=== PATIENT | male | born 1945 | race Caucasian/White ===

== ENCOUNTER 2016-03-18 13:53 | Emergency (ER) | payer BC, MEDICARE ==
[2016-03-18 15:26] LABS: MEAN CORPUSCULAR HGB CONC 33.7 g/dl (32.0-36.5); RED CELL DISTRIBUTION WIDTH 11.6 % (11.5-14.5); WHITE BLOOD COUNT 8.5 K/mm3 (4.0-10.0)
[2016-03-18 15:48] LABS: ALBUMIN/GLOBULIN RATIO 1.38 (1.00-1.93); ALKALINE PHOSPHATASE 76 U/L (45-117); ALT/SGPT 16 U/L (12-78); ANION GAP 6 MEQ/L (8-16); AST/SGOT 19 U/L (15-37); BILIRUBIN,DIRECT < 0.1 MG/DL (0.0-0.2); BILIRUBIN,TOTAL 0.4 MG/DL (0.2-1.0); BLOOD UREA NITROGEN 19 MG/DL (7-18); CALCIUM LEVEL 8.9 MG/DL (8.8-10.2); CARBON DIOXIDE LEVEL 28 MEQ/L (21-32); CHLORIDE LEVEL 104 MEQ/L (98-107); CREATININE FOR GFR 1.28 MG/DL (0.70-1.30); GLUCOSE, FASTING 93 MG/DL (83-110); POTASSIUM SERUM 4.3 MEQ/L (3.5-5.1); SODIUM LEVEL 138 MEQ/L (136-145); TOTAL PROTEIN 6.9 GM/DL (6.4-8.2)
[2016-03-18 15:53] LABS: AMPHETAMINES LEVEL URINE NEGATIVE (NEGATIVE); BENZODIAZEPINES URINE NEGATIVE (NEGATIVE); COCAINE METABOLITE URINE NEGATIVE (NEGATIVE); CONTROL LINE INT CTR LINE PRESENT; METHADONE URINE NEGATIVE (NEGATIVE); OPIATES URINE NEGATIVE (NEGATIVE); TRICYCLIC ANTIDEPRESS URINE POSITIVE (NEGATIVE)
--- NOTE | 2016-03-18 18:15 | EDDOCDS ---
Physician Documentation [facility] Name: Herman Palomares Age: 70 yrs Sex: Male : 1945 Arrival Date: 03/18/2016 Time: 13:53 Bed [facility] Private MD: Disposition: 03/18 17:39 Critical Care: Critical care not applicable. pc Disposition: 03/18/16 17:42 Discharged to Home/Self Care. Impression: Alcohol use, unspecified with alcohol-induced persisting dementia. - Condition is Stable. - Discharge Instructions: Dementia. - Medication Reconciliation, Local Pharmacy Hours form. - Follow up: [facility] [place], [place]; When: Call to arrange an appointment; Reason: Continuance of care. - Problem is chronic. - Symptoms are unchanged. HPI: 15:03 This 70 yrs old Male presents to ER via Police Car with complaints of Psych Problem. 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 A visiting aid found him in his pc home today, with the gas of his stove turned on and a gun by the door, with the patient stating he was afraid to the people trying to get into his apartment. His [place] Psychiatrist issued a pick pulling machine operator order and police brought him here. He has a long-standing psychiatric history and also has dementia. He has been seen by his Psychiatrist recently and started on Seroquel. Historical: - Allergies: no known allergies; - Home Meds: 1. atorvastatin 20 mg oral tab 1 tab once daily (Last dose: 03/18/2016) 2. folic acid 1 mg Oral tab 1 tab once daily (Last dose: 03/18/2016) 3. hctz/lisinopril 12.5/10 mg 4. memantine 10 mg oral tab 2 times per day 5. multivitamin Oral cap daily 6. quetiapine 100 mg oral tab 1 tab hs 7. vitamin B complex oral cap daily 8. aspirin 81 mg Oral chew 1 tab once daily 9. Fish Oil 1,000 mg oral cap daily 10. garlic oral tab daily 11. naproxen 250 mg Oral tab 1 tab - PMHx: colon cancer; dementia/ memory loss; Hypercholesterolemia; Depression; - PSHx: Colon Resection; - The history from nurses notes was reviewed: and I agree with what is documented. - Social history: Smoking status: Patient uses tobacco products, current some day smoker. No barriers to communication noted, The patient speaks fluent Albanian. - Family history: Not pertinent. - : The pt / caregiver states he / she is not on anticoagulants. Home medication list is obtained from the patient. - Hospitalizations: : No recent hospitalization is reported. - Exposure Risk Screening:: None identified. - Immunization history:: All immunizations up-to-date. - Social history:: the patient is a non-smoker, the patient formerly used alcohol. ROS: 15:12 All systems are negative except as listed. The psychiatric and neurological components pc are also addressed in the HPI. Exam: 15:12 General Appearance: alert, no acute distress. pc 15:12 ENT: ear, nose and throat normal, pharynx normal. 15:12 Eyes: pupils equal, round and reactive to light, extraocular motions intact. 15:12 Neck: The exam reveals no acute abnormalities. ROM is normal and painless. No nuchal rigidity is noted.. 15:12 Respiratory: breathing is even and unlabored, breath sounds are normal. 15:12 Cardiovascular: regular pulse rate, regular heart rhythm, normal heart sounds, equal and full pulses bilaterally. 15:12 Abdomen: soft, non-tender, no organomegaly, normal bowel sounds. 15:12 Skin: skin color is normal, warm, dry. 15:12 Extremities: The extremities have a grossly normal appearance, are non-tender, without acute ROM abnormalities. 15:12 Neuro: alert, cranial nerves normal as tested, no motor deficits, no sensory deficits, disoriented to time. 15:12 Psych: mood is normal. Vital Signs: 14:02 BP 100 / 63; Pulse 93; Resp 16; Temp 97.9; Pulse Ox 100% on R/A; Weight 63.5 kg / jmk 139.99 lbs; Height 5 ft. 11 in. (180.34 cm); 17:54 BP 130 / 69; Pulse 115; Resp 16; Temp 98.7(TE); Pulse Ox 100% on R/A; Pain 0/10; rn1 14:02 Body Mass Index 19.53 (63.50 kg, 180.34 cm) [facility] MDM: 14:38 Consult PFS/PSA/Banquet Lead: Patient's case requires discussion with on-call pc Psychiatrist ordered. 14:38 Confirm accurate psychiatric medication list and times of last dosage ordered. pc 14:38 Detain Pt Until Medically/PFS Cleared ordered. pc 14:39 Acetaminophen Level Ordered. EDMS 14:39 Basic Metabolic Profile Ordered. EDMS 14:39 Complete Blood Count Ordered. EDMS 14:39 Drug Eval Toxicology ED Only Ordered. EDMS 14:39 Ethyl Alcohol (ethanol) Ordered. EDMS 14:39 Liver Profile Ordered. EDMS 14:39 Salicylate Level Ordered. EDMS 14:39 Thyroid Stimulating Hormone Ordered. EDMS 15:12 Differential diagnosis: depression, acute psychosis, dementia. Plan: labs, PFS eval. pc 15:17 Financial registration complete. gjb 15:37 [facility] Payment Agreement was scanned into [employer] and attached to record. gjb 16:16 Acetaminophen Level Reviewed. pc 16:16 Basic Metabolic Profile Reviewed. pc 16:16 Complete Blood Count Reviewed. pc 16:16 Drug Eval Toxicology ED Only Reviewed. pc 16:16 Salicylate Level Reviewed. pc 16:16 Ethyl Alcohol (ethanol) Reviewed. pc 16:16 Liver Profile Reviewed. pc 16:16 Thyroid Stimulating Hormone Reviewed. pc 17:37 [facility] Legal paperwork was scanned into [employer] and attached to record. ml4 17:39 The patient has been medically cleared for psychiatric evaluation, admission and/or pc transfer. [place]: [place] to the [place] was not completed because the patient did not display any suicidal or homicidal ideation and was not considered a risk to self or others. Data reviewed: old medical records, vital signs, nurses notes, lab test results. Test interpretation: LAB - all labs as ordered have been reviewed, interpreted and considered in the overall management of the clinical presentation;. The patient has been re-examined and re-evaluated. The clinical presentation did not require any ED treatment or interventions. Other consultation: The ED latex foam worker was notified and will evaluate the patient. and through conversations with his family and Psychiatrist, he has had dementia for quite some time and only has had any psychiatric issues, that being depression, for a few weeks. His involvement with psychology services was for his alcohol abuse. Dr. Brantley was consulted and agrees with the daughter and has approved discharge home. . 17:39 Disposition: The historical points, examination findings, and any diagnostic results pc supporting the provided diagnosis, were discussed with the patient or legal guardian. The need for outpatient follow up with the provider listed on their discharge instructions was discussed. They were encouraged to return to [facility], or the nearest ED, if symptoms worsen/persist, or for any other questions/concerns. 18:14 Consult PFS/PSA/Banquet Lead: Patient's case requires discussion with on-call [facility] Psychiatrist complete. Signatures: Dispatcher [employer] EDNE Marlon Jewell MD MD pc Knapp, Jean,RN RN Hailee Barboza, PSA PSA [facility] Tessy Uriarte RN RN Renu Wong The chart was reviewed and I authenticate all verbal orders and agree with the evaluation and treatment provided.Corrections: (The following items were deleted from the chart) 18:13 17:41 REGULAR DIET PLASTIC NEW+DIET ordered. [facility] 18:14 14:38 PSA/PFS to call Nursing Syrup Shed Supervisor, to enter patient data on [place] if [facility] patient involuntarily admitted or transferred for SI or HI ordered. Attachments: 15:37 [facility] [place] barry MTDD
--- NOTE | 2016-03-18 18:15 | EDDOCDS ---
Nurse's Notes [facility] Name: Herman Palomares Age: 70 yrs Sex: Male : 1945 Arrival Date: 03/18/2016 Time: 13:[address] MD: Diagnosis: Alcohol use, unspecified with alcohol-induced persisting dementia Presentation: 03/18 13:59 Presenting complaint: Patient states: [facility] state police brought him here. [facility] neighbor has a vivid imagination. denies suicidal or homicidal ideation. [facility] is not aware of any problems. Mental Health Triage Level: Level 2: The patient was brought to the ED for evaluation because of a legal pickup order. Adult Sepsis Screening: The patient does not have new or worsening altered mentation. Patient's respiratory rate is less than 22. Systolic blood pressure is greater than 100. Patient has a qSOFA score of 0- Negative Sepsis Screen. Suicide/Homicide risk assessment- the patient denies having any suicidal and/or homicidal ideations and does not present with any other emotional, behavioral or mental health complaints. Status: retired. Transition of care: patient was not received from another setting of care. 13:59 Acuity: MICHELLE Level 4 [facility] 13:59 Method Of Arrival: Police Car [facility] Triage Assessment: 14:02 General: Appears in no apparent distress, alert and cooperative. responses slightly [facility] vague responses.. Pain: Denies pain. Historical: - Allergies: no known allergies; - Home Meds: 1. atorvastatin 20 mg oral tab 1 tab once daily (Last dose: 03/18/2016) 2. folic acid 1 mg Oral tab 1 tab once daily (Last dose: 03/18/2016) 3. hctz/lisinopril 12.5/10 mg 4. memantine 10 mg oral tab 2 times per day 5. multivitamin Oral cap daily 6. quetiapine 100 mg oral tab 1 tab hs 7. vitamin B complex oral cap daily 8. aspirin 81 mg Oral chew 1 tab once daily 9. Fish Oil 1,000 mg oral cap daily 10. garlic oral tab daily 11. naproxen 250 mg Oral tab 1 tab - PMHx: colon cancer; dementia/ memory loss; Hypercholesterolemia; Depression; - PSHx: Colon Resection; - The history from nurses notes was reviewed: and I agree with what is documented. - Social history: Smoking status: Patient uses tobacco products, current some day smoker. No barriers to communication noted, The patient speaks fluent [place]. - Family history: Not pertinent. - : The pt / caregiver states he / she is not on anticoagulants. Home medication list is obtained from the patient. - Hospitalizations: : No recent hospitalization is reported. - Exposure Risk Screening:: None identified. - Immunization history:: All immunizations up-to-date. - Social history:: the patient is a non-smoker, the patient formerly used alcohol. Screenin:08 Screening information is obtained from the patient. Fall risk: No risks identified. jmk Assistance ADL's: requires no assistance with activities of daily living. Abuse/DV Screen: The patient / caregiver reports he/she is: not in a situation that causes fear, pain or injury. Nutritional screening: No deficits noted. Advance Directives: Currently, there is a health care proxy, harvey davenport, daughter. There is There is no living will. There is no Power of Yarder Engineer. Advance directive information has not previously been placed in an [facility] medical record. home support is adequate. Assessment: 14:08 General: Appears alert and cooperative. appropriate eye contact and content of jmk responses.. 16:26 General: Appears in no apparent distress, comfortable, Behavior is cooperative. Pain: mlb1 Denies pain. Neurological:. Respiratory: Airway is patent Respiratory effort is even, unlabored. 17:30 General: Appears in no apparent distress, comfortable, Behavior is cooperative, quiet. mlb1 Pain: Denies pain. Neurological: Level of Consciousness is awake, alert, Oriented to person, place. Respiratory: No deficits noted. 18:11 General: Appears in no apparent distress, comfortable, Behavior is cooperative. Pain: jc4 Denies pain. Neurological: Level of Consciousness is awake, alert, Oriented to person, place. Respiratory: Airway is patent Respiratory effort is even, unlabored, Respiratory pattern is regular, symmetrical. Derm: Skin is pink, warm & dry. Mental Health Eval: 16:23 Mental health consult is initiated at 16:00. Status: The patient is not a gate services supervisor or dependent. [facility] Behavioral Health: The patient is not an established patient of [facility] Behavioral Health. Referral Information: Evaluation referral is generated by the patient's psychiatrist Dr. Hernandez [facility], came in on a 9:41 group segment consultant order with [facility] Fernleylali Khan #[id number]. The patient was referred for evaluation because Pt had a "Shotgun in his apartment, and left the gas stove on," per [place] care givers who came into evaluate the pt for more home care on Wednesday, per Harvey Palomares [phone], pt's daughter. Pt reports he has had that BB gun rifle for years in the same spot, and the stove is malfunctioning and has informed the landlord. Pt has early onset of dementia and has been seeing Dr. Hernandez for one year getting help to stop drinking alcohol after 40 run with alcohol. Pt reports he has stopped just shy of one year, drinks non alcohol beer at this time. Pt reports he does not wish to , or kill anyone, denies hearing voices, and is not worried about his neighbors, because that is the reason he does not wish to leave [place] and reside with his daughter and Xwife near [place], not familiar with anyone or the place. Harvey reports luciano has no psyche history, no attempts or threats of suicide, no family history, is compliant with his medications, and was just but on [place] by this Dr. Hernandez. Harvey has set up the US care to increase someone coming into his apartment, has [employer] coming in to set up meals so they will be able to shut off the stove, and has no safety concerns about her father at this time. Harvey would love to have him move down with her, no family in the area, but many friends. She was able to CFS for her father as well, stating the Dr. Hernandez would like to see him placed in an assisted living. Luciano still drives and has a Breathalyzer because of a DWI conviction one year ago. Subjective: The patients chief complaint is Pt reports confused at times, likes were he lives, not sure why he was made to come in, remembers he has a broken BB gun rifle in his apartment and the stove was on because it came back on when he turned it off, he denies hearing voices, and is no paranoid about his surroundings has been in [facility] since [facility] [place] [employer] with his . Pt is A&O X4 , denies any HX of inpatient, suicide attempts, or threats, no family history, daughter confirms the same. Pt does state he misses drinking the real stuff, but is doing fine at this time, has a great way to remember how to remember where he alatorre his car, " I stop before I leave the car, turn around and pay attention to what I see, and then walk to where I am going" . Delusions are denied. Patient's mood is appropriate. Hallucinations are denied. Mental Health history: no relevant mental health problems or treatments. alcohol abuse, Mental Health Admissions: None. Current Outpatient Mental Health Services: Psychiatrist / Agency: Dr. Hernandez for his alcohol abuse and "Getting professional help". Current living environment is The patient currently lives Alone, daughter in [facility] calls regularily and has community support in home to set up his medications, and home care. The patient is . Patient presents to Emergency Department with the following symptoms within the past 2 weeks: sleep disturbance - insomnia. Substance abuse: Pt denies. Mental status exam: Patients appearance is appropriate, Patient's behavior is cooperative, Speech is normal. Affect is appropriate. Mood is appropriate. Hallucinations are denied. Appetite is characterized by binges. Memory is fair. Energy level is tires easily. Content of thought is normal. Thought process is intact. Cognitive level is oriented to person, place, time and situation Patient's insight is good. Judgement is fair. Rapport with interviewer is good. Suicidal Ideation is not present. Homicidal ideation is not present. Disposition: Medically cleared for disposition by Marlon Jewell MD Psychiatric Consult is performed by phone with Dr Flavia Oconnor. 17:26 [facility] Admission Criteria: Not Applicable. Narrative: Cab pass for DC home to [place], informed his daughter, no safety concerns at this time, follow up referral to continue to see his for etoh abuse. Vital Signs: 14:02 BP 100 / 63; Pulse 93; Resp 16; Temp 97.9; Pulse Ox 100% on R/A; Weight 63.5 kg; Height jmk 5 ft. 11 in. (180.34 cm); 17:54 BP 130 / 69; Pulse 115; Resp 16; Temp 98.7(TE); Pulse Ox 100% on R/A; Pain 0/10; rn1 14:02 Body Mass Index 19.53 (63.50 kg, 180.34 cm) [facility] Vitals: 18:14 Log In time N/A- police car arrival. jc4 ED Course: 13:56 Patient visited by Will Bernstein. mm15 13:56 Patient moved to Waiting mm15 14:01 Triage Initiated jmk 14:01 Patient moved to I1 / M1 mcp 14:03 Marlon Jewell MD is Attending Physician. pc 14:08 The patient / caregiver is instructed regarding the plan of care and ED course. jmk 14:10 Patient visited by Sarai Sky. nb2 14:10 Psych Safety Check: Location: Medical Room. Visual Assessment: Cooperative. nb2 14:24 Patient visited by Sarai Sky. nb2 14:24 Psych Safety Check: Location: Medical Room. Visual Assessment: Cooperative. nb2 14:39 Patient visited by Marlon Jewell MD. pc 14:40 Psych Safety Check: Location: Medical Room. Visual Assessment:. nb2 14:41 Patient visited by Sarai Sky. nb2 14:55 Patient visited by Sarai Sky. nb2 14:55 Psych Safety Check: Location: Medical Room. Visual Assessment: Cooperative. nb2 15:05 Patient visited by Sarai Sky. nb2 15:05 Acetaminophen Level Sent. nb2 15:05 Basic Metabolic Profile Sent. nb2 15:05 Complete Blood Count Sent. nb2 15:05 Ethyl Alcohol (ethanol) Sent. nb2 15:05 Liver Profile Sent. nb2 15:05 Salicylate Level Sent. nb2 15:05 Thyroid Stimulating Hormone Sent. nb2 15:14 Patient moved to [facility] rn1 15:32 Patient visited by Channing Baxter. rn1 15:34 Drug Eval Toxicology ED Only Sent. mlb1 15:35 Patient name changed from Herman\\S\\\\S\\Lavetsky\\S\\ to Herman\\S\\D\\S\\Lavetsky. EDMS 15:37 [facility] Payment Agreement was scanned into [employer] and attached to record. gjb 15:51 Patient visited by Channing Baxter. rn1 16:02 Patient visited by Channing Baxter. rn1 16:10 Patient visited by Channing Baxter. rn1 16:27 Patient visited by Vinicius Gonzales RN. mlb1 16:36 Patient visited by Channing Baxter. rn1 16:59 Patient visited by Channing Baxter. rn1 17:14 Patient visited by Channing Baxter. rn1 17:37 E Legal paperwork was scanned into [employer] and attached to record. ml4 17:38 Patient visited by Channing Baxter. rn1 17:41 Patient visited by Vinicius Gonzales RN. mlb1 17:42 [facility] is Referral Physician. pc 18:12 No IV's were initiated during this patient's visit. No procedures done that require 4 assistance. Attachments: 17:37 E Legal paperwork ml4 Order Results: Lab Order: Acetaminophen Level; SPEC'M 03/18/16 15:03 Test: ACETAMINOPHEN LEVEL; Value: < 2.0; Range: 10.0-30.0; Abnormal: Below low normal; Units: UG/ML; Status: F Lab Order: Basic Metabolic Profile; SPEC'M 03/18/16 15:03 Test: GLUCOSE, FASTING; Value: 93; Range: 83-110; Units: MG/DL; Status: F Test: BLOOD UREA NITROGEN; Value: 19; Range: 7-18; Abnormal: Above high normal; Units: MG/DL; Status: F Test: CREATININE FOR GFR; Value: 1.28; Range: 0.70-1.30; Units: MG/DL; Status: F Test: GLOMERULAR FILTRATION RATE; Value: 59.0; Range: >42; Status: F Test: SODIUM LEVEL; Value: 138; Range: 136-145; Units: MEQ/L; Status: F Test: POTASSIUM SERUM; Value: 4.3; Range: 3.5-5.1; Units: MEQ/L; Status: F Test: CHLORIDE LEVEL; Value: 104; Range: 98-107; Units: MEQ/L; Status: F Test: CARBON DIOXIDE LEVEL; Value: 28; Range: 21-32; Units: MEQ/L; Status: F Test: ANION GAP; Value: 6; Range: 8-16; Abnormal: Below low normal; Units: MEQ/L; Status: F Test: CALCIUM LEVEL; Value: 8.9; Range: 8.8-10.2; Units: MG/DL; Status: F Test Note: ; Units are mL/min/1.73 m2 Chronic Kidney Disease Staging per NKF: Stage I & II GFR >=60 Normal to Mildly Decreased Stage III GFR 30-59 Moderately Decreased Stage IV GFR 15-29 Severely Decreased Stage V GFR <15 Very Little GFR Left ESRD GFR <15 on SOLAR ENERGY SYSTEM INSTALLER HELPER Lab Order: Complete Blood Count; SPEC'M 03/18/16 15:03 Test: WHITE BLOOD COUNT; Value: 8.5; Range: 4.0-10.0; Units: K/mm3; Status: F Test: RED BLOOD COUNT; Value: 4.09; Range: 4.30-6.10; Abnormal: Below low normal; Units: M/mm3; Status: F Test: HEMOGLOBIN; Value: 12.7; Range: 14.0-18.0; Abnormal: Below low normal; Units: g/dl; Status: F Test: HEMATOCRIT; Value: 37.6; Range: 42.0-52.0; Abnormal: Below low normal; Units: %; Status: F Test: MEAN CORPUSCULAR VOLUME; Value: 92.0; Range: 80.0-96.0; Units: fl; Status: F Test: MEAN CORPUSCULAR HEMOGLOBIN; Value: 31.0; Range: 27.0-33.0; Units: pg; Status: F Test: MEAN CORPUSCULAR HGB CONC; Value: 33.7; Range: 32.0-36.5; Units: g/dl; Status: F Test: RED CELL DISTRIBUTION WIDTH; Value: 11.6; Range: 11.5-14.5; Units: %; Status: F Test: PLATELET COUNT, AUTOMATED; Value: 359; Range: 150-450; Units: k/mm3; Status: F Lab Order: Drug Eval Toxicology ED Only; SPEC'M 03/18/16 15:28 Test: AMPHETAMINES LEVEL URINE; Value: NEGATIVE; Range: NEGATIVE; Status: F Test: BARBITURATES URINE; Value: NEGATIVE; Range: NEGATIVE; Status: F Test: BENZODIAZEPINES URINE; Value: NEGATIVE; Range: NEGATIVE; Status: F Test: CANNABINOIDS URINE; Value: NEGATIVE; Range: NEGATIVE; Status: F Test: COCAINE METABOLITE URINE; Value: NEGATIVE; Range: NEGATIVE; Status: F Test: METHADONE URINE; Value: NEGATIVE; Range: NEGATIVE; Status: F Test: OPIATES URINE; Value: NEGATIVE; Range: NEGATIVE; Status: F Test: TRICYCLIC ANTIDEPRESS URINE; Value: POSITIVE; Range: NEGATIVE; Abnormal: Above high normal; Status: F Test Note: ; ALL PRESUMPTIVE POSITIVE FINDINGS ARE UNCONFIRMED NORMAL VALUES THRESHOLD IN NG/ML AMPHETAMINES 1000 METHAMPHETAMINES 1000 BARBITURATES 300 BENZODIAZEPINES 300 CANNABINOIDS (THC) 50 COCAINE METABOLITE 300 METHADONE 300 OPIATES 300 PHENCYCLIDINE 25 TRICYCLIC ANTIDEPRESSANTS 1000 RESULTS ARE FOR MEDICAL PURPOSES ONLY. ALL URINE SPECIMENS WILL BE SAVED FOR 3 DAYS. IF CONFIRMATION OF A PRESUMPTIVE POSTIVE SCREEN RESULT IS DESIRED, CALL CHEMISTRY ([phone]) AND REQUEST URINE TO BE SENT TO REFERENCE LAB. FOR A LIST OF CLOSELY RELATED COMPOUNDS PLEASE CALL THE LAB. Lab Order: Ethyl Alcohol (ethanol); SPEC 03/18/16 15:03 Test: ETHYL ALCOHOL (ETHANOL); Value: < 0.003; Range: 0.000-0.010; Units: %; Status: F Lab Order: Liver Profile; [facility] 03/18/16 15:03 Test: AST/SGOT; Value: 19; Range: 15-37; Units: U/L; Status: F Test: ALT/SGPT; Value: 16; Range: 12-78; Units: U/L; Status: F Test: ALKALINE PHOSPHATASE; Value: 76; Range: 45-117; Units: U/L; Status: F Test: BILIRUBIN,TOTAL; Value: 0.4; Range: 0.2-1.0; Units: MG/DL; Status: F Test: BILIRUBIN,DIRECT; Value: < 0.1; Range: 0.0-0.2; Units: MG/DL; Status: F Test: TOTAL PROTEIN; Value: 6.9; Range: 6.4-8.2; Units: GM/DL; Status: F Test: ALBUMIN; Value: 4.0; Range: 3.2-5.2; Units: GM/DL; Status: F Test: ALBUMIN/GLOBULIN RATIO; Value: 1.38; Range: 1.00-1.93; Status: F Lab Order: Salicylate Level; [facility] 03/18/16 15:03 Test: SALICYLATE LEVEL; Value: 3.9; Range: 5.0-30.0; Abnormal: Below low normal; Units: MG/DL; Status: F Lab Order: Thyroid Stimulating Hormone; [facility] 03/18/16 15:03 Test: THYROID STIMULATING HORMONE; Value: 0.564; Range: 0.358-3.740; Units: uIU/ML; Status: F Outcome: 17:42 Discharge ordered by Provider. 18:12 Discharge Assessment: Patient awake, alert, patient administered narcotics - no. The jc4 following High Risk Discharge criteria are identified: Yes, patient is a high risk discharge due to reason for visit, patient has been evaluated by PSA during this ED visit. Discharged to home ambulatory, via [place]. Condition: stable. Discharge instructions given to patient, Instructed on discharge instructions, follow up and referral plans. No special radiology studies were completed. Property :Personal belongings accompany Pt. 18:14 Patient left the ED. 4 Signatures: Dispatcher [employer] EDMS Marlon Jewell MD MD pc Knapp, Jean,RN RN Shelly Mohr, RN RN Claire Pompa, PSA PSA ca Sandip Marquez, PSA PSA Vinicius Brown RN RN mlb1 Hailee Sánchez, PSA PSA ml4 Tessy Uriarte RN RN jc4 Will Bernstein mm15 Channing Baxter rn1 Renu Quintana Nicole nb2 DINA
--- NOTE | 2016-03-20 19:15 | EDDOCDS ---
Physician Documentation [facility] Name: Herman Palomares Age: 70 yrs Sex: Male : 1945 Arrival Date: 03/18/2016 Time: 13:53 Bed [facility] Private MD: Disposition: 03/18 17:39 Critical Care: Critical care not applicable. pc Disposition: 03/18/16 17:42 Discharged to Home/Self Care. Impression: Alcohol use, unspecified with alcohol-induced persisting dementia. - Condition is Stable. - Discharge Instructions: Dementia. - Medication Reconciliation, Local Pharmacy Hours form. - Follow up: [facility], [place]; When: Call to arrange an appointment; Reason: Continuance of care. - Problem is chronic. - Symptoms are unchanged. HPI: 15:03 This 70 yrs old Male presents to ER via Police Car with complaints of Psych Problem. pc 15:03 The history is obtained from the patient, case management assistant. A visiting aid found him in his pc home today, with the gas of his stove turned on and a gun by the door, with the patient stating he was afraid to the people trying to get into his apartment. His [place] Psychiatrist issued a bulk picker order and police brought him here. He has a long-standing psychiatric history and also has dementia. He has been seen by his Psychiatrist recently and started on Seroquel. Historical: - Allergies: no known allergies; - Home Meds: 1. atorvastatin 20 mg oral tab 1 tab once daily (Last dose: 03/18/2016) 2. folic acid 1 mg Oral tab 1 tab once daily (Last dose: 03/18/2016) 3. hctz/lisinopril 12.5/10 mg 4. memantine 10 mg oral tab 2 times per day 5. multivitamin Oral cap daily 6. quetiapine 100 mg oral tab 1 tab hs 7. vitamin B complex oral cap daily 8. aspirin 81 mg Oral chew 1 tab once daily 9. Fish Oil 1,000 mg oral cap daily 10. garlic oral tab daily 11. naproxen 250 mg Oral tab 1 tab - PMHx: colon cancer; dementia/ memory loss; Hypercholesterolemia; Depression; - PSHx: Colon Resection; - The history from nurses notes was reviewed: and I agree with what is documented. - Social history: Smoking status: Patient uses tobacco products, current some day smoker. No barriers to communication noted, The patient speaks fluent Romanian. - Family history: Not pertinent. - : The pt / caregiver states he / she is not on anticoagulants. Home medication list is obtained from the patient. - Hospitalizations: : No recent hospitalization is reported. - Exposure Risk Screening:: None identified. - Immunization history:: All immunizations up-to-date. - Social history:: the patient is a non-smoker, the patient formerly used alcohol. ROS: 15:12 All systems are negative except as listed. The psychiatric and neurological components pc are also addressed in the HPI. Exam: 15:12 General Appearance: alert, no acute distress. pc 15:12 ENT: ear, nose and throat normal, pharynx normal. 15:12 Eyes: pupils equal, round and reactive to light, extraocular motions intact. 15:12 Neck: The exam reveals no acute abnormalities. ROM is normal and painless. No nuchal rigidity is noted.. 15:12 Respiratory: breathing is even and unlabored, breath sounds are normal. 15:12 Cardiovascular: regular pulse rate, regular heart rhythm, normal heart sounds, equal and full pulses bilaterally. 15:12 Abdomen: soft, non-tender, no organomegaly, normal bowel sounds. 15:12 Skin: skin color is normal, warm, dry. 15:12 Extremities: The extremities have a grossly normal appearance, are non-tender, without acute ROM abnormalities. 15:12 Neuro: alert, cranial nerves normal as tested, no motor deficits, no sensory deficits, disoriented to time. 15:12 Psych: mood is normal. Vital Signs: 14:02 BP 100 / 63; Pulse 93; Resp 16; Temp 97.9; Pulse Ox 100% on R/A; Weight 63.5 kg / jmk 139.99 lbs; Height 5 ft. 11 in. (180.34 cm); 17:54 BP 130 / 69; Pulse 115; Resp 16; Temp 98.7(TE); Pulse Ox 100% on R/A; Pain 0/10; rn1 14:02 Body Mass Index 19.53 (63.50 kg, 180.34 cm) [facility] MDM: 14:38 Consult PFS/PSA/Real Estate Instructor: Patient's case requires discussion with on-call pc Psychiatrist ordered. 14:38 Confirm accurate psychiatric medication list and times of last dosage ordered. pc 14:38 Detain Pt Until Medically/PFS Cleared ordered. pc 14:39 Acetaminophen Level Ordered. EDMS 14:39 Basic Metabolic Profile Ordered. EDMS 14:39 Complete Blood Count Ordered. EDMS 14:39 Drug Eval Toxicology ED Only Ordered. EDMS 14:39 Ethyl Alcohol (ethanol) Ordered. EDMS 14:39 Liver Profile Ordered. EDMS 14:39 Salicylate Level Ordered. EDMS 14:39 Thyroid Stimulating Hormone Ordered. EDMS 15:12 Differential diagnosis: depression, acute psychosis, dementia. Plan: labs, PFS eval. pc 15:17 Financial registration complete. gjb 15:37 [facility] Payment Agreement was scanned into [email or web address] and attached to record. gjb 16:16 Acetaminophen Level Reviewed. pc 16:16 Basic Metabolic Profile Reviewed. pc 16:16 Complete Blood Count Reviewed. pc 16:16 Drug Eval Toxicology ED Only Reviewed. pc 16:16 Salicylate Level Reviewed. pc 16:16 Ethyl Alcohol (ethanol) Reviewed. pc 16:16 Liver Profile Reviewed. pc 16:16 Thyroid Stimulating Hormone Reviewed. pc 17:37 [facility] Legal paperwork was scanned into [email or web address] and attached to record. ml4 17:39 The patient has been medically cleared for psychiatric evaluation, admission and/or pc transfer. [place]: [place] to [place] was not completed because the patient did not display any suicidal or homicidal ideation and was not considered a risk to self or others. Data reviewed: old medical records, vital signs, nurses notes, lab test results. Test interpretation: LAB - all labs as ordered have been reviewed, interpreted and considered in the overall management of the clinical presentation;. The patient has been re-examined and re-evaluated. The clinical presentation did not require any ED treatment or interventions. Other consultation: The ED workers' compensation mediator was notified and will evaluate the patient. and through conversations with his family and Psychiatrist, he has had dementia for quite some time and only has had any psychiatric issues, that being depression, for a few weeks. His involvement with psychology services was for his alcohol abuse. Dr. Brantley was consulted and agrees with the daughter and has approved discharge home. . 17:39 Disposition: The historical points, examination findings, and any diagnostic results pc supporting the provided diagnosis, were discussed with the patient or legal guardian. The need for outpatient follow up with the provider listed on their discharge instructions was discussed. They were encouraged to return to [facility], or the nearest ED, if symptoms worsen/persist, or for any other questions/concerns. 18:14 Consult PFS/PSA/Real Estate Instructor: Patient's case requires discussion with on-call [facility] Psychiatrist complete. Signatures: Dispatcher [employer] EDPR Marlon Jewell MD MD pc Knapp, Jean,RN RN Hailee Barboza, PSA PSA [facility] Tessy Uriarte RN RN Renu Wong The chart was reviewed and I authenticate all verbal orders and agree with the evaluation and treatment provided.Corrections: (The following items were deleted from the chart) 18:13 17:41 REGULAR DIET PLASTIC NEW+DIET ordered. [facility] 18:14 14:38 PSA/PFS to call Nursing Compressor Operator, to enter patient data on [place] if [facility] patient involuntarily admitted or transferred for SI or HI ordered. Attachments: 15:37 [facility] [place] Agreement barry Chart Complete DINA
--- NOTE | 2016-03-20 19:15 | EDDOCDS ---
Nurse's Notes [facility] Name: Herman Palomares Age: 70 yrs Sex: Male : 1945 Arrival Date: 03/18/2016 Time: 13:[address] MD: Diagnosis: Alcohol use, unspecified with alcohol-induced persisting dementia Presentation: 03/18 13:59 Presenting complaint: Patient states: [facility] state police brought him here. [facility] neighbor has a vivid imagination. denies suicidal or homicidal ideation. [facility] is not aware of any problems. Mental Health Triage Level: Level 2: The patient was brought to the ED for evaluation because of a legal pickup order. Adult Sepsis Screening: The patient does not have new or worsening altered mentation. Patient's respiratory rate is less than 22. Systolic blood pressure is greater than 100. Patient has a qSOFA score of 0- Negative Sepsis Screen. Suicide/Homicide risk assessment- the patient denies having any suicidal and/or homicidal ideations and does not present with any other emotional, behavioral or mental health complaints. Status: retired. Transition of care: patient was not received from another setting of care. 13:59 Acuity: MICHELLE Level 4 [facility] 13:59 Method Of Arrival: Police Car [facility] Triage Assessment: 14:02 General: Appears in no apparent distress, alert and cooperative. responses slightly [facility] vague responses.. Pain: Denies pain. Historical: - Allergies: no known allergies; - Home Meds: 1. atorvastatin 20 mg oral tab 1 tab once daily (Last dose: 03/18/2016) 2. folic acid 1 mg Oral tab 1 tab once daily (Last dose: 03/18/2016) 3. hctz/lisinopril 12.5/10 mg 4. memantine 10 mg oral tab 2 times per day 5. multivitamin Oral cap daily 6. quetiapine 100 mg oral tab 1 tab hs 7. vitamin B complex oral cap daily 8. aspirin 81 mg Oral chew 1 tab once daily 9. Fish Oil 1,000 mg oral cap daily 10. garlic oral tab daily 11. naproxen 250 mg Oral tab 1 tab - PMHx: colon cancer; dementia/ memory loss; Hypercholesterolemia; Depression; - PSHx: Colon Resection; - The history from nurses notes was reviewed: and I agree with what is documented. - Social history: Smoking status: Patient uses tobacco products, current some day smoker. No barriers to communication noted, The patient speaks fluent Tanzanian. - Family history: Not pertinent. - : The pt / caregiver states he / she is not on anticoagulants. Home medication list is obtained from the patient. - Hospitalizations: : No recent hospitalization is reported. - Exposure Risk Screening:: None identified. - Immunization history:: All immunizations up-to-date. - Social history:: the patient is a non-smoker, the patient formerly used alcohol. Screenin:08 Screening information is obtained from the patient. Fall risk: No risks identified. jmk Assistance ADL's: requires no assistance with activities of daily living. Abuse/DV Screen: The patient / caregiver reports he/she is: not in a situation that causes fear, pain or injury. Nutritional screening: No deficits noted. Advance Directives: Currently, there is a health care proxy, harvey davenport, daughter. There is There is no living will. There is no Power of Training Designer. Advance directive information has not previously been placed in an [facility] medical record. home support is adequate. Assessment: 14:08 General: Appears alert and cooperative. appropriate eye contact and content of jmk responses.. 16:26 General: Appears in no apparent distress, comfortable, Behavior is cooperative. Pain: mlb1 Denies pain. Neurological:. Respiratory: Airway is patent Respiratory effort is even, unlabored. 17:30 General: Appears in no apparent distress, comfortable, Behavior is cooperative, quiet. mlb1 Pain: Denies pain. Neurological: Level of Consciousness is awake, alert, Oriented to person, place. Respiratory: No deficits noted. 18:11 General: Appears in no apparent distress, comfortable, Behavior is cooperative. Pain: jc4 Denies pain. Neurological: Level of Consciousness is awake, alert, Oriented to person, place. Respiratory: Airway is patent Respiratory effort is even, unlabored, Respiratory pattern is regular, symmetrical. Derm: Skin is pink, warm & dry. Mental Health Eval: 16:23 Mental health consult is initiated at 16:00. Status: The patient is not a loan service officer or dependent. [facility] Behavioral Health: The patient is not an established patient of [facility] Behavioral Health. Referral Information: Evaluation referral is generated by the patient's psychiatrist Dr. Hernandez [facility], came in on a 9:41 supervisor industrial arts education order with [facility] Milllali Khan #[phone]. The patient was referred for evaluation because Pt had a "Shotgun in his apartment, and left the gas stove on," per [place] care givers who came into evaluate the pt for more home care on Wednesday, per Harvey Palomares [phone], pt's daughter. Pt reports he has had that BB gun rifle for years in the same spot, and the stove is malfunctioning and has informed the landlord. Pt has early onset of dementia and has been seeing Dr. Hernandez for one year getting help to stop drinking alcohol after 40 run with alcohol. Pt reports he has stopped just shy of one year, drinks non alcohol beer at this time. Pt reports he does not wish to , or kill anyone, denies hearing voices, and is not worried about his neighbors, because that is the reason he does not wish to leave [place] and reside with his daughter and Xwife near [place], not familiar with anyone or the place. Harvey reports luciano has no psyche history, no attempts or threats of suicide, no family history, is compliant with his medications, and was just but on [place] by this Dr. Hernandez. Harvey has set up the [place] care to increase someone coming into his apartment, has [employer] coming in to set up meals so they will be able to shut off the stove, and has no safety concerns about her father at this time. Harvey would love to have him move down with her, no family in the area, but many friends. She was able to CFS for her father as well, stating the Dr. Hernandez would like to see him placed in an assisted living. Luciano still drives and has a Breathalyzer because of a DWI conviction one year ago. Subjective: The patients chief complaint is Pt reports confused at times, likes were he lives, not sure why he was made to come in, remembers he has a broken BB gun rifle in his apartment and the stove was on because it came back on when he turned it off, he denies hearing voices, and is no paranoid about his surroundings has been in [facility] since 1977 [place] [employer] with his . Pt is A&O X4 , denies any HX of inpatient, suicide attempts, or threats, no family history, daughter confirms the same. Pt does state he misses drinking the real stuff, but is doing fine at this time, has a great way to remember how to remember where he alatorre his car, " I stop before I leave the car, turn around and pay attention to what I see, and then walk to where I am going" . Delusions are denied. Patient's mood is appropriate. Hallucinations are denied. Mental Health history: no relevant mental health problems or treatments. alcohol abuse, Mental Health Admissions: None. Current Outpatient Mental Health Services: Psychiatrist / Agency: Dr. Hernandez for his alcohol abuse and "Getting professional help". Current living environment is The patient currently lives Alone, daughter in [facility] calls regularily and has community support in home to set up his medications, and home care. The patient is . Patient presents to Emergency Department with the following symptoms within the past 2 weeks: sleep disturbance - insomnia. Substance abuse: Pt denies. Mental status exam: Patients appearance is appropriate, Patient's behavior is cooperative, Speech is normal. Affect is appropriate. Mood is appropriate. Hallucinations are denied. Appetite is characterized by binges. Memory is fair. Energy level is tires easily. Content of thought is normal. Thought process is intact. Cognitive level is oriented to person, place, time and situation Patient's insight is good. Judgement is fair. Rapport with interviewer is good. Suicidal Ideation is not present. Homicidal ideation is not present. Disposition: Medically cleared for disposition by Marlon Jewell MD Psychiatric Consult is performed by phone with Dr Flavia Oconnor. 17:26 [facility] Admission Criteria: Not Applicable. Narrative: Cab pass for DC home to [place], informed his daughter, no safety concerns at this time, follow up referral to continue to see his for etoh abuse. Vital Signs: 14:02 BP 100 / 63; Pulse 93; Resp 16; Temp 97.9; Pulse Ox 100% on R/A; Weight 63.5 kg; Height jmk 5 ft. 11 in. (180.34 cm); 17:54 BP 130 / 69; Pulse 115; Resp 16; Temp 98.7(TE); Pulse Ox 100% on R/A; Pain 0/10; rn1 14:02 Body Mass Index 19.53 (63.50 kg, 180.34 cm) [facility] Vitals: 18:14 Log In time N/A- police car arrival. jc4 ED Course: 13:56 Patient visited by Will Bernstein. mm15 13:56 Patient moved to Waiting mm15 14:01 Triage Initiated jmk 14:01 Patient moved to I1 / M1 mcp 14:03 Marlon Jewell MD is Attending Physician. pc 14:08 The patient / caregiver is instructed regarding the plan of care and ED course. jmk 14:10 Patient visited by Sarai Sky. nb2 14:10 Psych Safety Check: Location: Medical Room. Visual Assessment: Cooperative. nb2 14:24 Patient visited by Sarai Sky. nb2 14:24 Psych Safety Check: Location: Medical Room. Visual Assessment: Cooperative. nb2 14:39 Patient visited by Marlon Jewell MD. pc 14:40 Psych Safety Check: Location: Medical Room. Visual Assessment:. nb2 14:41 Patient visited by Sarai Sky. nb2 14:55 Patient visited by Sarai Sky. nb2 14:55 Psych Safety Check: Location: Medical Room. Visual Assessment: Cooperative. nb2 15:05 Patient visited by Sarai Sky. nb2 15:05 Acetaminophen Level Sent. nb2 15:05 Basic Metabolic Profile Sent. nb2 15:05 Complete Blood Count Sent. nb2 15:05 Ethyl Alcohol (ethanol) Sent. nb2 15:05 Liver Profile Sent. nb2 15:05 Salicylate Level Sent. nb2 15:05 Thyroid Stimulating Hormone Sent. nb2 15:14 Patient moved to [facility] rn1 15:32 Patient visited by Channing Baxter. rn1 15:34 Drug Eval Toxicology ED Only Sent. mlb1 15:35 Patient name changed from Herman\\S\\\\S\\Lavetsky\\S\\ to Herman\\S\\D\\S\\Lavetsky. EDMS 15:37 [facility] [place] Agreement was scanned into [employer] and attached to record. gjb 15:51 Patient visited by Channing Baxter. rn1 16:02 Patient visited by Channing Baxter. rn1 16:10 Patient visited by Channing Baxter. rn1 16:27 Patient visited by Vinicius Gonzales RN. mlb1 16:36 Patient visited by Channing Baxter. rn1 16:59 Patient visited by Channing Baxter. rn1 17:14 Patient visited by Channing Baxter. rn1 17:37 E Legal paperwork was scanned into [employer] and attached to record. ml4 17:38 Patient visited by Channing Baxter. rn1 17:41 Patient visited by Vinicius Gonzales RN. mlb1 17:42 [facility] is Referral Physician. pc 18:12 No IV's were initiated during this patient's visit. No procedures done that require 4 assistance. Attachments: 17:37 E Legal paperwork ml4 Order Results: Lab Order: Acetaminophen Level; SPEC'M 03/18/16 15:03 Test: ACETAMINOPHEN LEVEL; Value: < 2.0; Range: 10.0-30.0; Abnormal: Below low normal; Units: UG/ML; Status: F Lab Order: Basic Metabolic Profile; SPEC'M 03/18/16 15:03 Test: GLUCOSE, FASTING; Value: 93; Range: 83-110; Units: MG/DL; Status: F Test: BLOOD UREA NITROGEN; Value: 19; Range: 7-18; Abnormal: Above high normal; Units: MG/DL; Status: F Test: CREATININE FOR GFR; Value: 1.28; Range: 0.70-1.30; Units: MG/DL; Status: F Test: GLOMERULAR FILTRATION RATE; Value: 59.0; Range: >42; Status: F Test: SODIUM LEVEL; Value: 138; Range: 136-145; Units: MEQ/L; Status: F Test: POTASSIUM SERUM; Value: 4.3; Range: 3.5-5.1; Units: MEQ/L; Status: F Test: CHLORIDE LEVEL; Value: 104; Range: 98-107; Units: MEQ/L; Status: F Test: CARBON DIOXIDE LEVEL; Value: 28; Range: 21-32; Units: MEQ/L; Status: F Test: ANION GAP; Value: 6; Range: 8-16; Abnormal: Below low normal; Units: MEQ/L; Status: F Test: CALCIUM LEVEL; Value: 8.9; Range: 8.8-10.2; Units: MG/DL; Status: F Test Note: ; Units are mL/min/1.73 m2 Chronic Kidney Disease Staging per NKF: Stage I & II GFR >=60 Normal to Mildly Decreased Stage III GFR 30-59 Moderately Decreased Stage IV GFR 15-29 Severely Decreased Stage V GFR <15 Very Little GFR Left ESRD GFR <15 on DESIGN DRAFTER CHIEF Lab Order: Complete Blood Count; SPEC'M 03/18/16 15:03 Test: WHITE BLOOD COUNT; Value: 8.5; Range: 4.0-10.0; Units: K/mm3; Status: F Test: RED BLOOD COUNT; Value: 4.09; Range: 4.30-6.10; Abnormal: Below low normal; Units: M/mm3; Status: F Test: HEMOGLOBIN; Value: 12.7; Range: 14.0-18.0; Abnormal: Below low normal; Units: g/dl; Status: F Test: HEMATOCRIT; Value: 37.6; Range: 42.0-52.0; Abnormal: Below low normal; Units: %; Status: F Test: MEAN CORPUSCULAR VOLUME; Value: 92.0; Range: 80.0-96.0; Units: fl; Status: F Test: MEAN CORPUSCULAR HEMOGLOBIN; Value: 31.0; Range: 27.0-33.0; Units: pg; Status: F Test: MEAN CORPUSCULAR HGB CONC; Value: 33.7; Range: 32.0-36.5; Units: g/dl; Status: F Test: RED CELL DISTRIBUTION WIDTH; Value: 11.6; Range: 11.5-14.5; Units: %; Status: F Test: PLATELET COUNT, AUTOMATED; Value: 359; Range: 150-450; Units: k/mm3; Status: F Lab Order: Drug Eval Toxicology ED Only; SPEC'M 03/18/16 15:28 Test: AMPHETAMINES LEVEL URINE; Value: NEGATIVE; Range: NEGATIVE; Status: F Test: BARBITURATES URINE; Value: NEGATIVE; Range: NEGATIVE; Status: F Test: BENZODIAZEPINES URINE; Value: NEGATIVE; Range: NEGATIVE; Status: F Test: CANNABINOIDS URINE; Value: NEGATIVE; Range: NEGATIVE; Status: F Test: COCAINE METABOLITE URINE; Value: NEGATIVE; Range: NEGATIVE; Status: F Test: METHADONE URINE; Value: NEGATIVE; Range: NEGATIVE; Status: F Test: OPIATES URINE; Value: NEGATIVE; Range: NEGATIVE; Status: F Test: TRICYCLIC ANTIDEPRESS URINE; Value: POSITIVE; Range: NEGATIVE; Abnormal: Above high normal; Status: F Test Note: ; ALL PRESUMPTIVE POSITIVE FINDINGS ARE UNCONFIRMED NORMAL VALUES THRESHOLD IN NG/ML AMPHETAMINES 1000 METHAMPHETAMINES 1000 BARBITURATES 300 BENZODIAZEPINES 300 CANNABINOIDS (THC) 50 COCAINE METABOLITE 300 METHADONE 300 OPIATES 300 PHENCYCLIDINE 25 TRICYCLIC ANTIDEPRESSANTS 1000 RESULTS ARE FOR MEDICAL PURPOSES ONLY. ALL URINE SPECIMENS WILL BE SAVED FOR 3 DAYS. IF CONFIRMATION OF A PRESUMPTIVE POSTIVE SCREEN RESULT IS DESIRED, CALL CHEMISTRY ([phone]) AND REQUEST URINE TO BE SENT TO REFERENCE LAB. FOR A LIST OF CLOSELY RELATED COMPOUNDS PLEASE CALL THE LAB. Lab Order: Ethyl Alcohol (ethanol); SPEC 03/18/16 15:03 Test: ETHYL ALCOHOL (ETHANOL); Value: < 0.003; Range: 0.000-0.010; Units: %; Status: F Lab Order: Liver Profile; [facility] 03/18/16 15:03 Test: AST/SGOT; Value: 19; Range: 15-37; Units: U/L; Status: F Test: ALT/SGPT; Value: 16; Range: 12-78; Units: U/L; Status: F Test: ALKALINE PHOSPHATASE; Value: 76; Range: 45-117; Units: U/L; Status: F Test: BILIRUBIN,TOTAL; Value: 0.4; Range: 0.2-1.0; Units: MG/DL; Status: F Test: BILIRUBIN,DIRECT; Value: < 0.1; Range: 0.0-0.2; Units: MG/DL; Status: F Test: TOTAL PROTEIN; Value: 6.9; Range: 6.4-8.2; Units: GM/DL; Status: F Test: ALBUMIN; Value: 4.0; Range: 3.2-5.2; Units: GM/DL; Status: F Test: ALBUMIN/GLOBULIN RATIO; Value: 1.38; Range: 1.00-1.93; Status: F Lab Order: Salicylate Level; [facility] 03/18/16 15:03 Test: SALICYLATE LEVEL; Value: 3.9; Range: 5.0-30.0; Abnormal: Below low normal; Units: MG/DL; Status: F Lab Order: Thyroid Stimulating Hormone; [facility] 03/18/16 15:03 Test: THYROID STIMULATING HORMONE; Value: 0.564; Range: 0.358-3.740; Units: uIU/ML; Status: F Outcome: 17:42 Discharge ordered by Provider. 18:12 Discharge Assessment: Patient awake, alert, patient administered narcotics - no. The jc4 following High Risk Discharge criteria are identified: Yes, patient is a high risk discharge due to reason for visit, patient has been evaluated by PSA during this ED visit. Discharged to home ambulatory, via [place]. Condition: stable. Discharge instructions given to patient, Instructed on discharge instructions, follow up and referral plans. No special radiology studies were completed. Property :Personal belongings accompany Pt. 18:14 Patient left the ED. 4 Signatures: Dispatcher [employer] EDMS Marlon Jewell MD MD pc Knapp, Jean,RN RN Shelly Mohr, RN RN Claire Pompa, PSA PSA ca Sandip Marquez, PSA PSA Vinicius Brown RN RN mlb1 Hailee Sánchez, PSA PSA ml4 Tessy Uriarte RN RN jc4 Will Bernstein mm15 Channing Baxter rn1 Renu Quintana Nicole nb2 Chart Complete MTDDanae
--- NOTE | 2016-03-20 19:15 | EDDOCDS ---
Physician Documentation [facility] Name: Herman Palomares Age: 70 yrs Sex: Male : 1945 Arrival Date: 03/18/2016 Time: 13:53 Bed [facility] Private MD: Disposition: 03/18 17:39 Critical Care: Critical care not applicable. pc Disposition: 03/18/16 17:42 Discharged to Home/Self Care. Impression: Alcohol use, unspecified with alcohol-induced persisting dementia. - Condition is Stable. - Discharge Instructions: Dementia. - Medication Reconciliation, Local Pharmacy Hours form. - Follow up: [facility] [place]; When: Call to arrange an appointment; Reason: Continuance of care. - Problem is chronic. - Symptoms are unchanged. HPI: 15:03 This 70 yrs old Male presents to ER via Police Car with complaints of Psych Problem. pc 15:03 The history is obtained from the patient, nurse case management. A visiting aid found him in his pc home today, with the gas of his stove turned on and a gun by the door, with the patient stating he was afraid to the people trying to get into his apartment. His [place] Psychiatrist issued a pick up operator order and police brought him here. He has a long-standing psychiatric history and also has dementia. He has been seen by his Psychiatrist recently and started on Seroquel. Historical: - Allergies: no known allergies; - Home Meds: 1. atorvastatin 20 mg oral tab 1 tab once daily (Last dose: 03/18/2016) 2. folic acid 1 mg Oral tab 1 tab once daily (Last dose: 03/18/2016) 3. hctz/lisinopril 12.5/10 mg 4. memantine 10 mg oral tab 2 times per day 5. multivitamin Oral cap daily 6. quetiapine 100 mg oral tab 1 tab hs 7. vitamin B complex oral cap daily 8. aspirin 81 mg Oral chew 1 tab once daily 9. Fish Oil 1,000 mg oral cap daily 10. garlic oral tab daily 11. naproxen 250 mg Oral tab 1 tab - PMHx: colon cancer; dementia/ memory loss; Hypercholesterolemia; Depression; - PSHx: Colon Resection; - The history from nurses notes was reviewed: and I agree with what is documented. - Social history: Smoking status: Patient uses tobacco products, current some day smoker. No barriers to communication noted, The patient speaks fluent Albanian. - Family history: Not pertinent. - : The pt / caregiver states he / she is not on anticoagulants. Home medication list is obtained from the patient. - Hospitalizations: : No recent hospitalization is reported. - Exposure Risk Screening:: None identified. - Immunization history:: All immunizations up-to-date. - Social history:: the patient is a non-smoker, the patient formerly used alcohol. ROS: 15:12 All systems are negative except as listed. The psychiatric and neurological components pc are also addressed in the HPI. Exam: 15:12 General Appearance: alert, no acute distress. pc 15:12 ENT: ear, nose and throat normal, pharynx normal. 15:12 Eyes: pupils equal, round and reactive to light, extraocular motions intact. 15:12 Neck: The exam reveals no acute abnormalities. ROM is normal and painless. No nuchal rigidity is noted.. 15:12 Respiratory: breathing is even and unlabored, breath sounds are normal. 15:12 Cardiovascular: regular pulse rate, regular heart rhythm, normal heart sounds, equal and full pulses bilaterally. 15:12 Abdomen: soft, non-tender, no organomegaly, normal bowel sounds. 15:12 Skin: skin color is normal, warm, dry. 15:12 Extremities: The extremities have a grossly normal appearance, are non-tender, without acute ROM abnormalities. 15:12 Neuro: alert, cranial nerves normal as tested, no motor deficits, no sensory deficits, disoriented to time. 15:12 Psych: mood is normal. Vital Signs: 14:02 BP 100 / 63; Pulse 93; Resp 16; Temp 97.9; Pulse Ox 100% on R/A; Weight 63.5 kg / jmk 139.99 lbs; Height 5 ft. 11 in. (180.34 cm); 17:54 BP 130 / 69; Pulse 115; Resp 16; Temp 98.7(TE); Pulse Ox 100% on R/A; Pain 0/10; rn1 14:02 Body Mass Index 19.53 (63.50 kg, 180.34 cm) [facility] MDM: 14:38 Consult PFS/PSA/Stockroom Helper: Patient's case requires discussion with on-call pc Psychiatrist ordered. 14:38 Confirm accurate psychiatric medication list and times of last dosage ordered. pc 14:38 Detain Pt Until Medically/PFS Cleared ordered. pc 14:39 Acetaminophen Level Ordered. EDMS 14:39 Basic Metabolic Profile Ordered. EDMS 14:39 Complete Blood Count Ordered. EDMS 14:39 Drug Eval Toxicology ED Only Ordered. EDMS 14:39 Ethyl Alcohol (ethanol) Ordered. EDMS 14:39 Liver Profile Ordered. EDMS 14:39 Salicylate Level Ordered. EDMS 14:39 Thyroid Stimulating Hormone Ordered. EDMS 15:12 Differential diagnosis: depression, acute psychosis, dementia. Plan: labs, PFS eval. pc 15:17 Financial registration complete. gjb 15:37 [facility] Payment Agreement was scanned into Its Time Compliance and attached to record. gjb 16:16 Acetaminophen Level Reviewed. pc 16:16 Basic Metabolic Profile Reviewed. pc 16:16 Complete Blood Count Reviewed. pc 16:16 Drug Eval Toxicology ED Only Reviewed. pc 16:16 Salicylate Level Reviewed. pc 16:16 Ethyl Alcohol (ethanol) Reviewed. pc 16:16 Liver Profile Reviewed. pc 16:16 Thyroid Stimulating Hormone Reviewed. pc 17:37 [facility] Legal paperwork was scanned into Its Time Compliance and attached to record. ml4 17:39 The patient has been medically cleared for psychiatric evaluation, admission and/or pc transfer. [place]: [place] was not completed because the patient did not display any suicidal or homicidal ideation and was not considered a risk to self or others. Data reviewed: old medical records, vital signs, nurses notes, lab test results. Test interpretation: LAB - all labs as ordered have been reviewed, interpreted and considered in the overall management of the clinical presentation;. The patient has been re-examined and re-evaluated. The clinical presentation did not require any ED treatment or interventions. Other consultation: The ED needleworker was notified and will evaluate the patient. and through conversations with his family and Psychiatrist, he has had dementia for quite some time and only has had any psychiatric issues, that being depression, for a few weeks. His involvement with psychology services was for his alcohol abuse. Dr. Brantley was consulted and agrees with the daughter and has approved discharge home. . 17:39 Disposition: The historical points, examination findings, and any diagnostic results pc supporting the provided diagnosis, were discussed with the patient or legal guardian. The need for outpatient follow up with the provider listed on their discharge instructions was discussed. They were encouraged to return to [facility], or the nearest ED, if symptoms worsen/persist, or for any other questions/concerns. 18:14 Consult PFS/PSA/Stockroom Helper: Patient's case requires discussion with on-call [facility] Psychiatrist complete. Signatures: Dispatcher [employer] EDIA Marlon Jewell MD MD pc Knapp, Jean,RN RN Hailee Barboza, PSA PSA [facility] Tessy Uriarte RN RN Renu Wong The chart was reviewed and I authenticate all verbal orders and agree with the evaluation and treatment provided.Corrections: (The following items were deleted from the chart) 18:13 17:41 REGULAR DIET PLASTIC NEW+DIET ordered. [facility] 18:14 14:38 PSA/PFS to call Nursing Bean Sprout Laborer, to enter patient data on [place] if [facility] patient involuntarily admitted or transferred for SI or HI ordered. Attachments: 15:37 [facility] Payment Agreement barry Chart Complete DINA
== END 2016-03-18 18:14 | disposition home or self-care (01) ==
LOC: M ED 13:53
DX: F10.97 Alcohol use, unspecified with alcohol-induced persisting dementia (principal); F03.90 Unspecified dementia, unspecified severity, without behavioral disturbance, psychotic disturbance, mood disturbance, and anxiety; E78.00 Pure hypercholesterolemia, unspecified; F32.9 Major depressive disorder, single episode, unspecified; Z85.038 Personal history of other malignant neoplasm of large intestine; F17.210 Nicotine dependence, cigarettes, uncomplicated; Z79.82 Long term (current) use of aspirin; Z79.899 Other long term (current) drug therapy
CPT/HCPCS: 36415; 80048; 80076; 80306; 84443; 85027; 99283; G0480

== ENCOUNTER 2016-08-25 18:02 | Inpatient (IN) | payer MEDICARE ==
[~2016-08-25] VITALS: Ht 172.7 cm; Wt 54.8 kg
[2016-08-25] MEDS ORDERED: VITATAB11 PO (18:17)
[2016-08-25] MEDS ORDERED: ATOR1TAB21 PO (18:17)
[2016-08-25] MEDS ORDERED: GARL10004 PO (18:17)
[2016-08-25] MEDS ORDERED: QUET1TAB8 PO (18:17)
[2016-08-25] MEDS ORDERED: NAME5TAB13 PO (18:17)
[2016-08-25] MEDS ORDERED: FOLI5INJ2 SC (18:17)
[2016-08-25] MEDS ORDERED: ASPI81TA85 PO (18:17)
[2016-08-25] MEDS ORDERED: LISI10TA2 PO (18:17)
[2016-08-25] MEDS ORDERED: FISH100049 PO (18:17)
[2016-08-25 18:42] LABS: BASO % 0.6 % (0.0-1.0); EOS # 0.2 K/mm3 (0.0-0.50); EOS % 2.8 % (0.0-3.0); LARGE UNSTAINED CELL # 0.2 K/mm3 (0.0-0.4); LARGE UNSTAINED CELL % 2.9 % (0.0-4.0); LYMPH # 1.4 K/mm3 (1.5-4.5); LYMPH % 22.9 % (24.0-44.0); MEAN CORPUSCULAR HEMOGLOBIN 31.8 pg (27.0-33.0); MEAN CORPUSCULAR VOLUME 96.3 fl (80.0-96.0); MONO # 0.4 K/mm3 (0.0-0.8); MONO % 6.8 % (0.0-5.0); NEUTROPHILS # 3.4 K/mm3 (1.8-7.7); NEUTROPHILS % 64.1 % (36.0-66.0); PLATELET COUNT, AUTOMATED 319 k/mm3 (150-450); RED CELL DISTRIBUTION WIDTH 12.6 % (11.5-14.5); WHITE BLOOD COUNT 5.3 K/mm3 (4.0-10.0)
[2016-08-25] MEDS ORDERED: NS 500 ML IV ONE (18:45)
--- NOTE | 2016-08-25 19:00 | REPUSA ---
CT of the head Clinical history: altered mental status. Protocol: Multiple axial CT images obtained with 5 mm slice thickness were obtained through the head without administration of contrast. Findings: The ventricles and sulci are symmetric but prominent in size bilaterally. There are periven tricular areas of low attenuation throughout the deep white matter. There is no evidence of acute hem orrhage or infarct. There is no midline shift, mass effect, or extra-axial fluid collection. The osse ous structures are unremarkable. The visualized paranasal sinuses and mastoid air cells are clear. Impression: No acute hemorrhage or infarct. Findings are consistent with age-related atrophy and employment supervisor jessica small vessel ischemic disease.
--- NOTE | 2016-08-25 19:10 | REP ---
REASON: Altered mental status and chest pain. COMPARISON: 11/28/2009. FINDINGS: The technique utilized in obtaining the radiograph has magnified the cardiac silhouette and accentuated the interstitial markings. The superior mediastinal structures are midline. The cardiac silhouette is unremarkable in size, shape, and position. The diaphragmatic surfaces of the lungs are regular, and the costophrenic angles are clear. The pulmonary chamorro are clear. The imaged osseous structures are intact. Healed/healing fractures are seen involving the right 9th rib. IMPRESSION: There is no acute cardiopulmonary disease. Signed by Landon Goss DO 08/25/2016 07:52 P
[2016-08-25 19:47] LABS: OSMOLALITY SERUM 292 MOSM/KG (280-301)
[2016-08-25 20:09] LABS: ALBUMIN/GLOBULIN RATIO 1.48 (1.00-1.93); ALKALINE PHOSPHATASE 74 U/L (45-117); ALT/SGPT 16 U/L (12-78); ANION GAP 7 MEQ/L (8-16); AST/SGOT 14 U/L (15-37); BILIRUBIN,DIRECT 0.1 MG/DL (0.0-0.2); BILIRUBIN,TOTAL 0.6 MG/DL (0.2-1.0); BLOOD UREA NITROGEN 15 MG/DL (7-18); CARBON DIOXIDE LEVEL 28 MEQ/L (21-32); CHLORIDE LEVEL 106 MEQ/L (98-107); CREATININE FOR GFR 1.02 MG/DL (0.70-1.30); GLOMERULAR FILTRATION RATE > 60.0 (>42); GLUCOSE, FASTING 96 MG/DL (83-110); POTASSIUM SERUM 3.9 MEQ/L (3.5-5.1); SODIUM LEVEL 141 MEQ/L (136-145); TOTAL PROTEIN 6.7 GM/DL (6.4-8.2)
[2016-08-25] MEDS ORDERED: ASPI81TAEC PO (21:07)
[2016-08-25] MEDS ORDERED: FOLI1TAB4 PO (21:07)
[2016-08-25] MEDS ORDERED: ATOR40TA75 PO (21:07)
[2016-08-25] MEDS ORDERED: MEMA1TAB2 PO (21:07)
[2016-08-25] MEDS ORDERED: PATIENT COMMENT (21:07)
[2016-08-25] MEDS ORDERED: OXAZEPAM 10 MG CAP PO PRN (21:30)
[2016-08-25] MEDS ORDERED: ONDANSETRON 4MG/2ML VIAL (J2405) IV PRN (21:30)
[2016-08-25] MEDS ORDERED: OXAZEPAM 10 MG CAP PO SCH (22:00)
[2016-08-25] MEDS ORDERED: MULTIVITAMIN -ADULT INJECTION 10 ML, THIAMINE INJection 100 MG, FOLIC ACID 1 MG in NS 1... IV ONE (22:00)
--- NOTE | 2016-08-25 22:10 | HPE ---
DATE OF ADMISSION: 08/25/2016 CHIEF COMPLAINT: Altered mental status. PRIMARY CARE PROVIDER: Unknown. HISTORY OF PRESENT ILLNESS: Limited by patient's mental status. This is a 70-year-old male patient. Based on medication review, patient likely has underlying dementia with hypertension with dyslipidemia. As per emergency department (ED) physician, patient was found on neighbor's porch confused. Subsequently, emergency medical services (EMS) was called. Patient was brought here. In the emergency room patient was confused, alert, oriented to person. Thinks that this is 1917. Does not know where he is and does not know why he is at the hospital. Patient could not give a full past medical history or past surgical history. Does not know if he has any family. Speaks in gibberish. Is eating in the emergency room. Has pulled out his intravenous (IV). Able to move all four extremities. Denies any chest pain, pressure, or discomfort. Denies any abdominal pain. Denies any vision change. Further history is limited. ALLERGIES: Unobtainable. PAST MEDICAL HISTORY: Unobtainable. Likely patient has hypertension, dementia, and has previous emergency department (ED) visits for alcohol intoxication. PAST SURGICAL HISTORY: Unable to obtain. SOCIAL HISTORY: Unable to obtain, but does have history of alcohol intoxication. REVIEW OF SYSTEMS: Unable to obtain. The patient denies any chest pain, abdominal pain, shortness of breath, or cough. HOME MEDICATIONS: - aspirin 81 mg by mouth daily - Lipitor 20 mg by mouth daily - vitamin D complex by mouth daily - fish oil one capsule by mouth daily - folic acid 1 mg by mouth daily - garlic 1000 mg by mouth daily - lisinopril/hydrochlorothiazide 10/12.5 combination by mouth daily - memantine 10 mg by mouth twice a day - Seroquel 100 mg by mouth at bedtime VITAL SIGNS: Temperature 98.1, pulse 74, respirations 18, blood pressure 159/75, pulse oximetry 90% on room air. GENERAL: Patient alert, awake, follows simple commands. Oriented to self only. HEENT: Normocephalic, atraumatic. PULMONARY: Bilaterally clear to auscultation. CARDIAC: Regular rate and rhythm. Normal S1, S2. ABDOMEN: Soft, nontender, positive bowel sounds. EXTREMITIES: No edema, bilateral lower extremities. NEUROLOGIC: Cranial nerves II-XII grossly intact. Able to move all four extremities. No focal deficits. LABORATORY DATA: WBC 5.3, hemoglobin and hematocrit 12.8/38.7, platelets 319. Chemistry: Sodium 141, potassium 3.9, chloride 106, bicarbonate 28, BUN 15, creatinine 1.02, lactic acid 1.1. AST 14, ALT 16, alkaline phosphatase 74. TSH 1.13. Urine toxicology still pending. CT scan: No acute hemorrhage or infarct. ASSESSMENT AND PLAN: This is a 70-year-old male patient with underlying medical history of likely hypertension, dyslipidemia, and dementia, admitted for altered mental status. 1. Altered mental status. Differential diagnosis includes alcohol, worsening dementia, drug. Based on patient's labs, it does not appear to e infectious and patient has no lateralizing signs suggestive of a stroke. CT scan has been appreciated. Neurologic checks. One-to-one observation. Urine toxicology. Ammonia level. Banana bag, thiamine, folate, multivitamin, Serax standing and as needed. Monitor for withdrawal. Social work has been consulted. Consider further neurological evaluation. Close monitoring. 2. Hypertension. Continue blood pressure medication, holding hydrochlorothiazide. Continue lisinopril, aspirin, statin. 3. Dementia. Supportive care. Patient and family services (PFS) consulted. 4. Deep vein thrombosis (DVT) prophylaxis. Lovenox subcu. DISPOSITION PLANNING: Pending social work, further history, urine toxicology, ammonia level. Will get erythrocyte sedimentation rate (ESR), C-reactive protein (CRP), rapid plasma reagin (RPR), and MRI to complete a workup.
[2016-08-25 22:11] LABS: METHADONE URINE NEGATIVE (NEGATIVE)
--- NOTE | 2016-08-25 23:37 | IPN ---
DATE: 08/25/2016 Spoken to patient's daughterPreeti, phone number is [phone]. As per patient's daughter, the patient sees primary care provider at the [facility] and sees psychiatrist for dementia. Only medical history that the patient's daughter is aware is dementia. As per patient's daughter, the patient has been diagnosed with dementia about 2 years ago when the patient's girlfriend was taken away from him, placed in a facility. Subsequently, the patient was taken by the daughter to [place], but en route, the patient became delirious with worsening dementia, had a full workup by the physicians in [place], was diagnosed with early onset dementia. Subsequently, was advised to place the patient back to his regular environment, which has been done. The patient was brought back to his old home and subsequently set up followup with [facility] with visiting nurse service and with followup about 2 weeks ago. The daughter last saw the patient in February of 2016 but has been in telephone contact with the patient on a daily to every other day basis. The patient used to be a heavy drinker for the past 40 years but stopped drinking about a year ago, as recommended by the patient's psychiatrist. As per daughter, the patient lives in a closed community and daughter has spoken to the patient's neighbor. The patient has not really been drinking for the past 1 year. Furthermore, about 2 weeks ago, the patient's daughter was informed by visiting nurse that the patient has not been taking his medication and has left the stove on with house filled with propane and the visiting nurse is no longer feeling safe visiting his house. And the patient's daughter was in the process of setting the patient up to a facility, possible assisted living versus a senior care facility. About 2 weeks ago, the patient's daughter was not able to reach the patient, and the patient's daughter has been trying to contact the patient's neighbors and relatives to find out and make sure the patient is okay and subsequently the patient was brought to the hospital earlier today by the patient's neighbor because he was found on the porch confused. The patient's daughter reported that when she saw him in February 2016, the patient was alert and able to have a conversation, oriented times three but currently the patient is only alert to person and is talking gibberish. Goals of care have also been discussed with the patient's daughter. Will complete a workup, which includes MRIs. Urine toxicology has been negative. Will get RPR, ESR, CRP and when the workup is complete, will consider for possible placement given home is no longer a safe environment for the patient, and he no longer can take care of himself. Patient and family services (PFS) has been consulted.
[2016-08-25 23:59] VITALS: BP 179/89
[2016-08-26] MEDS: LISINOPRIL 5 MG TAB PO SCH ×3 (02:01→21:46)
[2016-08-26] MEDS: QUEtiapine FUMARATE 100 MG TAB PO SCH ×2 (02:01→21:46)
[2016-08-26 03:59] VITALS: BP 124/60
[2016-08-26 05:56] LABS: MEAN CORPUSCULAR HEMOGLOBIN 32.1 pg (27.0-33.0); MEAN CORPUSCULAR HGB CONC 33.5 g/dl (32.0-36.5); MEAN CORPUSCULAR VOLUME 95.7 fl (80.0-96.0); RED CELL DISTRIBUTION WIDTH 12.5 % (11.5-14.5); WHITE BLOOD COUNT 3.6 K/mm3 (4.0-10.0)
[2016-08-26 06:08] LABS: ANION GAP 5 MEQ/L (8-16); BLOOD UREA NITROGEN 13 MG/DL (7-18); CALCIUM LEVEL 8.7 MG/DL (8.8-10.2); CARBON DIOXIDE LEVEL 27 MEQ/L (21-32); CHLORIDE LEVEL 109 MEQ/L (98-107); CREATININE FOR GFR 0.73 MG/DL (0.70-1.30); GLOMERULAR FILTRATION RATE > 60.0 (>42); GLUCOSE, FASTING 82 MG/DL (83-110); MAGNESIUM LEVEL 2.2 MG/DL (1.8-2.4); POTASSIUM SERUM 3.3 MEQ/L (3.5-5.1); SODIUM LEVEL 141 MEQ/L (136-145)
[2016-08-26 08:00] VITALS: BP 114/59
[2016-08-26] MEDS ORDERED: POTASSIUM CHLORIDE 10 MEQ SR TABLET PO ONE (08:00)
[2016-08-26] MEDS ORDERED: hydroCHLOROthiazide 25 MG TAB PO SCH (09:00)
[2016-08-26] MEDS: THIAMINE 100 MG TAB PO SCH (10:17)
[2016-08-26] MEDS: OMEGA-3 1050MG CAPSULE PO SCH (10:17)
[2016-08-26] MEDS: ASPIRIN 81 MG ENTERIC TAB PO SCH (10:17)
[2016-08-26] MEDS: MULTIVITAMINS/MINERALS THERAP 1 TAB PO SCH (10:17)
[2016-08-26] MEDS: FOLIC ACID 1 MG TAB PO SCH (10:17)
[2016-08-26] MEDS: SENOKOT S TAB PO SCH ×2 (10:18→21:45)
[2016-08-26] MEDS: VITAMIN B COMPLEX/VIT C CAP PO SCH (10:18)
[2016-08-26] MEDS: ATORVASTATIN 20 MG TAB PO SCH (10:18)
[2016-08-26] MEDS: ENOXAPARIN 40 MG/0.4 ML SYRINGE (J1650) SC SCH (10:19)
--- NOTE | 2016-08-26 10:32 | REP ---
MRI BRAIN WITHOUT CONTRAST: HISTORY: Altered mental status. COMPARISON: CT 08/25/2016. Areas of increased signal intensity on T2-weighted images are present in the periventricular and subcortical white matter. This represents small vessel ischemic disease. There is no intraparenchymal hemorrhage, infarct, mass or midline shift. The ventricular system and cortical sulci are dilated consistent with mild volume loss. There is no extracerebral collection. The sinuses are clear. IMPRESSION: 1. Small vessel ischemic disease. 2. Mild volume loss. Signed by Glenn Calvo MD 08/26/2016 10:50 A
[2016-08-26 12:00] VITALS: BP 110/55
--- NOTE | 2016-08-26 12:18 | IPNPDOC ---
Subjective Date Seen The patient was seen on 08/26/16. Subjective Chief Complaint/HPI Patient seen and examined at the bedside. He remains confused at this time, but denies any acute complaints. Objective Physical Examination General Exam: Positive: No Acute Distress ENT Exam: Positive: Atraumatic, Mucous membr. moist/pink Neck Exam: Negative: JVD Chest Exam: Positive: Clear to auscultation, Normal air movement, Negative: Rales, Rhonchi, Wheezing Heart Exam: Positive: Rate Normal, Regular Rhythm, Normal S1, Normal S2 Abdomen Exam: Positive: Soft, Negative: Tenderness Extremity Exam: Negative: Tenderness, Swelling Assessment /Plan Plan/VTE VTE Prophylaxis Ordered?: Yes Plan Alteration in mental status 2/2 Metabolic Encephalopathy vs Progression of Underlying Dementia CT Head, MRI Brain with no acute findings Lab work, vitals not suggestive of any underlying infectious or reversible etiology ESR, CRP, syphilis work up negative TSH, Ammonia levels within normal limits Toxicology screening negative We will cont to monitor the patient at this time PFS on board for the likely need for placement Hx of Dementia Cont Seroquel Hypertension, stable Cont lisinopril Dyslipidemia Continue statin Anxiety Ativan when necessary DVT Prophylaxis Lovenox SC Dispo--PFS on board as the patient will likely need placement for advancement of dementia VS, I&O, 24H, Fishbone Vital Signs/I&O Vital Signs Date Time Temp Pulse Resp B/P (MAP) Pulse Ox O2 Delivery O2 Flow Rate FiO2 08/26/16 10:18 114/59 08/26/16 08:00 97.2 58 20 98 Room Air I&O- Last 24 Hours up to 6 AM 08/26/16 05:59 Output Total 150 ml Balance -150 ml Laboratory Data 24H LABS Laboratory Tests 2 08/25/16 18:22: White Blood Count 5.3, Red Blood Count 4.02L, Hemoglobin 12.8L, Hematocrit 38.7L , Mean Corpuscular Volume 96.3H, Mean Corpuscular Hemoglobin 31.8, Mean Corpuscular Hemoglobin Concent 33.0, Red Cell Distribution Width 12.6, Platelet Count 319, Neutrophils (%) (Auto) 64.1, Lymphocytes (%) (Auto) 22.9L, Monocytes (%) (Auto) 6.8H, Eosinophils (%) (Auto) 2.8, Basophils (%) (Auto) 0.6, Neutrophils # (Auto) 3.4, Lymphocytes # (Auto) 1.4L, Monocytes # (Auto) 0.4, Eosinophils # (Auto) 0.2, Basophils # (Auto) 0.0, Large Unclassified Cells % 2.9 , Large Unclassified Cells # 0.2 08/25/16 18:49: Bedside Glucose (Misc Panel) 108 08/25/16 18:54: Anion Gap 7L, Glomerular Filtration Rate > 60.0, Osmolality 292, Lactic Acid Level 1.1, Calcium Level 9.0, Aspartate Amino Transf (AST/SGOT) 14L, Alanine Aminotransferase (ALT/SGPT) 16, Alkaline Phosphatase 74, Total Bilirubin 0.6, Direct Bilirubin 0.1, Ammonia 26, Total Protein 6.7, Albumin 4.0, Albumin/ Globulin Ratio 1.48, Thyroid Stimulating Hormone (TSH) 1.130, Salicylates Level < 1.7L, Acetaminophen Level < 2.0L, Ethyl Alcohol Level < 0.003 08/25/16 21:37: Urine Appearance HAZY, Urine Color YELLOW, Urine pH 6.0, Urine Specific [place] 1.026, Urine Protein 1+H, Urine Glucose (UA) NEGATIVE, Urine Ketones TRACEH, Urine Urobilinogen 4.0H, Urine Bilirubin NEGATIVE, Urine Leukocyte Esterase NEGATIVE, Urine Blood NEGATIVE, Urine Nitrite NEGATIVE, Urine WBC (Auto) 2, Urine RBC (Auto) 4H, Urine Hyaline Casts (Auto) 0, Urine Bacteria (Auto) NEGATIVE, Urine Squamous Epithelial Cells 0, Urine Mucus (Auto) SMALL, Urine Sperm (Auto) , Urine Amphetamines Screen NEGATIVE, Urine Benzodiazepines Screen NEGATIVE, Urine Opiates Screen NEGATIVE, Urine Methadone Screen NEGATIVE, Urine Barbiturates Screen NEGATIVE, Urine Phencyclidine Screen NEGATIVE, Urine Cocaine Metabolite Screen NEGATIVE, Urine Cannabinoids Screen NEGATIVE 08/26/16 05:19: Erythrocyte Sedimentation Rate 10, Anion Gap 5L, Glomerular Filtration Rate > 60.0, Blood Urea Nitrogen 13, Creatinine 0.73, Sodium Level 141, Potassium Level 3.3L, Chloride Level 109H, Carbon Dioxide Level 27, Calcium Level 8.7L, Magnesium Level 2.2, C-Reactive Protein, Quantitative < 0.30, Syphilis Serology NONREACTIVE CBC/BMP Laboratory Tests 08/25/16 18:22 Red Blood Count 4.02 L, Mean Corpuscular Volume 96.3 H, Mean Corpuscular Hemoglobin 31.8, Mean Corpuscular Hemoglobin Concent 33.0, Red Cell Distribution Width 12.6, Neutrophils (%) (Auto) 64.1, Lymphocytes (%) (Auto) 22.9 L, Monocytes (%) (Auto) 6.8 H, Eosinophils (%) (Auto) 2.8, Basophils (%) ( Auto) 0.6, Neutrophils # (Auto) 3.4, Lymphocytes # (Auto) 1.4 L, Monocytes # ( Auto) 0.4, Eosinophils # (Auto) 0.2, Basophils # (Auto) 0.0 08/25/16 18:54 08/26/16 05:19 Red Blood Count 3.36 L, Mean Corpuscular Volume 95.7, Mean Corpuscular Hemoglobin 32.1, Mean Corpuscular Hemoglobin Concent 33.5, Red Cell Distribution Width 12.5, Calcium Level 8.7 L Microbiology Microbiology 08/25/16 Urine Culture, Received Pending CAROLYN FLOWER MD Aug 26, 2016 12:18
[2016-08-26 16:00] VITALS: BP 135/68
[2016-08-26 20:00] VITALS: BP 134/80
--- NOTE | 2016-08-26 21:40 | ECGEPIP ---
Stationary ECG Study [facility] - ED Test Date: 2016-08-25 Pat Name: ANDREZ ORLANDO Department: Room: [place] [address] Gender: M Front End Web Designer: rudy : 1945 Requested By: CARLOTA Minor Order Number: [id number] Reading MD: Emmie Olson Measurements Intervals [place] Rate: 66 P: 73 NC: 158 QRS: 85 QRSD: 92 T: 72 QT: 379 QTc: 399 Interpretive Statements SINUS RHYTHM NSTTW ABNORMALITY NO PRIOR FOR COMPARISON Electronically Signed On 08-26-2016 21:40:03 EDT by Emmie Olson
[2016-08-27] VITALS (7 sets, daily range): BP systolic 116–151; BP diastolic 55–72
[2016-08-27] MEDS: LORazepam 2 MG/ML VIAL (J2060) IV PRN (01:46)
[2016-08-27 06:56] LABS: MEAN CORPUSCULAR HEMOGLOBIN 31.9 pg (27.0-33.0); MEAN CORPUSCULAR HGB CONC 33.3 g/dl (32.0-36.5); MEAN CORPUSCULAR VOLUME 95.7 fl (80.0-96.0); RED CELL DISTRIBUTION WIDTH 12.4 % (11.5-14.5); WHITE BLOOD COUNT 5.6 K/mm3 (4.0-10.0)
[2016-08-27 07:18] LABS: ANION GAP 5 MEQ/L (8-16); BLOOD UREA NITROGEN 12 MG/DL (7-18); CALCIUM LEVEL 8.6 MG/DL (8.8-10.2); CARBON DIOXIDE LEVEL 25 MEQ/L (21-32); CHLORIDE LEVEL 111 MEQ/L (98-107); CREATININE FOR GFR 0.88 MG/DL (0.70-1.30); GLOMERULAR FILTRATION RATE > 60.0 (>42); GLUCOSE, FASTING 89 MG/DL (83-110); MAGNESIUM LEVEL 2.4 MG/DL (1.8-2.4); POTASSIUM SERUM 4.2 MEQ/L (3.5-5.1); SODIUM LEVEL 141 MEQ/L (136-145)
[2016-08-27] MEDS: ENOXAPARIN 40 MG/0.4 ML SYRINGE (J1650) SC SCH (09:33)
[2016-08-27] MEDS: VITAMIN B COMPLEX/VIT C CAP PO SCH (09:34)
[2016-08-27] MEDS: MULTIVITAMINS/MINERALS THERAP 1 TAB PO SCH (09:34)
[2016-08-27] MEDS: FOLIC ACID 1 MG TAB PO SCH (09:34)
[2016-08-27] MEDS: ATORVASTATIN 20 MG TAB PO SCH (09:34)
[2016-08-27] MEDS: LISINOPRIL 5 MG TAB PO SCH ×2 (09:34→21:24)
[2016-08-27] MEDS: OMEGA-3 1050MG CAPSULE PO SCH (09:34)
[2016-08-27] MEDS: ASPIRIN 81 MG ENTERIC TAB PO SCH (09:35)
[2016-08-27] MEDS: THIAMINE 100 MG TAB PO SCH (09:35)
[2016-08-27] MEDS: SENOKOT S TAB PO SCH ×2 (09:35→21:23)
[2016-08-27] MEDS ORDERED: SLF 3 ML SYR IV PRN ×2 (11:15→19:00)
--- NOTE | 2016-08-27 11:19 | IPNPDOC ---
Subjective Date Seen The patient was seen on 08/27/16. Subjective Chief Complaint/HPI Patient seen and examined at the bedside. Denies any acute complaints at this time. Objective Physical Examination General Exam: Positive: No Acute Distress, Other (oriented only to person, but not place, time, or situation) ENT Exam: Positive: Atraumatic, Mucous membr. moist/pink Neck Exam: Negative: JVD Chest Exam: Positive: Clear to auscultation, Normal air movement, Negative: Rales, Rhonchi, Wheezing Heart Exam: Positive: Rate Normal, Regular Rhythm, Normal S1, Normal S2 Abdomen Exam: Positive: Soft, Negative: Tenderness Extremity Exam: Negative: Tenderness, Swelling Assessment /Plan Plan/VTE VTE Prophylaxis Ordered?: Yes Plan Alteration in mental status 2/2 Metabolic Encephalopathy vs Progression of Underlying Dementia CT Head, MRI Brain with no acute findings Lab work, vitals not suggestive of any underlying infectious or reversible etiology ESR, CRP, syphilis work up negative TSH, Ammonia levels within normal limits Toxicology screening negative We will cont to monitor the patient at this time PFS on board for the likely need for placement Hx of Dementia Cont Seroquel Hypertension, stable Cont lisinopril Dyslipidemia Continue statin Anxiety Ativan when necessary DVT Prophylaxis Lovenox SC Dispo--PFS on board as the patient will likely need placement for advancement of dementia VS, I&O, 24H, Fishbone Vital Signs/I&O Vital Signs Date Time Temp Pulse Resp B/P (MAP) Pulse Ox O2 Delivery O2 Flow Rate FiO2 08/27/16 09:34 151/67 08/27/16 08:27 Room Air 08/27/16 08:27 97.9 61 14 98 I&O- Last 24 Hours up to 6 AM 08/27/16 06:00 Intake Total 1320 ml Output Total 375 ml Balance 945 ml Laboratory Data 24H LABS Laboratory Tests 2 08/27/16 06:43: Anion Gap 5L, Glomerular Filtration Rate > 60.0, Blood Urea Nitrogen 12, Creatinine 0.88, Sodium Level 141, Potassium Level 4.2#, Chloride Level 111H, Carbon Dioxide Level 25, Calcium Level 8.6L, Magnesium Level 2.4 CBC/BMP Laboratory Tests 08/27/16 06:43 Red Blood Count 3.81 L, Mean Corpuscular Volume 95.7, Mean Corpuscular Hemoglobin 31.9, Mean Corpuscular Hemoglobin Concent 33.3, Red Cell Distribution Width 12.4, Calcium Level 8.6 L Microbiology Microbiology 08/25/16 Urine Culture - Final, Complete CAROLYN FLOWER MD Aug 27, 2016 11:19
[2016-08-27] MEDS ORDERED: SLF 3 ML SYR IV SCH (14:00)
[2016-08-27] MEDS: QUEtiapine FUMARATE 100 MG TAB PO SCH (21:23)
[2016-08-27] MEDS: SLF 3 ML SYR IV SCH (22:00)
[2016-08-28 00:06] VITALS: BP 114/65
[2016-08-28 04:14] VITALS: BP 150/71
[2016-08-28] MEDS: SLF 3 ML SYR IV SCH ×3 (04:41→21:47)
[2016-08-28 06:49] LABS: MEAN CORPUSCULAR HEMOGLOBIN 32.6 pg (27.0-33.0); MEAN CORPUSCULAR HGB CONC 34.1 g/dl (32.0-36.5); MEAN CORPUSCULAR VOLUME 95.4 fl (80.0-96.0); RED CELL DISTRIBUTION WIDTH 12.4 % (11.5-14.5); WHITE BLOOD COUNT 4.5 K/mm3 (4.0-10.0)
[2016-08-28 07:16] LABS: ANION GAP 6 MEQ/L (8-16); BLOOD UREA NITROGEN 19 MG/DL (7-18); CALCIUM LEVEL 8.9 MG/DL (8.8-10.2); CARBON DIOXIDE LEVEL 28 MEQ/L (21-32); CHLORIDE LEVEL 105 MEQ/L (98-107); GLOMERULAR FILTRATION RATE > 60.0 (>42); GLUCOSE, FASTING 93 MG/DL (83-110); MAGNESIUM LEVEL 2.2 MG/DL (1.8-2.4); POTASSIUM SERUM 4.2 MEQ/L (3.5-5.1); SODIUM LEVEL 139 MEQ/L (136-145)
[2016-08-28 08:00] VITALS: BP 142/74
[2016-08-28] MEDS: OMEGA-3 1050MG CAPSULE PO SCH (09:46)
[2016-08-28] MEDS: SENOKOT S TAB PO SCH ×2 (09:46→21:46)
[2016-08-28] MEDS: VITAMIN B COMPLEX/VIT C CAP PO SCH (09:46)
[2016-08-28] MEDS: FOLIC ACID 1 MG TAB PO SCH (09:46)
[2016-08-28] MEDS: THIAMINE 100 MG TAB PO SCH (09:47)
[2016-08-28] MEDS: MULTIVITAMINS/MINERALS THERAP 1 TAB PO SCH (09:47)
[2016-08-28] MEDS: ASPIRIN 81 MG ENTERIC TAB PO SCH (09:47)
[2016-08-28] MEDS: ATORVASTATIN 20 MG TAB PO SCH (09:47)
[2016-08-28] MEDS: ENOXAPARIN 40 MG/0.4 ML SYRINGE (J1650) SC SCH (09:47)
[2016-08-28] MEDS: LISINOPRIL 5 MG TAB PO SCH ×2 (09:50→21:47)
--- NOTE | 2016-08-28 11:16 | IPNPDOC ---
Subjective Date Seen The patient was seen on 08/28/16. Subjective Chief Complaint/HPI Patient seen and examined at the bedside. Remains confused but pleasant. Denies any acute overnight complaints. Objective Physical Examination General Exam: Positive: No Acute Distress, Other (oriented only to person, but not place, time, or situation) ENT Exam: Positive: Atraumatic, Mucous membr. moist/pink Neck Exam: Negative: JVD Chest Exam: Positive: Clear to auscultation, Normal air movement, Negative: Rales, Rhonchi, Wheezing Heart Exam: Positive: Rate Normal, Regular Rhythm, Normal S1, Normal S2 Abdomen Exam: Positive: Soft, Negative: Tenderness Extremity Exam: Negative: Tenderness, Swelling Assessment /Plan Plan/VTE VTE Prophylaxis Ordered?: Yes Plan Alteration in mental status 2/2 Metabolic Encephalopathy vs Progression of Underlying Dementia CT Head, MRI Brain with no acute findings Lab work, vitals not suggestive of any underlying infectious or reversible etiology ESR, CRP, syphilis work up negative TSH, Ammonia levels within normal limits Toxicology screening negative We will cont to monitor the patient at this time I discussed the above findings with the patient's daughter at the bedside on PFS on board for the likely need for placement Hx of Dementia Cont Seroquel Hypertension, stable Cont lisinopril Dyslipidemia Continue statin Anxiety Ativan when necessary DVT Prophylaxis Lovenox SC Dispo--PFS on board as the patient will likely need placement for advancement of dementia VS, I&O, 24H, Fishbone Vital Signs/I&O Vital Signs Date Time Temp Pulse Resp B/P (MAP) Pulse Ox O2 Delivery O2 Flow Rate FiO2 08/28/16 09:50 112/58 08/28/16 08:00 98.1 68 18 95 Room Air I&O- Last 24 Hours up to 6 AM 08/28/16 06:00 Intake Total 660 ml Output Total 200 ml Balance 460 ml Laboratory Data 24H LABS Laboratory Tests 2 08/28/16 05:40: Anion Gap 6L, Glomerular Filtration Rate > 60.0, Blood Urea Nitrogen 19#H, Creatinine 0.90, Sodium Level 139, Potassium Level 4.2, Chloride Level 105, Carbon Dioxide Level 28, Calcium Level 8.9, Magnesium Level 2.2 CBC/BMP Laboratory Tests 08/28/16 05:40 Red Blood Count 3.62 L, Mean Corpuscular Volume 95.4, Mean Corpuscular Hemoglobin 32.6, Mean Corpuscular Hemoglobin Concent 34.1, Red Cell Distribution Width 12.4, Calcium Level 8.9 Microbiology Microbiology 08/25/16 Urine Culture - Final, Complete CAROLYN FLOWER MD Aug 28, 2016 11:16
[2016-08-28 12:00] VITALS: BP 135/62
[2016-08-28 15:45] VITALS: BP 142/62
[2016-08-28] MEDS: QUEtiapine FUMARATE 100 MG TAB PO SCH (21:46)
[2016-08-28 22:00] VITALS: BP 109/60
[2016-08-29 05:24] LABS: MEAN CORPUSCULAR HEMOGLOBIN 32.7 pg (27.0-33.0); MEAN CORPUSCULAR HGB CONC 34.3 g/dl (32.0-36.5); MEAN CORPUSCULAR VOLUME 95.3 fl (80.0-96.0); RED CELL DISTRIBUTION WIDTH 12.5 % (11.5-14.5); WHITE BLOOD COUNT 4.7 K/mm3 (4.0-10.0)
[2016-08-29 05:35] LABS: ANION GAP 7 MEQ/L (8-16); BLOOD UREA NITROGEN 22 MG/DL (7-18); CALCIUM LEVEL 8.7 MG/DL (8.8-10.2); CARBON DIOXIDE LEVEL 28 MEQ/L (21-32); CHLORIDE LEVEL 106 MEQ/L (98-107); CREATININE FOR GFR 0.76 MG/DL (0.70-1.30); GLOMERULAR FILTRATION RATE > 60.0 (>42); GLUCOSE, FASTING 85 MG/DL (83-110); MAGNESIUM LEVEL 2.3 MG/DL (1.8-2.4); POTASSIUM SERUM 4.2 MEQ/L (3.5-5.1); SODIUM LEVEL 141 MEQ/L (136-145)
[2016-08-29] MEDS: SLF 3 ML SYR IV SCH ×3 (06:00→21:43)
--- NOTE | 2016-08-29 10:19 | IPNPDOC ---
Subjective Date Seen The patient was seen on 08/29/16. Subjective Chief Complaint/HPI Patient seen and examined at the bedside. Denies any acute overnight complaints. Objective Physical Examination General Exam: Positive: No Acute Distress, Other (oriented only to person, but not place, time, or situation) ENT Exam: Positive: Atraumatic, Mucous membr. moist/pink Neck Exam: Negative: JVD Chest Exam: Positive: Clear to auscultation, Normal air movement, Negative: Rales, Rhonchi, Wheezing Heart Exam: Positive: Rate Normal, Regular Rhythm, Normal S1, Normal S2 Abdomen Exam: Positive: Soft, Negative: Tenderness Extremity Exam: Negative: Tenderness, Swelling Assessment /Plan Plan/VTE VTE Prophylaxis Ordered?: Yes Plan Alteration in mental status 2/2 Metabolic Encephalopathy vs Progression of Underlying Dementia CT Head, MRI Brain with no acute findings Lab work, vitals not suggestive of any underlying infectious or reversible etiology ESR, CRP, syphilis work up negative TSH, Ammonia levels within normal limits Toxicology screening negative We will cont to monitor the patient at this time I discussed the above findings with the patient's daughter at the bedside on PFS on board for the likely need for placement Hx of Dementia Cont Seroquel Hypertension, stable Cont lisinopril Dyslipidemia Continue statin Anxiety Ativan when necessary DVT Prophylaxis Lovenox SC Dispo--PFS on board as the patient will likely need placement for advancement of dementia VS, I&O, 24H, Fishbone Vital Signs/I&O Vital Signs Date Time Temp Pulse Resp B/P (MAP) Pulse Ox O2 Delivery O2 Flow Rate FiO2 08/28/16 22:00 98.1 72 18 109/60 (76) 99 Room Air I&O- Last 24 Hours up to 6 AM 08/29/16 06:00 Intake Total 1080 ml Balance 1080 ml Laboratory Data 24H LABS Laboratory Tests 2 08/29/16 05:10: Anion Gap 7L, Glomerular Filtration Rate > 60.0, Blood Urea Nitrogen 22H, Creatinine 0.76, Sodium Level 141, Potassium Level 4.2, Chloride Level 106, Carbon Dioxide Level 28, Calcium Level 8.7L, Magnesium Level 2.3 CBC/BMP Laboratory Tests 08/29/16 05:10 Red Blood Count 3.76 L, Mean Corpuscular Volume 95.3, Mean Corpuscular Hemoglobin 32.7, Mean Corpuscular Hemoglobin Concent 34.3, Red Cell Distribution Width 12.5, Calcium Level 8.7 L Microbiology Microbiology 08/25/16 Urine Culture - Final, Complete CAROLYN FLOWER MD Aug 29, 2016 10:19
[2016-08-29] MEDS: THIAMINE 100 MG TAB PO SCH (10:40)
[2016-08-29] MEDS: ATORVASTATIN 20 MG TAB PO SCH (10:40)
[2016-08-29] MEDS: SENOKOT S TAB PO SCH ×2 (10:40→21:40)
[2016-08-29] MEDS: FOLIC ACID 1 MG TAB PO SCH (10:41)
[2016-08-29] MEDS: MULTIVITAMINS/MINERALS THERAP 1 TAB PO SCH (10:41)
[2016-08-29] MEDS: VITAMIN B COMPLEX/VIT C CAP PO SCH (10:41)
[2016-08-29] MEDS: ASPIRIN 81 MG ENTERIC TAB PO SCH (10:41)
[2016-08-29] MEDS: OMEGA-3 1050MG CAPSULE PO SCH (10:42)
[2016-08-29] MEDS: ENOXAPARIN 40 MG/0.4 ML SYRINGE (J1650) SC SCH (10:42)
[2016-08-29] MEDS: LISINOPRIL 5 MG TAB PO SCH (11:49)
[2016-08-29 14:00] VITALS: BP 92/40
[2016-08-29 14:15] VITALS: BP 92/40
[2016-08-29 14:46] VITALS: BP 114/63
[2016-08-29] MEDS ORDERED: NS 500 ML IV ONE (15:00)
[2016-08-29 16:10] VITALS: BP 118/78
[2016-08-29] MEDS: QUEtiapine FUMARATE 100 MG TAB PO SCH (21:40)
[2016-08-29 22:00] VITALS: BP 124/65
[2016-08-30] MEDS: ACETAMINOPHEN TAB 650MG DOSE (2X325MG) PO PRN ×2 (00:26→21:19)
[2016-08-30 06:00] VITALS: BP 104/55
[2016-08-30 06:01] LABS: MEAN CORPUSCULAR HEMOGLOBIN 32.6 pg (27.0-33.0); MEAN CORPUSCULAR HGB CONC 33.9 g/dl (32.0-36.5); RED CELL DISTRIBUTION WIDTH 12.7 % (11.5-14.5); WHITE BLOOD COUNT 9.2 K/mm3 (4.0-10.0)
[2016-08-30] MEDS: SLF 3 ML SYR IV SCH ×3 (06:05→21:20)
[2016-08-30 06:18] LABS: ANION GAP 7 MEQ/L (8-16); BLOOD UREA NITROGEN 31 MG/DL (7-18); CALCIUM LEVEL 9.2 MG/DL (8.8-10.2); CARBON DIOXIDE LEVEL 27 MEQ/L (21-32); CHLORIDE LEVEL 107 MEQ/L (98-107); CREATININE FOR GFR 1.21 MG/DL (0.70-1.30); GLUCOSE, FASTING 108 MG/DL (83-110); MAGNESIUM LEVEL 2.3 MG/DL (1.8-2.4); POTASSIUM SERUM 4.3 MEQ/L (3.5-5.1); SODIUM LEVEL 141 MEQ/L (136-145)
[2016-08-30 06:21] LABS: GLOMERULAR FILTRATION RATE > 60.0 (>42)
[2016-08-30] MEDS ORDERED: NS 750 ML IV SCH (07:30)
[2016-08-30] MEDS: ENOXAPARIN 40 MG/0.4 ML SYRINGE (J1650) SC SCH (09:38)
[2016-08-30] MEDS: ATORVASTATIN 20 MG TAB PO SCH (09:38)
[2016-08-30] MEDS: MULTIVITAMINS/MINERALS THERAP 1 TAB PO SCH (09:38)
[2016-08-30] MEDS: SENOKOT S TAB PO SCH ×2 (09:38→21:19)
[2016-08-30] MEDS: ASPIRIN 81 MG ENTERIC TAB PO SCH (09:38)
[2016-08-30] MEDS: FOLIC ACID 1 MG TAB PO SCH (09:38)
[2016-08-30] MEDS: OMEGA-3 1050MG CAPSULE PO SCH (09:39)
[2016-08-30] MEDS: THIAMINE 100 MG TAB PO SCH (09:39)
[2016-08-30] MEDS: VITAMIN B COMPLEX/VIT C CAP PO SCH (10:23)
--- NOTE | 2016-08-30 11:00 | IPNPDOC ---
Subjective Date Seen The patient was seen on 08/30/16. Subjective Chief Complaint/HPI Patient seen and examined at the bedside this morning. There was a rapid assessment team called on the patient yesterday afternoon/evening as the nursing staff was unable to arouse the patient. However, upon my arrival the patient states that he was "just sleeping." He denies any acute complaints at this time and states that he is feeling well overall. Objective Physical Examination General Exam: Positive: No Acute Distress, Other (oriented only to person, but not place, time, or situation) ENT Exam: Positive: Atraumatic, Mucous membr. moist/pink Neck Exam: Negative: JVD Chest Exam: Positive: Clear to auscultation, Normal air movement, Negative: Rales, Rhonchi, Wheezing Heart Exam: Positive: Rate Normal, Regular Rhythm, Normal S1, Normal S2 Abdomen Exam: Positive: Soft, Negative: Tenderness Extremity Exam: Negative: Tenderness, Swelling Assessment /Plan Plan/VTE VTE Prophylaxis Ordered?: Yes Plan Alteration in mental status 2/2 Metabolic Encephalopathy vs Progression of Underlying Dementia CT Head, MRI Brain with no acute findings Lab work, vitals not suggestive of any underlying infectious or reversible etiology ESR, CRP, syphilis work up negative TSH, Ammonia levels within normal limits Toxicology screening negative We will cont to monitor the patient at this time I discussed the above findings with the patient's daughter at the bedside on PFS on board for the likely need for placement Hx of Dementia Cont Seroquel Hypertension, stable Dyslipidemia Continue statin Anxiety Ativan when necessary DVT Prophylaxis Lovenox SC Dispo--PFS on board as the patient will likely need placement for advancement of dementia VS, I&O, 24H, [place] Vital Signs/I&O Vital Signs Date Time Temp Pulse Resp B/P (MAP) Pulse Ox O2 Delivery O2 Flow Rate FiO2 08/30/16 06:00 98.8 87 20 104/55 (71) 92 Room Air I&O- Last 24 Hours up to 6 AM 08/30/16 05:59 Intake Total 740 ml Output Total 0 ml Balance 740 ml Laboratory Data 24H LABS Laboratory Tests 2 08/29/16 14:47: Bedside Glucose (Misc Panel) 139H 08/30/16 05:46: Anion Gap 7L, Glomerular Filtration Rate > 60.0, Blood Urea Nitrogen 31H, Creatinine 1.21#, Sodium Level 141, Potassium Level 4.3, Chloride Level 107, Carbon Dioxide Level 27, Calcium Level 9.2, Magnesium Level 2.3 CBC/BMP Laboratory Tests 08/30/16 05:46 Red Blood Count 3.59 L, Mean Corpuscular Volume 96.0, Mean Corpuscular Hemoglobin 32.6, Mean Corpuscular Hemoglobin Concent 33.9, Red Cell Distribution Width 12.7, Calcium Level 9.2 Microbiology Microbiology 08/25/16 Urine Culture - Final, Complete CAROLYN FLOWER MD Aug 30, 2016 11:00
[2016-08-30 14:00] VITALS: BP 144/64
[2016-08-30] MEDS: LORazepam 2 MG/ML VIAL (J2060) IV PRN (18:49)
[2016-08-30] MEDS: QUEtiapine FUMARATE 100 MG TAB PO SCH (21:19)
[2016-08-30 22:00] VITALS: BP 149/77
[2016-08-31 06:00] VITALS: BP 167/74
[2016-08-31 06:21] LABS: MEAN CORPUSCULAR HEMOGLOBIN 31.7 pg (27.0-33.0); MEAN CORPUSCULAR HGB CONC 32.7 g/dl (32.0-36.5); RED CELL DISTRIBUTION WIDTH 12.3 % (11.5-14.5); WHITE BLOOD COUNT 10.8 K/mm3 (4.0-10.0)
[2016-08-31 06:32] LABS: ANION GAP 7 MEQ/L (8-16); BLOOD UREA NITROGEN 15 MG/DL (7-18); CALCIUM LEVEL 8.9 MG/DL (8.8-10.2); CARBON DIOXIDE LEVEL 25 MEQ/L (21-32); CHLORIDE LEVEL 106 MEQ/L (98-107); CREATININE FOR GFR 0.67 MG/DL (0.70-1.30); GLOMERULAR FILTRATION RATE > 60.0 (>42); GLUCOSE, FASTING 119 MG/DL (83-110); MAGNESIUM LEVEL 2.2 MG/DL (1.8-2.4); POTASSIUM SERUM 4.2 MEQ/L (3.5-5.1); SODIUM LEVEL 138 MEQ/L (136-145)
[2016-08-31] MEDS: SLF 3 ML SYR IV SCH ×3 (06:42→21:06)
[2016-08-31] MEDS: VITAMIN B COMPLEX/VIT C CAP PO SCH (09:00)
[2016-08-31] MEDS: FOLIC ACID 1 MG TAB PO SCH (09:00)
[2016-08-31] MEDS: SENOKOT S TAB PO SCH ×2 (09:00→21:05)
[2016-08-31] MEDS: ATORVASTATIN 20 MG TAB PO SCH (09:42)
[2016-08-31] MEDS: ASPIRIN 81 MG ENTERIC TAB PO SCH (09:42)
[2016-08-31] MEDS: OMEGA-3 1050MG CAPSULE PO SCH (09:50)
[2016-08-31] MEDS: MULTIVITAMINS/MINERALS THERAP 1 TAB PO SCH (09:50)
[2016-08-31] MEDS: ENOXAPARIN 40 MG/0.4 ML SYRINGE (J1650) SC SCH (09:51)
[2016-08-31] MEDS: THIAMINE 100 MG TAB PO SCH (09:51)
--- NOTE | 2016-08-31 13:43 | IPNPDOC ---
Subjective Date Seen The patient was seen on 08/31/16. Subjective Chief Complaint/HPI Patient seen and examined at the bedside. Denies any acute complaints at this time. No overnight events noted as per nursing staff. Objective Physical Examination General Exam: Positive: No Acute Distress, Other (oriented only to person, but not place, time, or situation) ENT Exam: Positive: Atraumatic, Mucous membr. moist/pink Neck Exam: Negative: JVD Chest Exam: Positive: Clear to auscultation, Normal air movement, Negative: Rales, Rhonchi, Wheezing Heart Exam: Positive: Rate Normal, Regular Rhythm, Normal S1, Normal S2 Abdomen Exam: Positive: Soft, Negative: Tenderness Extremity Exam: Negative: Tenderness, Swelling Assessment /Plan Plan/VTE VTE Prophylaxis Ordered?: Yes Plan Alteration in mental status 2/2 Metabolic Encephalopathy vs Progression of Underlying Dementia CT Head, MRI Brain with no acute findings Lab work, vitals not suggestive of any underlying infectious or reversible etiology ESR, CRP, syphilis work up negative TSH, Ammonia levels within normal limits Toxicology screening negative We will cont to monitor the patient at this time I discussed the above findings with the patient's daughter at the bedside on PFS on board for the likely need for placement Hx of Dementia Cont Seroquel Hypertension, stable Dyslipidemia Continue statin Anxiety Ativan when necessary DVT Prophylaxis Lovenox SC Dispo--PFS on board as the patient will likely need placement for advancement of dementia. Will transfer the patient to [facility] status. VS, I&O, 24H, [facility] Vital Signs/I&O Vital Signs Date Time Temp Pulse Resp B/P (MAP) Pulse Ox O2 Delivery O2 Flow Rate FiO2 08/31/16 06:00 97.0 85 19 167/74 (105) 97 Room Air I&O- Last 24 Hours up to 6 AM 08/31/16 06:00 Intake Total 741 ml Output Total 0 ml Balance 741 ml Laboratory Data 24H LABS Laboratory Tests 2 08/31/16 05:54: Anion Gap 7L, Glomerular Filtration Rate > 60.0, Blood Urea Nitrogen 15#, Creatinine 0.67L, Sodium Level 138, Potassium Level 4.2, Chloride Level 106, Carbon Dioxide Level 25, Calcium Level 8.9, Magnesium Level 2.2 CBC/BMP Laboratory Tests 08/31/16 05:54 Red Blood Count 3.78 L, Mean Corpuscular Volume 97.0 H, Mean Corpuscular Hemoglobin 31.7, Mean Corpuscular Hemoglobin Concent 32.7, Red Cell Distribution Width 12.3, Calcium Level 8.9 Microbiology Microbiology 08/25/16 Urine Culture - Final, Complete CAROLYN FLOWER MD Aug 31, 2016 13:43
[2016-08-31 14:00] VITALS: BP 121/67
[2016-08-31] MEDS: QUEtiapine FUMARATE 100 MG TAB PO SCH (21:05)
[2016-08-31] MEDS: ACETAMINOPHEN TAB 650MG DOSE (2X325MG) PO PRN (21:05)
[2016-09-01] MEDS ORDERED: ONDANSETRON 4 MG TAB (S0181) PO PRN (01:45)
[2016-09-01 06:00] VITALS: BP 154/71
[2016-09-01 06:05] LABS: MEAN CORPUSCULAR HEMOGLOBIN 32.9 pg (27.0-33.0); MEAN CORPUSCULAR HGB CONC 34.9 g/dl (32.0-36.5); MEAN CORPUSCULAR VOLUME 94.1 fl (80.0-96.0); RED CELL DISTRIBUTION WIDTH 12.5 % (11.5-14.5); WHITE BLOOD COUNT 7.1 K/mm3 (4.0-10.0)
[2016-09-01 06:18] LABS: ANION GAP 4 MEQ/L (8-16); BLOOD UREA NITROGEN 19 MG/DL (7-18); CALCIUM LEVEL 8.8 MG/DL (8.8-10.2); CARBON DIOXIDE LEVEL 30 MEQ/L (21-32); CHLORIDE LEVEL 107 MEQ/L (98-107); CREATININE FOR GFR 0.62 MG/DL (0.70-1.30); GLOMERULAR FILTRATION RATE > 60.0 (>42); GLUCOSE, FASTING 93 MG/DL (83-110); MAGNESIUM LEVEL 2.3 MG/DL (1.8-2.4); POTASSIUM SERUM 3.9 MEQ/L (3.5-5.1); SODIUM LEVEL 141 MEQ/L (136-145)
[2016-09-01] MEDS: ATORVASTATIN 20 MG TAB PO SCH (11:00)
[2016-09-01] MEDS: MULTIVITAMINS/MINERALS THERAP 1 TAB PO SCH (11:00)
[2016-09-01] MEDS: ASPIRIN 81 MG ENTERIC TAB PO SCH (11:00)
[2016-09-01] MEDS: FOLIC ACID 1 MG TAB PO SCH (11:01)
[2016-09-01] MEDS: SENOKOT S TAB PO SCH ×2 (11:01→20:50)
[2016-09-01] MEDS: THIAMINE 100 MG TAB PO SCH (11:01)
[2016-09-01] MEDS: VITAMIN B COMPLEX/VIT C CAP PO SCH (11:01)
[2016-09-01] MEDS: ENOXAPARIN 40 MG/0.4 ML SYRINGE (J1650) SC SCH (11:02)
[2016-09-01] MEDS: OMEGA-3 1050MG CAPSULE PO SCH (11:02)
[2016-09-01] MEDS: QUEtiapine FUMARATE 100 MG TAB PO SCH (20:50)
[2016-09-02 06:00] VITALS: BP 113/59
[2016-09-02] MEDS: FOLIC ACID 1 MG TAB PO SCH (09:52)
[2016-09-02] MEDS: SENOKOT S TAB PO SCH ×2 (09:52→20:14)
[2016-09-02] MEDS: MULTIVITAMINS/MINERALS THERAP 1 TAB PO SCH (09:52)
[2016-09-02] MEDS: ATORVASTATIN 20 MG TAB PO SCH (09:52)
[2016-09-02] MEDS: VITAMIN B COMPLEX/VIT C CAP PO SCH (09:52)
[2016-09-02] MEDS: ASPIRIN 81 MG ENTERIC TAB PO SCH (09:52)
[2016-09-02] MEDS: OMEGA-3 1050MG CAPSULE PO SCH (09:52)
[2016-09-02] MEDS: ENOXAPARIN 40 MG/0.4 ML SYRINGE (J1650) SC SCH (09:53)
[2016-09-02] MEDS: THIAMINE 100 MG TAB PO SCH (09:56)
[2016-09-02] MEDS: QUEtiapine FUMARATE 100 MG TAB PO SCH (20:15)
[2016-09-03 06:00] VITALS: BP 156/6
[2016-09-03] MEDS: MULTIVITAMINS/MINERALS THERAP 1 TAB PO SCH (08:20)
[2016-09-03] MEDS: VITAMIN B COMPLEX/VIT C CAP PO SCH (08:20)
[2016-09-03] MEDS: ENOXAPARIN 40 MG/0.4 ML SYRINGE (J1650) SC SCH (08:20)
[2016-09-03] MEDS: ASPIRIN 81 MG ENTERIC TAB PO SCH (08:20)
[2016-09-03] MEDS: ATORVASTATIN 20 MG TAB PO SCH (08:20)
[2016-09-03] MEDS: SENOKOT S TAB PO SCH ×2 (08:20→21:00)
[2016-09-03] MEDS: FOLIC ACID 1 MG TAB PO SCH (08:21)
[2016-09-03] MEDS: OMEGA-3 1050MG CAPSULE PO SCH (08:21)
[2016-09-03] MEDS: THIAMINE 100 MG TAB PO SCH (08:21)
[2016-09-03] MEDS: LORazepam 1 MG TAB PO PRN (16:00)
[2016-09-03] MEDS ORDERED: risperiDONE 1 MG TAB PO SCH ×2 (17:45→21:00)
[2016-09-03] MEDS ORDERED: risperiDONE 0.5 MG TAB PO SCH (17:46)
[2016-09-03] MEDS: risperiDONE 0.5 MG TAB PO SCH (17:52)
[2016-09-03] MEDS: QUEtiapine FUMARATE 100 MG TAB PO SCH (21:00)
[2016-09-04] MEDS: LORazepam 1 MG TAB PO PRN (00:36)
[2016-09-04 06:00] VITALS: BP 150/67
[2016-09-04] MEDS: ASPIRIN 81 MG ENTERIC TAB PO SCH (13:15)
[2016-09-04] MEDS: ATORVASTATIN 20 MG TAB PO SCH (13:15)
[2016-09-04] MEDS: OMEGA-3 1050MG CAPSULE PO SCH (13:15)
[2016-09-04] MEDS: FOLIC ACID 1 MG TAB PO SCH (13:15)
[2016-09-04] MEDS: ENOXAPARIN 40 MG/0.4 ML SYRINGE (J1650) SC SCH (13:15)
[2016-09-04] MEDS: SENOKOT S TAB PO SCH ×2 (13:15→20:18)
[2016-09-04] MEDS: VITAMIN B COMPLEX/VIT C CAP PO SCH (13:15)
[2016-09-04] MEDS: THIAMINE 100 MG TAB PO SCH (13:15)
[2016-09-04] MEDS: MULTIVITAMINS/MINERALS THERAP 1 TAB PO SCH (13:15)
[2016-09-04] MEDS: QUEtiapine FUMARATE 100 MG TAB PO SCH (20:18)
[2016-09-04] MEDS: risperiDONE 0.5 MG TAB PO SCH (20:18)
[2016-09-05 05:32] VITALS: BP 161/77
[2016-09-05] MEDS: SENOKOT S TAB PO SCH ×2 (10:21→21:00)
[2016-09-05] MEDS: ASPIRIN 81 MG ENTERIC TAB PO SCH (10:21)
[2016-09-05] MEDS: ATORVASTATIN 20 MG TAB PO SCH (10:21)
[2016-09-05] MEDS: MULTIVITAMINS/MINERALS THERAP 1 TAB PO SCH (10:21)
[2016-09-05] MEDS: THIAMINE 100 MG TAB PO SCH (10:21)
[2016-09-05] MEDS: OMEGA-3 1050MG CAPSULE PO SCH (10:21)
[2016-09-05] MEDS: VITAMIN B COMPLEX/VIT C CAP PO SCH (10:21)
[2016-09-05] MEDS: FOLIC ACID 1 MG TAB PO SCH (10:21)
[2016-09-05] MEDS: ENOXAPARIN 40 MG/0.4 ML SYRINGE (J1650) SC SCH (10:22)
--- NOTE | 2016-09-05 15:11 | IPNPDOC ---
Text Note Date of Service The patient was seen on 09/05/16. NOTE Subjective: Patient is a 70 year old male with a PMHx of HTN, DLP and Anxiety who presented to the ER with confusion. He had a workup for reversible causes of encephalopathy that has come back negative. He is in the process of having placement established. Patient was seen and examined at the bedside. Objective: Vitals (See below) General: Lying in bed, no acute distress, comfortable, AAOx1 (person only) HEENT: NC, AT CVS: RRR, +S1S2 Lungs: Fair air entry b/l, -w/r/r Abdomen: Soft, ND, NT, +BSx4 Extremities: - Edema, - Calf tenderness Assessment and plan: 1. Confusion - likely 2/2 progression of underlying dementia, less likely 2/ acute metabolic encephalopathy - Pleasant upon conversation; is only oriented to person - Imaging negative - TSH / Ammonia / Toxicology / Syphilis / ESR / CRP negative - No evidence of infection - PFS on board for placement; family aware 2. Dementia - c/w Seroquel 3. HTN - BP well controlled 4. DLP 5. Anxiety 6. DVT prophylaxis - c/w Lovenox Disposition: - PFS to establish placement VS,Fishbone, I+O VS, Fishbone, I+O Vital Signs Date Time Temp Pulse Resp B/P (MAP) Pulse Ox O2 Delivery O2 Flow Rate FiO2 09/05/16 05:32 97.2 83 18 161/77 (105) 100 Room Air I&O- Last 24 Hours up to 6 AM 09/05/16 06:00 Intake Total 720 ml Output Total 0 ml Balance 720 ml MAXIMILIAN PIERRE MD Sep 05, 2016 15:11
[2016-09-05] MEDS: QUEtiapine FUMARATE 100 MG TAB PO SCH (21:00)
[2016-09-05] MEDS: risperiDONE 0.5 MG TAB PO SCH (21:00)
[2016-09-06] MEDS: LORazepam 1 MG TAB PO PRN (00:23)
[2016-09-06 06:00] VITALS: BP 150/74
[2016-09-06] MEDS: THIAMINE 100 MG TAB PO SCH (09:00)
[2016-09-06] MEDS: SENOKOT S TAB PO SCH ×2 (09:27→20:16)
[2016-09-06] MEDS: FOLIC ACID 1 MG TAB PO SCH (09:27)
[2016-09-06] MEDS: ATORVASTATIN 20 MG TAB PO SCH (09:27)
[2016-09-06] MEDS: ENOXAPARIN 40 MG/0.4 ML SYRINGE (J1650) SC SCH (09:27)
[2016-09-06] MEDS: ASPIRIN 81 MG ENTERIC TAB PO SCH (09:27)
[2016-09-06] MEDS: MULTIVITAMINS/MINERALS THERAP 1 TAB PO SCH (09:27)
[2016-09-06] MEDS: OMEGA-3 1050MG CAPSULE PO SCH (09:27)
[2016-09-06] MEDS: VITAMIN B COMPLEX/VIT C CAP PO SCH (09:27)
[2016-09-06] MEDS: risperiDONE 0.5 MG TAB PO SCH (20:16)
[2016-09-06] MEDS: QUEtiapine FUMARATE 100 MG TAB PO SCH (20:16)
[2016-09-07] MEDS: LORazepam 1 MG TAB PO PRN ×2 (01:07→21:51)
[2016-09-07 06:00] VITALS: BP 147/81
[2016-09-07] MEDS: FOLIC ACID 1 MG TAB PO SCH (09:18)
[2016-09-07] MEDS: SENOKOT S TAB PO SCH ×2 (09:18→21:51)
[2016-09-07] MEDS: ENOXAPARIN 40 MG/0.4 ML SYRINGE (J1650) SC SCH (09:18)
[2016-09-07] MEDS: OMEGA-3 1050MG CAPSULE PO SCH (09:18)
[2016-09-07] MEDS: MULTIVITAMINS/MINERALS THERAP 1 TAB PO SCH (09:18)
[2016-09-07] MEDS: ATORVASTATIN 20 MG TAB PO SCH (09:18)
[2016-09-07] MEDS: ASPIRIN 81 MG ENTERIC TAB PO SCH (09:18)
[2016-09-07] MEDS: THIAMINE 100 MG TAB PO SCH (09:19)
[2016-09-07] MEDS: VITAMIN B COMPLEX/VIT C CAP PO SCH (09:19)
[2016-09-07] MEDS: QUEtiapine FUMARATE 100 MG TAB PO SCH (21:51)
[2016-09-07] MEDS: risperiDONE 0.5 MG TAB PO SCH (21:51)
[2016-09-08 06:00] VITALS: BP 149/67
[2016-09-08] MEDS: SENOKOT S TAB PO SCH ×2 (09:13→19:49)
[2016-09-08] MEDS: OMEGA-3 1050MG CAPSULE PO SCH (09:13)
[2016-09-08] MEDS: FOLIC ACID 1 MG TAB PO SCH (09:13)
[2016-09-08] MEDS: ATORVASTATIN 20 MG TAB PO SCH (09:13)
[2016-09-08] MEDS: ASPIRIN 81 MG ENTERIC TAB PO SCH (09:13)
[2016-09-08] MEDS: THIAMINE 100 MG TAB PO SCH (09:13)
[2016-09-08] MEDS: VITAMIN B COMPLEX/VIT C CAP PO SCH (09:13)
[2016-09-08] MEDS: MULTIVITAMINS/MINERALS THERAP 1 TAB PO SCH (09:13)
[2016-09-08] MEDS: ENOXAPARIN 40 MG/0.4 ML SYRINGE (J1650) SC SCH (11:08)
[2016-09-08] MEDS: QUEtiapine FUMARATE 100 MG TAB PO SCH (19:48)
[2016-09-08] MEDS: risperiDONE 0.5 MG TAB PO SCH (19:48)
[2016-09-08] MEDS: LORazepam 1 MG TAB PO PRN (19:49)
[2016-09-08] MEDS: ACETAMINOPHEN TAB 650MG DOSE (2X325MG) PO PRN (19:50)
[2016-09-09 06:00] VITALS: BP 148/73
[2016-09-09] MEDS: THIAMINE 100 MG TAB PO SCH (09:02)
[2016-09-09] MEDS: OMEGA-3 1050MG CAPSULE PO SCH (09:02)
[2016-09-09] MEDS: ATORVASTATIN 20 MG TAB PO SCH (09:02)
[2016-09-09] MEDS: ASPIRIN 81 MG ENTERIC TAB PO SCH (09:02)
[2016-09-09] MEDS: MULTIVITAMINS/MINERALS THERAP 1 TAB PO SCH (09:02)
[2016-09-09] MEDS: SENOKOT S TAB PO SCH ×2 (09:02→20:20)
[2016-09-09] MEDS: FOLIC ACID 1 MG TAB PO SCH (09:02)
[2016-09-09] MEDS: ENOXAPARIN 40 MG/0.4 ML SYRINGE (J1650) SC SCH (09:03)
[2016-09-09] MEDS: VITAMIN B COMPLEX/VIT C CAP PO SCH (09:12)
[2016-09-09 17:17] VITALS: BP 152/74
[2016-09-09] MEDS: ACETAMINOPHEN TAB 650MG DOSE (2X325MG) PO PRN (20:20)
[2016-09-09] MEDS: LORazepam 1 MG TAB PO PRN (20:20)
[2016-09-09] MEDS: QUEtiapine FUMARATE 100 MG TAB PO SCH (20:20)
[2016-09-09] MEDS: risperiDONE 0.5 MG TAB PO SCH (20:20)
[2016-09-10] MEDS: LORazepam 1 MG TAB PO PRN (03:28)
[2016-09-10] MEDS: ACETAMINOPHEN TAB 650MG DOSE (2X325MG) PO PRN ×2 (03:29→21:15)
[2016-09-10 06:00] VITALS: BP 130/68
[2016-09-10] MEDS: MULTIVITAMINS/MINERALS THERAP 1 TAB PO SCH (08:33)
[2016-09-10] MEDS: FOLIC ACID 1 MG TAB PO SCH (08:33)
[2016-09-10] MEDS: OMEGA-3 1050MG CAPSULE PO SCH (08:33)
[2016-09-10] MEDS: ASPIRIN 81 MG ENTERIC TAB PO SCH (08:33)
[2016-09-10] MEDS: THIAMINE 100 MG TAB PO SCH (08:33)
[2016-09-10] MEDS: ATORVASTATIN 20 MG TAB PO SCH (08:33)
[2016-09-10] MEDS: SENOKOT S TAB PO SCH ×2 (08:33→21:15)
[2016-09-10] MEDS: VITAMIN B COMPLEX/VIT C CAP PO SCH (08:34)
[2016-09-10] MEDS: ENOXAPARIN 40 MG/0.4 ML SYRINGE (J1650) SC SCH (08:34)
[2016-09-10] MEDS: risperiDONE 0.5 MG TAB PO SCH (21:15)
[2016-09-10] MEDS: QUEtiapine FUMARATE 100 MG TAB PO SCH (21:15)
[2016-09-11 06:00] VITALS: BP 155/75
[2016-09-11] MEDS: VITAMIN B COMPLEX/VIT C CAP PO SCH (10:12)
[2016-09-11] MEDS: OMEGA-3 1050MG CAPSULE PO SCH (10:12)
[2016-09-11] MEDS: ASPIRIN 81 MG ENTERIC TAB PO SCH (10:13)
[2016-09-11] MEDS: THIAMINE 100 MG TAB PO SCH (10:13)
[2016-09-11] MEDS: MULTIVITAMINS/MINERALS THERAP 1 TAB PO SCH (10:13)
[2016-09-11] MEDS: SENOKOT S TAB PO SCH ×2 (10:13→21:06)
[2016-09-11] MEDS: ENOXAPARIN 40 MG/0.4 ML SYRINGE (J1650) SC SCH (10:13)
[2016-09-11] MEDS: FOLIC ACID 1 MG TAB PO SCH (10:13)
[2016-09-11] MEDS: ATORVASTATIN 20 MG TAB PO SCH (10:13)
[2016-09-11] MEDS: QUEtiapine FUMARATE 100 MG TAB PO SCH (21:06)
[2016-09-11] MEDS: risperiDONE 0.5 MG TAB PO SCH (21:06)
[2016-09-11 22:00] VITALS: BP 154/80
[2016-09-12 06:00] VITALS: BP 171/92
[2016-09-12] MEDS: OMEGA-3 1050MG CAPSULE PO SCH (10:02)
[2016-09-12] MEDS: ATORVASTATIN 20 MG TAB PO SCH (10:02)
[2016-09-12] MEDS: ASPIRIN 81 MG ENTERIC TAB PO SCH (10:02)
[2016-09-12] MEDS: SENOKOT S TAB PO SCH ×2 (10:03→20:52)
[2016-09-12] MEDS: MULTIVITAMINS/MINERALS THERAP 1 TAB PO SCH (10:03)
[2016-09-12] MEDS: FOLIC ACID 1 MG TAB PO SCH (10:03)
[2016-09-12] MEDS: THIAMINE 100 MG TAB PO SCH (10:03)
[2016-09-12] MEDS: VITAMIN B COMPLEX/VIT C CAP PO SCH (10:03)
[2016-09-12] MEDS: ENOXAPARIN 40 MG/0.4 ML SYRINGE (J1650) SC SCH (10:04)
[2016-09-12 17:15] VITALS: BP 146/76
[2016-09-12] MEDS: QUEtiapine FUMARATE 100 MG TAB PO SCH (20:52)
[2016-09-12] MEDS: risperiDONE 0.5 MG TAB PO SCH (20:52)
[2016-09-13 06:00] VITALS: BP 142/66
[2016-09-13] MEDS: OMEGA-3 1050MG CAPSULE PO SCH (09:30)
[2016-09-13] MEDS: THIAMINE 100 MG TAB PO SCH (09:30)
[2016-09-13] MEDS: ATORVASTATIN 20 MG TAB PO SCH (09:30)
[2016-09-13] MEDS: VITAMIN B COMPLEX/VIT C CAP PO SCH (09:30)
[2016-09-13] MEDS: MULTIVITAMINS/MINERALS THERAP 1 TAB PO SCH (09:30)
[2016-09-13] MEDS: FOLIC ACID 1 MG TAB PO SCH (09:30)
[2016-09-13] MEDS: ASPIRIN 81 MG ENTERIC TAB PO SCH (09:30)
[2016-09-13] MEDS: SENOKOT S TAB PO SCH ×2 (09:30→20:01)
[2016-09-13] MEDS: ENOXAPARIN 40 MG/0.4 ML SYRINGE (J1650) SC SCH (09:31)
[2016-09-13] MEDS: QUEtiapine FUMARATE 100 MG TAB PO SCH (20:01)
[2016-09-13] MEDS: risperiDONE 0.5 MG TAB PO SCH (20:01)
[2016-09-14 06:00] VITALS: BP 124/65
--- NOTE | 2016-09-14 08:53 | IPNPDOC ---
Date Seen The patient was seen on 09/14/16. Progress Note Patient is a 70 year old male with a PMHx of HTN, DLP and Anxiety who presented to the ER with confusion. He had a workup for reversible causes of encephalopathy that has come back negative. He is in the process of having placement established. Patient was seen and examined at the bedside. Objective: Vitals (See below) General: Lying in bed, no acute distress, comfortable, AAOx1 (person only) HEENT: NC, AT CVS: RRR, +S1S2 Lungs: Fair air entry b/l, -w/r/r Abdomen: Soft, ND, NT, +BSx4 Extremities: - Edema, - Calf tenderness Assessment and plan: 1. Confusion - 2/2 progression of underlying dementia - Pleasant upon conversation; is only oriented to person - Imaging negative - TSH / Ammonia / Toxicology / Syphilis / ESR / CRP negative - No evidence of infection - PFS on board for placement; family aware 2. Dementia - c/w Seroquel, respiridone and ativan prn 3. HTN - BP well controlled 4. Dyslipidemia : continue on statin 5. Anxiety : continue on ativan prn 6. DVT prophylaxis - c/w Lovenox Disposition: - PFS to establish placement VS, I&O, 24H, Fishbone Vital Signs/I&O Vital Signs Date Time Temp Pulse Resp B/P (MAP) Pulse Ox O2 Delivery O2 Flow Rate FiO2 09/14/16 06:00 98.4 100 20 124/65 (84) 98 09/13/16 21:04 Room Air I&O- Last 24 Hours up to 6 AM 09/14/16 05:59 Intake Total 540 ml Output Total 0 ml Balance 540 ml VEENA MATTHEWS MD Sep 14, 2016 08:53
[2016-09-14 09:27] LABS: MEAN CORPUSCULAR HEMOGLOBIN 32.1 pg (27.0-33.0); MEAN CORPUSCULAR HGB CONC 33.5 g/dl (32.0-36.5); MEAN CORPUSCULAR VOLUME 95.9 fl (80.0-96.0); RED CELL DISTRIBUTION WIDTH 12.2 % (11.5-14.5); WHITE BLOOD COUNT 6.6 K/mm3 (4.0-10.0)
[2016-09-14] MEDS: FOLIC ACID 1 MG TAB PO SCH (09:58)
[2016-09-14] MEDS: ATORVASTATIN 20 MG TAB PO SCH (09:58)
[2016-09-14] MEDS: THIAMINE 100 MG TAB PO SCH (09:58)
[2016-09-14] MEDS: VITAMIN B COMPLEX/VIT C CAP PO SCH (09:58)
[2016-09-14] MEDS: ASPIRIN 81 MG ENTERIC TAB PO SCH (09:58)
[2016-09-14] MEDS: MULTIVITAMINS/MINERALS THERAP 1 TAB PO SCH (09:58)
[2016-09-14] MEDS: SENOKOT S TAB PO SCH ×2 (09:58→20:28)
[2016-09-14] MEDS: OMEGA-3 1050MG CAPSULE PO SCH (09:58)
[2016-09-14] MEDS: ENOXAPARIN 40 MG/0.4 ML SYRINGE (J1650) SC SCH (09:58)
[2016-09-14 10:09] LABS: ANION GAP 10 MEQ/L (8-16); BLOOD UREA NITROGEN 20 MG/DL (7-18); CALCIUM LEVEL 9.3 MG/DL (8.8-10.2); CARBON DIOXIDE LEVEL 29 MEQ/L (21-32); CHLORIDE LEVEL 103 MEQ/L (98-107); CREATININE FOR GFR 0.93 MG/DL (0.70-1.30); GLOMERULAR FILTRATION RATE > 60.0 (>42); GLUCOSE, FASTING 101 MG/DL (83-110); POTASSIUM SERUM 3.8 MEQ/L (3.5-5.1); SODIUM LEVEL 142 MEQ/L (136-145)
[2016-09-14] MEDS: risperiDONE 0.5 MG TAB PO SCH (20:28)
[2016-09-14] MEDS: ACETAMINOPHEN TAB 650MG DOSE (2X325MG) PO PRN (20:28)
[2016-09-14] MEDS: QUEtiapine FUMARATE 100 MG TAB PO SCH (20:28)
[2016-09-14] MEDS: LORazepam 1 MG TAB PO PRN (22:17)
[2016-09-15 06:00] VITALS: BP 160/80
[2016-09-15] MEDS: VITAMIN B COMPLEX/VIT C CAP PO SCH (09:49)
[2016-09-15] MEDS: ASPIRIN 81 MG ENTERIC TAB PO SCH (09:49)
[2016-09-15] MEDS: ATORVASTATIN 20 MG TAB PO SCH (09:49)
[2016-09-15] MEDS: SENOKOT S TAB PO SCH ×2 (09:49→20:53)
[2016-09-15] MEDS: ENOXAPARIN 40 MG/0.4 ML SYRINGE (J1650) SC SCH (09:49)
[2016-09-15] MEDS: FOLIC ACID 1 MG TAB PO SCH (09:49)
[2016-09-15] MEDS: THIAMINE 100 MG TAB PO SCH (09:49)
[2016-09-15] MEDS: OMEGA-3 1050MG CAPSULE PO SCH (09:49)
[2016-09-15] MEDS: MULTIVITAMINS/MINERALS THERAP 1 TAB PO SCH (09:49)
[2016-09-15] MEDS: risperiDONE 0.5 MG TAB PO SCH (20:53)
[2016-09-15] MEDS: QUEtiapine FUMARATE 100 MG TAB PO SCH (20:53)
[2016-09-16 06:00] VITALS: BP 137/66
[2016-09-16] MEDS: ATORVASTATIN 20 MG TAB PO SCH (10:26)
[2016-09-16] MEDS: MULTIVITAMINS/MINERALS THERAP 1 TAB PO SCH (10:26)
[2016-09-16] MEDS: THIAMINE 100 MG TAB PO SCH (10:26)
[2016-09-16] MEDS: VITAMIN B COMPLEX/VIT C CAP PO SCH (10:26)
[2016-09-16] MEDS: FOLIC ACID 1 MG TAB PO SCH (10:27)
[2016-09-16] MEDS: ASPIRIN 81 MG ENTERIC TAB PO SCH (10:27)
[2016-09-16] MEDS: SENOKOT S TAB PO SCH ×2 (10:27→21:59)
[2016-09-16] MEDS: ENOXAPARIN 40 MG/0.4 ML SYRINGE (J1650) SC SCH (10:27)
[2016-09-16] MEDS: OMEGA-3 1050MG CAPSULE PO SCH (10:27)
[2016-09-16] MEDS: QUEtiapine FUMARATE 100 MG TAB PO SCH (21:59)
[2016-09-16] MEDS: risperiDONE 0.5 MG TAB PO SCH (21:59)
[2016-09-17 06:00] VITALS: BP 133/64
[2016-09-17] MEDS: ENOXAPARIN 40 MG/0.4 ML SYRINGE (J1650) SC SCH (10:11)
[2016-09-17] MEDS: OMEGA-3 1050MG CAPSULE PO SCH (10:11)
[2016-09-17] MEDS: MULTIVITAMINS/MINERALS THERAP 1 TAB PO SCH (10:12)
[2016-09-17] MEDS: ATORVASTATIN 20 MG TAB PO SCH (10:12)
[2016-09-17] MEDS: THIAMINE 100 MG TAB PO SCH (10:12)
[2016-09-17] MEDS: FOLIC ACID 1 MG TAB PO SCH (10:12)
[2016-09-17] MEDS: VITAMIN B COMPLEX/VIT C CAP PO SCH (10:12)
[2016-09-17] MEDS: ASPIRIN 81 MG ENTERIC TAB PO SCH (10:12)
[2016-09-17] MEDS: SENOKOT S TAB PO SCH ×2 (10:13→20:02)
[2016-09-17] MEDS: risperiDONE 0.5 MG TAB PO SCH (20:02)
[2016-09-17] MEDS: QUEtiapine FUMARATE 100 MG TAB PO SCH (20:02)
[2016-09-18 06:00] VITALS: BP 148/73
[2016-09-18] MEDS: VITAMIN B COMPLEX/VIT C CAP PO SCH (10:18)
[2016-09-18] MEDS: ASPIRIN 81 MG ENTERIC TAB PO SCH (10:19)
[2016-09-18] MEDS: OMEGA-3 1050MG CAPSULE PO SCH (10:19)
[2016-09-18] MEDS: FOLIC ACID 1 MG TAB PO SCH (10:20)
[2016-09-18] MEDS: MULTIVITAMINS/MINERALS THERAP 1 TAB PO SCH (10:20)
[2016-09-18] MEDS: THIAMINE 100 MG TAB PO SCH (10:20)
[2016-09-18] MEDS: ATORVASTATIN 20 MG TAB PO SCH (10:20)
[2016-09-18] MEDS: ENOXAPARIN 40 MG/0.4 ML SYRINGE (J1650) SC SCH (10:21)
[2016-09-18] MEDS: SENOKOT S TAB PO SCH ×2 (10:21→22:29)
[2016-09-18] MEDS: QUEtiapine FUMARATE 100 MG TAB PO SCH (22:29)
[2016-09-18] MEDS: LORazepam 1 MG TAB PO PRN (22:29)
[2016-09-18] MEDS: risperiDONE 0.5 MG TAB PO SCH (22:30)
[2016-09-19 06:00] VITALS: BP 116/69
[2016-09-19] MEDS: ATORVASTATIN 20 MG TAB PO SCH (09:12)
[2016-09-19] MEDS: SENOKOT S TAB PO SCH ×2 (09:12→21:02)
[2016-09-19] MEDS: MULTIVITAMINS/MINERALS THERAP 1 TAB PO SCH (09:12)
[2016-09-19] MEDS: OMEGA-3 1050MG CAPSULE PO SCH (09:12)
[2016-09-19] MEDS: VITAMIN B COMPLEX/VIT C CAP PO SCH (09:12)
[2016-09-19] MEDS: ENOXAPARIN 40 MG/0.4 ML SYRINGE (J1650) SC SCH (09:12)
[2016-09-19] MEDS: ASPIRIN 81 MG ENTERIC TAB PO SCH (09:13)
[2016-09-19] MEDS: FOLIC ACID 1 MG TAB PO SCH (09:13)
[2016-09-19] MEDS: THIAMINE 100 MG TAB PO SCH (09:13)
--- NOTE | 2016-09-19 10:48 | IPNPDOC ---
Date Seen The patient was seen on 09/19/16. Progress Note Hospitalist Progress Note Subjective: When I asked the patient if anything was bothering him, he tells me that yes, the fact that there are kids yelling in the street making a lot of noise bothers him. When I ask him how his body is doing, he tells me that his body is feeling well. Objective: Physical Exam: Vitals: Reviewed in the computer for the last several days; please see below for last 24 hours General: Awake, alert, no acute distress HEENT: Normocephalic, atraumatic, moist mucous membranes CV: Regular rate and rhythm Lungs: Clear to auscultation bilaterally Abd: Soft, nontender, nondistended Extremities: No edema Neuro: Alert and oriented to person only, moving all extremities, normal speech Psych: cooperative Labs and Imaging: Reviewed in the EMR Assessment and Plan: 70-year-old male with dementia, hypertension, hyperlipidemia who was brought to the emergency department after being found confused on a neighbor's porch. He has had a thorough workup for any reversible causes of his encephalopathy, and this workup has been unrevealing. He is currently awaiting long-term placement. 1. Encephalopathy: Likely secondary to underlying dementia. CT of the head, MRI of the brain were negative for acute findings. There is no evidence of infection or reversible metabolic alteration on his lab work. ESR, CRP, syphilis , TSH, ammonia levels, toxicology screens were all within normal limits. 2. Dementia: Continue Seroquel and Risperdal 3. Hypertension: Control is currently adequate but could be improved. He has not been receiving his home TIFFANIE inhibitor/HCTZ while here. We will restart it at this time. 4. Hyperlipidemia: Continue statin DVT prophylaxis: Lovenox Dispo: PFS is currently working on placement can very to his underlying dementia VS, I&O, 24H, Fishbone Vital Signs/I&O Vital Signs Date Time Temp Pulse Resp B/P (MAP) Pulse Ox O2 Delivery O2 Flow Rate FiO2 09/19/16 06:00 97.1 112 18 116/69 (85) 100 Room Air I&O- Last 24 Hours up to 6 AM 09/19/16 06:00 Intake Total 600 ml Balance 600 ml MARYLU PATTERSON Sep 19, 2016 10:48
[2016-09-19] MEDS: hydroCHLOROthiazide 12.5 MG CAPSULE PO SCH (12:10)
[2016-09-19] MEDS: LISINOPRIL 10 MG TAB PO SCH (12:11)
[2016-09-19] MEDS: QUEtiapine FUMARATE 100 MG TAB PO SCH (21:02)
[2016-09-19] MEDS: risperiDONE 0.5 MG TAB PO SCH (21:02)
[2016-09-20 06:25] VITALS: BP 119/70
[2016-09-20] MEDS: MULTIVITAMINS/MINERALS THERAP 1 TAB PO SCH (09:00)
[2016-09-20] MEDS: THIAMINE 100 MG TAB PO SCH (10:46)
[2016-09-20] MEDS: ASPIRIN 81 MG ENTERIC TAB PO SCH (10:46)
[2016-09-20] MEDS: hydroCHLOROthiazide 12.5 MG CAPSULE PO SCH (10:46)
[2016-09-20] MEDS: SENOKOT S TAB PO SCH ×2 (10:46→20:01)
[2016-09-20] MEDS: ATORVASTATIN 20 MG TAB PO SCH (10:47)
[2016-09-20] MEDS: VITAMIN B COMPLEX/VIT C CAP PO SCH (10:47)
[2016-09-20] MEDS: FOLIC ACID 1 MG TAB PO SCH (10:47)
[2016-09-20] MEDS: OMEGA-3 1050MG CAPSULE PO SCH (10:48)
[2016-09-20] MEDS: LISINOPRIL 10 MG TAB PO SCH (10:48)
[2016-09-20] MEDS: ENOXAPARIN 40 MG/0.4 ML SYRINGE (J1650) SC SCH (10:49)
[2016-09-20] MEDS: risperiDONE 0.5 MG TAB PO SCH (20:01)
[2016-09-20] MEDS: QUEtiapine FUMARATE 100 MG TAB PO SCH (20:01)
[2016-09-20] MEDS: LORazepam 1 MG TAB PO PRN (20:01)
[2016-09-20] MEDS: ACETAMINOPHEN TAB 650MG DOSE (2X325MG) PO PRN (20:05)
[2016-09-21 06:10] VITALS: BP 121/59
[2016-09-21] MEDS: SENOKOT S TAB PO SCH ×2 (08:10→22:40)
[2016-09-21] MEDS: hydroCHLOROthiazide 12.5 MG CAPSULE PO SCH (08:10)
[2016-09-21] MEDS: ATORVASTATIN 20 MG TAB PO SCH (08:10)
[2016-09-21] MEDS: FOLIC ACID 1 MG TAB PO SCH (08:10)
[2016-09-21] MEDS: MULTIVITAMINS/MINERALS THERAP 1 TAB PO SCH (08:10)
[2016-09-21] MEDS: OMEGA-3 1050MG CAPSULE PO SCH (08:11)
[2016-09-21] MEDS: THIAMINE 100 MG TAB PO SCH (08:11)
[2016-09-21] MEDS: LISINOPRIL 10 MG TAB PO SCH (08:11)
[2016-09-21] MEDS: ASPIRIN 81 MG ENTERIC TAB PO SCH (08:11)
[2016-09-21] MEDS: VITAMIN B COMPLEX/VIT C CAP PO SCH (08:11)
[2016-09-21] MEDS: ENOXAPARIN 40 MG/0.4 ML SYRINGE (J1650) SC SCH (08:11)
[2016-09-21 09:09] LABS: MEAN CORPUSCULAR HEMOGLOBIN 31.8 pg (27.0-33.0); MEAN CORPUSCULAR HGB CONC 34.3 g/dl (32.0-36.5); MEAN CORPUSCULAR VOLUME 92.7 fl (80.0-96.0); RED CELL DISTRIBUTION WIDTH 12.3 % (11.5-14.5); WHITE BLOOD COUNT 4.9 K/mm3 (4.0-10.0)
[2016-09-21 09:29] LABS: ANION GAP 9 MEQ/L (8-16); BLOOD UREA NITROGEN 17 MG/DL (7-18); CALCIUM LEVEL 9.3 MG/DL (8.8-10.2); CARBON DIOXIDE LEVEL 27 MEQ/L (21-32); CHLORIDE LEVEL 103 MEQ/L (98-107); CREATININE FOR GFR 0.85 MG/DL (0.70-1.30); GLOMERULAR FILTRATION RATE > 60.0 (>42); GLUCOSE, FASTING 95 MG/DL (83-110); POTASSIUM SERUM 3.8 MEQ/L (3.5-5.1); SODIUM LEVEL 139 MEQ/L (136-145)
[2016-09-21] MEDS: QUEtiapine FUMARATE 100 MG TAB PO SCH (22:41)
[2016-09-21] MEDS: risperiDONE 0.5 MG TAB PO SCH (22:42)
[2016-09-22] MEDS: ASPIRIN 81 MG ENTERIC TAB PO SCH (09:44)
[2016-09-22] MEDS: MULTIVITAMINS/MINERALS THERAP 1 TAB PO SCH (09:44)
[2016-09-22] MEDS: LISINOPRIL 10 MG TAB PO SCH (09:45)
[2016-09-22] MEDS: VITAMIN B COMPLEX/VIT C CAP PO SCH (09:45)
[2016-09-22] MEDS: SENOKOT S TAB PO SCH ×2 (09:45→20:45)
[2016-09-22] MEDS: THIAMINE 100 MG TAB PO SCH (09:46)
[2016-09-22] MEDS: ATORVASTATIN 20 MG TAB PO SCH (09:46)
[2016-09-22] MEDS: FOLIC ACID 1 MG TAB PO SCH (09:46)
[2016-09-22] MEDS: OMEGA-3 1050MG CAPSULE PO SCH (09:46)
[2016-09-22] MEDS: hydroCHLOROthiazide 12.5 MG CAPSULE PO SCH (09:50)
[2016-09-22] MEDS: ENOXAPARIN 40 MG/0.4 ML SYRINGE (J1650) SC SCH (09:54)
[2016-09-22] MEDS: QUEtiapine FUMARATE 100 MG TAB PO SCH (20:45)
[2016-09-22] MEDS: risperiDONE 0.5 MG TAB PO SCH (20:45)
[2016-09-23 06:00] VITALS: BP 131/63
[2016-09-23] MEDS: hydroCHLOROthiazide 12.5 MG CAPSULE PO SCH (09:22)
[2016-09-23] MEDS: OMEGA-3 1050MG CAPSULE PO SCH (09:22)
[2016-09-23] MEDS: VITAMIN B COMPLEX/VIT C CAP PO SCH (09:22)
[2016-09-23] MEDS: SENOKOT S TAB PO SCH ×2 (09:22→20:54)
[2016-09-23] MEDS: ASPIRIN 81 MG ENTERIC TAB PO SCH (09:22)
[2016-09-23] MEDS: LISINOPRIL 10 MG TAB PO SCH (09:22)
[2016-09-23] MEDS: MULTIVITAMINS/MINERALS THERAP 1 TAB PO SCH (09:22)
[2016-09-23] MEDS: ATORVASTATIN 20 MG TAB PO SCH (09:23)
[2016-09-23] MEDS: FOLIC ACID 1 MG TAB PO SCH (09:23)
[2016-09-23] MEDS: ENOXAPARIN 40 MG/0.4 ML SYRINGE (J1650) SC SCH (09:23)
[2016-09-23] MEDS: THIAMINE 100 MG TAB PO SCH (09:23)
[2016-09-23] MEDS: QUEtiapine FUMARATE 100 MG TAB PO SCH (20:54)
[2016-09-23] MEDS: risperiDONE 0.5 MG TAB PO SCH (20:55)
[2016-09-24 06:00] VITALS: BP 127/59
[2016-09-24] MEDS: ENOXAPARIN 40 MG/0.4 ML SYRINGE (J1650) SC SCH (09:53)
[2016-09-24] MEDS: OMEGA-3 1050MG CAPSULE PO SCH (09:53)
[2016-09-24] MEDS: ASPIRIN 81 MG ENTERIC TAB PO SCH (09:53)
[2016-09-24] MEDS: ATORVASTATIN 20 MG TAB PO SCH (09:54)
[2016-09-24] MEDS: hydroCHLOROthiazide 12.5 MG CAPSULE PO SCH (09:54)
[2016-09-24] MEDS: THIAMINE 100 MG TAB PO SCH (09:54)
[2016-09-24] MEDS: FOLIC ACID 1 MG TAB PO SCH (09:54)
[2016-09-24] MEDS: SENOKOT S TAB PO SCH ×2 (09:54→21:55)
[2016-09-24] MEDS: VITAMIN B COMPLEX/VIT C CAP PO SCH (09:54)
[2016-09-24] MEDS: MULTIVITAMINS/MINERALS THERAP 1 TAB PO SCH (09:54)
[2016-09-24] MEDS: LISINOPRIL 10 MG TAB PO SCH (09:55)
[2016-09-24] MEDS: QUEtiapine FUMARATE 100 MG TAB PO SCH (21:55)
[2016-09-24] MEDS: risperiDONE 0.5 MG TAB PO SCH (21:55)
[2016-09-25 06:00] VITALS: BP 126/60
[2016-09-25] MEDS: LISINOPRIL 10 MG TAB PO SCH (09:00)
[2016-09-25] MEDS: FOLIC ACID 1 MG TAB PO SCH (09:43)
[2016-09-25] MEDS: hydroCHLOROthiazide 12.5 MG CAPSULE PO SCH (09:43)
[2016-09-25] MEDS: ASPIRIN 81 MG ENTERIC TAB PO SCH (09:43)
[2016-09-25] MEDS: MULTIVITAMINS/MINERALS THERAP 1 TAB PO SCH (09:43)
[2016-09-25] MEDS: ATORVASTATIN 20 MG TAB PO SCH (09:43)
[2016-09-25] MEDS: THIAMINE 100 MG TAB PO SCH (09:43)
[2016-09-25] MEDS: OMEGA-3 1050MG CAPSULE PO SCH (09:43)
[2016-09-25] MEDS: SENOKOT S TAB PO SCH ×2 (09:43→21:48)
[2016-09-25] MEDS: ENOXAPARIN 40 MG/0.4 ML SYRINGE (J1650) SC SCH (09:44)
[2016-09-25] MEDS: VITAMIN B COMPLEX/VIT C CAP PO SCH (09:44)
[2016-09-25] MEDS: risperiDONE 0.5 MG TAB PO SCH (21:48)
[2016-09-25] MEDS: QUEtiapine FUMARATE 100 MG TAB PO SCH (21:48)
[2016-09-26 06:00] VITALS: BP 134/63
[2016-09-26 08:36] LABS: MEAN CORPUSCULAR HEMOGLOBIN 31.5 pg (27.0-33.0); MEAN CORPUSCULAR VOLUME 95.3 fl (80.0-96.0); RED CELL DISTRIBUTION WIDTH 12.5 % (11.5-14.5); WHITE BLOOD COUNT 4.9 K/mm3 (4.0-10.0)
[2016-09-26 09:11] LABS: ANION GAP 7 MEQ/L (8-16); BLOOD UREA NITROGEN 28 MG/DL (7-18); CARBON DIOXIDE LEVEL 29 MEQ/L (21-32); CHLORIDE LEVEL 102 MEQ/L (98-107); CREATININE FOR GFR 0.78 MG/DL (0.70-1.30); GLOMERULAR FILTRATION RATE > 60.0 (>42); GLUCOSE, FASTING 118 MG/DL (83-110); SODIUM LEVEL 138 MEQ/L (136-145)
[2016-09-26] MEDS: MULTIVITAMINS/MINERALS THERAP 1 TAB PO SCH (09:35)
[2016-09-26] MEDS: ASPIRIN 81 MG ENTERIC TAB PO SCH (09:35)
[2016-09-26] MEDS: FOLIC ACID 1 MG TAB PO SCH (09:36)
[2016-09-26] MEDS: SENOKOT S TAB PO SCH ×2 (09:36→20:02)
[2016-09-26] MEDS: VITAMIN B COMPLEX/VIT C CAP PO SCH (09:36)
[2016-09-26] MEDS: ATORVASTATIN 20 MG TAB PO SCH (09:37)
[2016-09-26] MEDS: THIAMINE 100 MG TAB PO SCH (09:37)
[2016-09-26] MEDS: OMEGA-3 1050MG CAPSULE PO SCH (09:40)
[2016-09-26] MEDS: ENOXAPARIN 40 MG/0.4 ML SYRINGE (J1650) SC SCH (09:40)
[2016-09-26] MEDS: LISINOPRIL 10 MG TAB PO SCH (09:40)
[2016-09-26] MEDS: hydroCHLOROthiazide 12.5 MG CAPSULE PO SCH (09:41)
--- NOTE | 2016-09-26 12:00 | IPNPDOC ---
Text Note Date of Service The patient was seen on 09/26/16. NOTE Subjective: No acute changes. Denies any complaints. Objective: Vitals: (see below) General: No acute distress, laying comfortably in bed. HEENT: Moist mucous membranes. Neck: No JVD or lymphadenopathy Cardiac: RRR, No murmurs Pulm: Clear to auscultation b/l. No wheezing, rhonchi Abd: NT/ND + BS Ext: No edema or cyanosis Labs (see below) Images: Assessment/Plan 1. Encephalopathy, likely progression of dementia. Extensive workup completed. 2. Dementia - on seroquel 3. HTN stable 4. HLD on statin 5. Anxiety on ativan as needed DVT prophy: Lovenox SC Dispo: pending placement. VS,Fishbone, I+O VS, Fishbone, I+O Laboratory Tests 09/26/16 08:28 Red Blood Count 3.58 L, Mean Corpuscular Volume 95.3, Mean Corpuscular Hemoglobin 31.5, Mean Corpuscular Hemoglobin Concent 33.0, Red Cell Distribution Width 12.5, Calcium Level 8.0 L Vital Signs Date Time Temp Pulse Resp B/P (MAP) Pulse Ox O2 Delivery O2 Flow Rate FiO2 09/26/16 09:40 108/60 09/26/16 06:00 97.1 85 18 98 Room Air I&O- Last 24 Hours up to 6 AM 09/26/16 06:00 Intake Total 1560 ml Balance 1560 ml FANY CARLOS MD Sep 26, 2016 12:00
[2016-09-26] MEDS: LORazepam 1 MG TAB PO PRN (16:26)
[2016-09-26] MEDS ORDERED: HALOPERIDOL 5 MG/ML VIAL (J1630) IM ONE (19:00)
[2016-09-26] MEDS: QUEtiapine FUMARATE 100 MG TAB PO SCH (20:02)
[2016-09-26] MEDS: risperiDONE 0.5 MG TAB PO SCH (20:02)
[2016-09-27 06:00] VITALS: BP 116/62
[2016-09-27] MEDS: SENOKOT S TAB PO SCH ×2 (09:45→20:21)
[2016-09-27] MEDS: FOLIC ACID 1 MG TAB PO SCH (09:45)
[2016-09-27] MEDS: hydroCHLOROthiazide 12.5 MG CAPSULE PO SCH (09:45)
[2016-09-27] MEDS: THIAMINE 100 MG TAB PO SCH (09:45)
[2016-09-27] MEDS: ATORVASTATIN 20 MG TAB PO SCH (09:45)
[2016-09-27] MEDS: MULTIVITAMINS/MINERALS THERAP 1 TAB PO SCH (09:45)
[2016-09-27] MEDS: VITAMIN B COMPLEX/VIT C CAP PO SCH (09:45)
[2016-09-27] MEDS: ENOXAPARIN 40 MG/0.4 ML SYRINGE (J1650) SC SCH (09:46)
[2016-09-27] MEDS: ASPIRIN 81 MG ENTERIC TAB PO SCH (09:46)
[2016-09-27] MEDS: OMEGA-3 1050MG CAPSULE PO SCH (09:46)
[2016-09-27] MEDS: LISINOPRIL 10 MG TAB PO SCH (09:46)
[2016-09-27] MEDS: QUEtiapine FUMARATE 100 MG TAB PO SCH (20:21)
[2016-09-27] MEDS: risperiDONE 0.5 MG TAB PO SCH (20:21)
[2016-09-28 06:00] VITALS: BP 123/57
[2016-09-28] MEDS: ATORVASTATIN 20 MG TAB PO SCH (11:06)
[2016-09-28] MEDS: FOLIC ACID 1 MG TAB PO SCH (11:06)
[2016-09-28] MEDS: VITAMIN B COMPLEX/VIT C CAP PO SCH (11:06)
[2016-09-28] MEDS: MULTIVITAMINS/MINERALS THERAP 1 TAB PO SCH (11:06)
[2016-09-28] MEDS: THIAMINE 100 MG TAB PO SCH (11:06)
[2016-09-28] MEDS: ASPIRIN 81 MG ENTERIC TAB PO SCH (11:06)
[2016-09-28] MEDS: ENOXAPARIN 40 MG/0.4 ML SYRINGE (J1650) SC SCH (11:06)
[2016-09-28] MEDS: hydroCHLOROthiazide 12.5 MG CAPSULE PO SCH (11:07)
[2016-09-28] MEDS: SENOKOT S TAB PO SCH ×2 (11:07→21:18)
[2016-09-28] MEDS: LISINOPRIL 10 MG TAB PO SCH (11:07)
[2016-09-28] MEDS: OMEGA-3 1050MG CAPSULE PO SCH (11:07)
[2016-09-28 11:50] LABS: MEAN CORPUSCULAR HEMOGLOBIN 31.8 pg (27.0-33.0); MEAN CORPUSCULAR HGB CONC 33.1 g/dl (32.0-36.5); RED CELL DISTRIBUTION WIDTH 12.3 % (11.5-14.5); WHITE BLOOD COUNT 7.1 K/mm3 (4.0-10.0)
[2016-09-28 12:25] LABS: ANION GAP 7 MEQ/L (8-16); BLOOD UREA NITROGEN 35 MG/DL (7-18); CALCIUM LEVEL 9.2 MG/DL (8.8-10.2); CARBON DIOXIDE LEVEL 31 MEQ/L (21-32); CHLORIDE LEVEL 98 MEQ/L (98-107); CREATININE FOR GFR 0.91 MG/DL (0.70-1.30); GLOMERULAR FILTRATION RATE > 60.0 (>42); GLUCOSE, FASTING 90 MG/DL (83-110); POTASSIUM SERUM 4.3 MEQ/L (3.5-5.1); SODIUM LEVEL 136 MEQ/L (136-145)
[2016-09-28] MEDS: risperiDONE 0.5 MG TAB PO SCH (21:17)
[2016-09-28] MEDS: QUEtiapine FUMARATE 100 MG TAB PO SCH (21:17)
[2016-09-29 06:00] VITALS: BP 127/61
[2016-09-29] MEDS: VITAMIN B COMPLEX/VIT C CAP PO SCH (10:11)
[2016-09-29] MEDS: ENOXAPARIN 40 MG/0.4 ML SYRINGE (J1650) SC SCH (10:11)
[2016-09-29] MEDS: ASPIRIN 81 MG ENTERIC TAB PO SCH (10:11)
[2016-09-29] MEDS: SENOKOT S TAB PO SCH ×2 (10:11→20:57)
[2016-09-29] MEDS: ATORVASTATIN 20 MG TAB PO SCH (10:11)
[2016-09-29] MEDS: OMEGA-3 1050MG CAPSULE PO SCH (10:11)
[2016-09-29] MEDS: FOLIC ACID 1 MG TAB PO SCH (10:11)
[2016-09-29] MEDS: THIAMINE 100 MG TAB PO SCH (10:12)
[2016-09-29] MEDS: hydroCHLOROthiazide 12.5 MG CAPSULE PO SCH (10:12)
[2016-09-29] MEDS: MULTIVITAMINS/MINERALS THERAP 1 TAB PO SCH (10:12)
[2016-09-29] MEDS: LISINOPRIL 10 MG TAB PO SCH (10:12)
[2016-09-29] MEDS: QUEtiapine FUMARATE 100 MG TAB PO SCH (20:57)
[2016-09-29] MEDS: risperiDONE 0.5 MG TAB PO SCH (20:57)
[2016-09-30 06:00] VITALS: BP 134/65
[2016-09-30] MEDS: FOLIC ACID 1 MG TAB PO SCH (09:32)
[2016-09-30] MEDS: MULTIVITAMINS/MINERALS THERAP 1 TAB PO SCH (09:32)
[2016-09-30] MEDS: SENOKOT S TAB PO SCH ×2 (09:33→21:53)
[2016-09-30] MEDS: ASPIRIN 81 MG ENTERIC TAB PO SCH (09:33)
[2016-09-30] MEDS: VITAMIN B COMPLEX/VIT C CAP PO SCH (09:33)
[2016-09-30] MEDS: THIAMINE 100 MG TAB PO SCH (09:33)
[2016-09-30] MEDS: OMEGA-3 1050MG CAPSULE PO SCH (09:34)
[2016-09-30] MEDS: LISINOPRIL 10 MG TAB PO SCH (09:34)
[2016-09-30] MEDS: hydroCHLOROthiazide 12.5 MG CAPSULE PO SCH (09:34)
[2016-09-30] MEDS: ATORVASTATIN 20 MG TAB PO SCH (09:34)
[2016-09-30] MEDS: ENOXAPARIN 40 MG/0.4 ML SYRINGE (J1650) SC SCH (09:35)
[2016-09-30] MEDS: risperiDONE 0.5 MG TAB PO SCH (21:52)
[2016-09-30] MEDS: QUEtiapine FUMARATE 100 MG TAB PO SCH (21:53)
[2016-10-01 06:00] VITALS: BP 119/64
[2016-10-01] MEDS: MULTIVITAMINS/MINERALS THERAP 1 TAB PO SCH (09:42)
[2016-10-01] MEDS: SENOKOT S TAB PO SCH ×2 (09:42→20:03)
[2016-10-01] MEDS: THIAMINE 100 MG TAB PO SCH (09:42)
[2016-10-01] MEDS: ASPIRIN 81 MG ENTERIC TAB PO SCH (09:42)
[2016-10-01] MEDS: VITAMIN B COMPLEX/VIT C CAP PO SCH (09:42)
[2016-10-01] MEDS: FOLIC ACID 1 MG TAB PO SCH (09:43)
[2016-10-01] MEDS: LISINOPRIL 10 MG TAB PO SCH (09:43)
[2016-10-01] MEDS: ATORVASTATIN 20 MG TAB PO SCH (09:43)
[2016-10-01] MEDS: OMEGA-3 1050MG CAPSULE PO SCH (09:44)
[2016-10-01] MEDS: ENOXAPARIN 40 MG/0.4 ML SYRINGE (J1650) SC SCH (09:44)
[2016-10-01] MEDS: hydroCHLOROthiazide 12.5 MG CAPSULE PO SCH (09:45)
[2016-10-01] MEDS: risperiDONE 0.5 MG TAB PO SCH (20:03)
[2016-10-01] MEDS: QUEtiapine FUMARATE 100 MG TAB PO SCH (20:03)
[2016-10-02 06:00] VITALS: BP 135/63
[2016-10-02] MEDS: THIAMINE 100 MG TAB PO SCH (09:32)
[2016-10-02] MEDS: hydroCHLOROthiazide 12.5 MG CAPSULE PO SCH (09:32)
[2016-10-02] MEDS: VITAMIN B COMPLEX/VIT C CAP PO SCH (09:32)
[2016-10-02] MEDS: ASPIRIN 81 MG ENTERIC TAB PO SCH (09:32)
[2016-10-02] MEDS: ATORVASTATIN 20 MG TAB PO SCH (09:32)
[2016-10-02] MEDS: OMEGA-3 1050MG CAPSULE PO SCH (09:32)
[2016-10-02] MEDS: MULTIVITAMINS/MINERALS THERAP 1 TAB PO SCH (09:33)
[2016-10-02] MEDS: SENOKOT S TAB PO SCH ×2 (09:33→20:12)
[2016-10-02] MEDS: FOLIC ACID 1 MG TAB PO SCH (09:33)
[2016-10-02] MEDS: ENOXAPARIN 40 MG/0.4 ML SYRINGE (J1650) SC SCH (09:34)
[2016-10-02] MEDS: LISINOPRIL 10 MG TAB PO SCH (09:34)
--- NOTE | 2016-10-02 16:36 | IPN ---
DATE: 10/02/2016 Patient seen and examined. On one-to-one observation. No acute events overnight. Patient believes he is at [facility]. Denies any chest pain, sob. Tolerating oral. VITAL SIGNS: Temperature 97, pulse 87, respirations 19, blood pressure 135/63, pulse oximetry 99% on room air. LABORATORY DATA: WBC 7.1, hemoglobin and hematocrit 11.9/35.9, platelets 445. Chemistry: Sodium 136, potassium 4.3, chloride 98, bicarbonate 31, BUN 35, creatinine 0.9. PHYSICAL EXAMINATION: GENERAL: Patient alert, comfortable in no acute distress. HEENT: Moist mucous membranes. Normocephalic, atraumatic. NECK: Supple. CARDIAC: Regular rate and rhythm. Normal S1, S2. PULMONARY: Bilaterally clear to auscultation. No wheezes, rales, or rhonchi. ABDOMEN: Soft and nontender. Positive bowel sounds. EXTREMITIES: No edema, bilateral lower extremities. ASSESSMENT AND PLAN: This is a 70-year-old male patient with underlying medical history of hypertension, dementia, alcohol intoxication who was found on neighbor's porch confused. Brought to the hospital. Was admitted for altered mental status. 1. Encephalopathy, likely progression of dementia. Extensive workup has been completed. Currently patient is waiting for placement. Alternative level of care. 2. Dementia. Supportive care. 3. Hypertension. Continue hydrochlorothiazide/lisinopril. Monitor blood pressure. Kidney function appreciated. 4. History of alcohol abuse. Thiamine, folate, multivitamin. Supportive care. 5. Anxiety. Continue current medication. 6. Dyslipidemia. Continue statin. 7. Deep vein thrombosis (DVT) prophylaxis. Lovenox subcutaneous. DISPOSITION PLANNING: Pending placement. Patient is currently alternative level of care. [facility]
[2016-10-02] MEDS: risperiDONE 0.5 MG TAB PO SCH (20:12)
[2016-10-02] MEDS: QUEtiapine FUMARATE 100 MG TAB PO SCH (20:12)
[2016-10-03 06:00] VITALS: BP 129/59
[2016-10-03] MEDS: MULTIVITAMINS/MINERALS THERAP 1 TAB PO SCH (10:16)
[2016-10-03] MEDS: VITAMIN B COMPLEX/VIT C CAP PO SCH (10:16)
[2016-10-03] MEDS: ASPIRIN 81 MG ENTERIC TAB PO SCH (10:16)
[2016-10-03] MEDS: ATORVASTATIN 20 MG TAB PO SCH (10:16)
[2016-10-03] MEDS: THIAMINE 100 MG TAB PO SCH (10:16)
[2016-10-03] MEDS: LISINOPRIL 10 MG TAB PO SCH (10:17)
[2016-10-03] MEDS: FOLIC ACID 1 MG TAB PO SCH (10:17)
[2016-10-03] MEDS: ENOXAPARIN 40 MG/0.4 ML SYRINGE (J1650) SC SCH (10:17)
[2016-10-03] MEDS: SENOKOT S TAB PO SCH ×2 (10:17→21:49)
[2016-10-03] MEDS: hydroCHLOROthiazide 12.5 MG CAPSULE PO SCH (10:17)
[2016-10-03] MEDS: OMEGA-3 1050MG CAPSULE PO SCH (10:17)
[2016-10-03] MEDS: QUEtiapine FUMARATE 100 MG TAB PO SCH (21:49)
[2016-10-03] MEDS: ACETAMINOPHEN TAB 650MG DOSE (2X325MG) PO PRN (21:49)
[2016-10-03] MEDS: risperiDONE 1 MG TAB PO SCH (21:49)
[2016-10-04 06:00] VITALS: BP 112/55
[2016-10-04] MEDS: SENOKOT S TAB PO SCH ×2 (09:00→20:18)
[2016-10-04] MEDS: LISINOPRIL 10 MG TAB PO SCH (09:57)
[2016-10-04] MEDS: OMEGA-3 1050MG CAPSULE PO SCH (09:57)
[2016-10-04] MEDS: ATORVASTATIN 20 MG TAB PO SCH (09:57)
[2016-10-04] MEDS: hydroCHLOROthiazide 12.5 MG CAPSULE PO SCH (09:57)
[2016-10-04] MEDS: THIAMINE 100 MG TAB PO SCH (09:57)
[2016-10-04] MEDS: MULTIVITAMINS/MINERALS THERAP 1 TAB PO SCH (09:57)
[2016-10-04] MEDS: VITAMIN B COMPLEX/VIT C CAP PO SCH (09:57)
[2016-10-04] MEDS: ASPIRIN 81 MG ENTERIC TAB PO SCH (09:57)
[2016-10-04] MEDS: FOLIC ACID 1 MG TAB PO SCH (09:57)
[2016-10-04] MEDS: ENOXAPARIN 40 MG/0.4 ML SYRINGE (J1650) SC SCH (09:58)
[2016-10-04] MEDS: ACETAMINOPHEN TAB 650MG DOSE (2X325MG) PO PRN (20:18)
[2016-10-04] MEDS: QUEtiapine FUMARATE 100 MG TAB PO SCH (20:18)
[2016-10-04] MEDS: risperiDONE 1 MG TAB PO SCH (20:18)
[2016-10-05 05:50] VITALS: BP 95/53
[2016-10-05 06:30] LABS: MEAN CORPUSCULAR HEMOGLOBIN 32.3 pg (27.0-33.0); MEAN CORPUSCULAR HGB CONC 34.7 g/dl (32.0-36.5); MEAN CORPUSCULAR VOLUME 93.1 fl (80.0-96.0); WHITE BLOOD COUNT 5.2 K/mm3 (4.0-10.0)
[2016-10-05 06:51] LABS: ANION GAP 5 MEQ/L (8-16); BLOOD UREA NITROGEN 27 MG/DL (7-18); CALCIUM LEVEL 8.8 MG/DL (8.8-10.2); CARBON DIOXIDE LEVEL 29 MEQ/L (21-32); CHLORIDE LEVEL 102 MEQ/L (98-107); CREATININE FOR GFR 0.89 MG/DL (0.70-1.30); GLOMERULAR FILTRATION RATE > 60.0 (>42); GLUCOSE, FASTING 101 MG/DL (83-110); SODIUM LEVEL 136 MEQ/L (136-145)
[2016-10-05] MEDS: ASPIRIN 81 MG ENTERIC TAB PO SCH (10:09)
[2016-10-05] MEDS: LISINOPRIL 10 MG TAB PO SCH (10:09)
[2016-10-05] MEDS: VITAMIN B COMPLEX/VIT C CAP PO SCH (10:09)
[2016-10-05] MEDS: hydroCHLOROthiazide 12.5 MG CAPSULE PO SCH (10:10)
[2016-10-05] MEDS: FOLIC ACID 1 MG TAB PO SCH (10:10)
[2016-10-05] MEDS: THIAMINE 100 MG TAB PO SCH (10:10)
[2016-10-05] MEDS: OMEGA-3 1050MG CAPSULE PO SCH (10:10)
[2016-10-05] MEDS: ATORVASTATIN 20 MG TAB PO SCH (10:11)
[2016-10-05] MEDS: SENOKOT S TAB PO SCH ×2 (10:11→20:31)
[2016-10-05] MEDS: MULTIVITAMINS/MINERALS THERAP 1 TAB PO SCH (10:11)
[2016-10-05] MEDS: ENOXAPARIN 40 MG/0.4 ML SYRINGE (J1650) SC SCH (10:12)
[2016-10-05] MEDS: QUEtiapine FUMARATE 100 MG TAB PO SCH (20:30)
[2016-10-05] MEDS: risperiDONE 1 MG TAB PO SCH (20:31)
[2016-10-06 06:00] VITALS: BP 113/60
[2016-10-06] MEDS: FOLIC ACID 1 MG TAB PO SCH (09:01)
[2016-10-06] MEDS: ATORVASTATIN 20 MG TAB PO SCH (09:01)
[2016-10-06] MEDS: VITAMIN B COMPLEX/VIT C CAP PO SCH (09:01)
[2016-10-06] MEDS: MULTIVITAMINS/MINERALS THERAP 1 TAB PO SCH (09:02)
[2016-10-06] MEDS: LISINOPRIL 10 MG TAB PO SCH (09:02)
[2016-10-06] MEDS: THIAMINE 100 MG TAB PO SCH (09:03)
[2016-10-06] MEDS: SENOKOT S TAB PO SCH ×2 (09:03→21:20)
[2016-10-06] MEDS: ASPIRIN 81 MG ENTERIC TAB PO SCH (09:03)
[2016-10-06] MEDS: ENOXAPARIN 40 MG/0.4 ML SYRINGE (J1650) SC SCH (09:04)
[2016-10-06] MEDS: hydroCHLOROthiazide 12.5 MG CAPSULE PO SCH (09:04)
[2016-10-06] MEDS: OMEGA-3 1050MG CAPSULE PO SCH (09:04)
[2016-10-06] MEDS: QUEtiapine FUMARATE 100 MG TAB PO SCH (21:19)
[2016-10-06] MEDS: risperiDONE 1 MG TAB PO SCH (21:19)
[2016-10-07 06:00] VITALS: BP 112/55
[2016-10-07] MEDS: MULTIVITAMINS/MINERALS THERAP 1 TAB PO SCH (09:28)
[2016-10-07] MEDS: ATORVASTATIN 20 MG TAB PO SCH (09:28)
[2016-10-07] MEDS: ASPIRIN 81 MG ENTERIC TAB PO SCH (09:28)
[2016-10-07] MEDS: LISINOPRIL 10 MG TAB PO SCH (09:28)
[2016-10-07] MEDS: SENOKOT S TAB PO SCH ×2 (09:29→20:38)
[2016-10-07] MEDS: VITAMIN B COMPLEX/VIT C CAP PO SCH (09:29)
[2016-10-07] MEDS: FOLIC ACID 1 MG TAB PO SCH (09:29)
[2016-10-07] MEDS: THIAMINE 100 MG TAB PO SCH (09:29)
[2016-10-07] MEDS: hydroCHLOROthiazide 12.5 MG CAPSULE PO SCH (09:29)
[2016-10-07] MEDS: OMEGA-3 1050MG CAPSULE PO SCH (09:29)
[2016-10-07] MEDS: ENOXAPARIN 40 MG/0.4 ML SYRINGE (J1650) SC SCH (09:35)
[2016-10-07] MEDS: QUEtiapine FUMARATE 100 MG TAB PO SCH (20:38)
[2016-10-07] MEDS: risperiDONE 1 MG TAB PO SCH (20:38)
[2016-10-08 06:00] VITALS: BP 115/60
[2016-10-08] MEDS: hydroCHLOROthiazide 12.5 MG CAPSULE PO SCH (09:33)
[2016-10-08] MEDS: VITAMIN B COMPLEX/VIT C CAP PO SCH (09:33)
[2016-10-08] MEDS: LISINOPRIL 10 MG TAB PO SCH (09:34)
[2016-10-08] MEDS: ATORVASTATIN 20 MG TAB PO SCH (09:34)
[2016-10-08] MEDS: MULTIVITAMINS/MINERALS THERAP 1 TAB PO SCH (09:34)
[2016-10-08] MEDS: OMEGA-3 1050MG CAPSULE PO SCH (09:34)
[2016-10-08] MEDS: FOLIC ACID 1 MG TAB PO SCH (09:34)
[2016-10-08] MEDS: THIAMINE 100 MG TAB PO SCH (09:34)
[2016-10-08] MEDS: SENOKOT S TAB PO SCH ×2 (09:34→21:00)
[2016-10-08] MEDS: ASPIRIN 81 MG ENTERIC TAB PO SCH (09:34)
[2016-10-08] MEDS: ENOXAPARIN 40 MG/0.4 ML SYRINGE (J1650) SC SCH (09:35)
[2016-10-08] MEDS: QUEtiapine FUMARATE 100 MG TAB PO SCH (21:00)
[2016-10-08] MEDS: risperiDONE 1 MG TAB PO SCH (21:00)
[2016-10-09 06:00] VITALS: BP 124/65
[2016-10-09] MEDS: OMEGA-3 1050MG CAPSULE PO SCH (09:00)
[2016-10-09] MEDS: ENOXAPARIN 40 MG/0.4 ML SYRINGE (J1650) SC SCH (09:59)
[2016-10-09] MEDS: VITAMIN B COMPLEX/VIT C CAP PO SCH (09:59)
[2016-10-09] MEDS: LISINOPRIL 10 MG TAB PO SCH (10:00)
[2016-10-09] MEDS: SENOKOT S TAB PO SCH ×3 (10:00→20:14)
[2016-10-09] MEDS: hydroCHLOROthiazide 12.5 MG CAPSULE PO SCH (10:00)
[2016-10-09] MEDS: FOLIC ACID 1 MG TAB PO SCH (10:00)
[2016-10-09] MEDS: ASPIRIN 81 MG ENTERIC TAB PO SCH (10:00)
[2016-10-09] MEDS: THIAMINE 100 MG TAB PO SCH (10:00)
[2016-10-09] MEDS: ATORVASTATIN 20 MG TAB PO SCH (10:01)
[2016-10-09] MEDS: MULTIVITAMINS/MINERALS THERAP 1 TAB PO SCH (10:01)
[2016-10-09] MEDS: risperiDONE 1 MG TAB PO SCH ×2 (20:08→20:14)
[2016-10-09] MEDS: QUEtiapine FUMARATE 100 MG TAB PO SCH ×2 (20:08→20:14)
[2016-10-10 06:00] VITALS: BP 124/58
[2016-10-10 09:04] LABS: MEAN CORPUSCULAR HEMOGLOBIN 31.9 pg (27.0-33.0); MEAN CORPUSCULAR VOLUME 93.8 fl (80.0-96.0); RED CELL DISTRIBUTION WIDTH 12.1 % (11.5-14.5); WHITE BLOOD COUNT 5.5 K/mm3 (4.0-10.0)
[2016-10-10 09:38] LABS: ANION GAP 9 MEQ/L (8-16); BLOOD UREA NITROGEN 20 MG/DL (7-18); CALCIUM LEVEL 8.7 MG/DL (8.8-10.2); CARBON DIOXIDE LEVEL 29 MEQ/L (21-32); CHLORIDE LEVEL 100 MEQ/L (98-107); CREATININE FOR GFR 0.83 MG/DL (0.70-1.30); GLOMERULAR FILTRATION RATE > 60.0 (>42); GLUCOSE, FASTING 121 MG/DL (83-110); POTASSIUM SERUM 3.9 MEQ/L (3.5-5.1); SODIUM LEVEL 138 MEQ/L (136-145)
[2016-10-10] MEDS: ASPIRIN 81 MG ENTERIC TAB PO SCH (10:17)
[2016-10-10] MEDS: OMEGA-3 1050MG CAPSULE PO SCH (10:18)
[2016-10-10] MEDS: LISINOPRIL 10 MG TAB PO SCH (10:18)
[2016-10-10] MEDS: FOLIC ACID 1 MG TAB PO SCH (10:18)
[2016-10-10] MEDS: MULTIVITAMINS/MINERALS THERAP 1 TAB PO SCH (10:18)
[2016-10-10] MEDS: hydroCHLOROthiazide 12.5 MG CAPSULE PO SCH (10:19)
[2016-10-10] MEDS: ENOXAPARIN 40 MG/0.4 ML SYRINGE (J1650) SC SCH (10:19)
[2016-10-10] MEDS: THIAMINE 100 MG TAB PO SCH (10:19)
[2016-10-10] MEDS: VITAMIN B COMPLEX/VIT C CAP PO SCH (10:19)
[2016-10-10] MEDS: ATORVASTATIN 20 MG TAB PO SCH (10:19)
[2016-10-10] MEDS: SENOKOT S TAB PO SCH ×2 (10:19→20:21)
--- NOTE | 2016-10-10 13:56 | IPNPDOC ---
Text Note Date of Service The patient was seen on 10/10/16. NOTE Subjective: No acute changes. Feels well. Objective: Vitals: (see below) General: No acute distress, laying comfortably in bed. HEENT: Moist mucous membranes. Neck: No JVD or lymphadenopathy Cardiac: RRR, No murmurs Pulm: Clear to auscultation b/l. No wheezing, rhonchi Abd: NT/ND + BS Ext: No edema or cyanosis Labs (see below) Images: Assessment/Plan 1. Encephalopathy, likely progression of dementia. Extensive workup completed. 2. Dementia - on seroquel 3. HTN stable 4. HLD on statin 5. Anxiety on ativan as needed DVT prophy: Lovenox SC Dispo: pending placement. VS,Fishbone, I+O VS, Fishbone, I+O Laboratory Tests 10/10/16 08:44 Red Blood Count 3.53 L, Mean Corpuscular Volume 93.8, Mean Corpuscular Hemoglobin 31.9, Mean Corpuscular Hemoglobin Concent 34.0, Red Cell Distribution Width 12.1, Calcium Level 8.7 L Vital Signs Date Time Temp Pulse Resp B/P (MAP) Pulse Ox O2 Delivery O2 Flow Rate FiO2 10/10/16 10:18 126/64 10/10/16 06:00 97.9 72 16 98 Room Air I&O- Last 24 Hours up to 6 AM 10/10/16 06:00 Intake Total 1020 ml Balance 1020 ml FANY CARLOS MD Oct 10, 2016 13:56
[2016-10-10] MEDS: QUEtiapine FUMARATE 100 MG TAB PO SCH (20:21)
[2016-10-10] MEDS: risperiDONE 1 MG TAB PO SCH (20:21)
[2016-10-11 06:00] VITALS: BP 126/60
[2016-10-11] MEDS: OMEGA-3 1050MG CAPSULE PO SCH (09:00)
[2016-10-11] MEDS: VITAMIN B COMPLEX/VIT C CAP PO SCH (09:00)
[2016-10-11] MEDS: FOLIC ACID 1 MG TAB PO SCH (09:00)
[2016-10-11] MEDS: THIAMINE 100 MG TAB PO SCH (09:00)
[2016-10-11] MEDS: ATORVASTATIN 20 MG TAB PO SCH (09:00)
[2016-10-11] MEDS: ENOXAPARIN 40 MG/0.4 ML SYRINGE (J1650) SC SCH (09:00)
[2016-10-11] MEDS: LISINOPRIL 10 MG TAB PO SCH (09:00)
[2016-10-11] MEDS: ASPIRIN 81 MG ENTERIC TAB PO SCH (09:00)
[2016-10-11] MEDS: SENOKOT S TAB PO SCH ×2 (09:00→22:04)
[2016-10-11] MEDS: hydroCHLOROthiazide 12.5 MG CAPSULE PO SCH (09:00)
[2016-10-11] MEDS: MULTIVITAMINS/MINERALS THERAP 1 TAB PO SCH (09:00)
[2016-10-11] MEDS: risperiDONE 1 MG TAB PO SCH (22:04)
[2016-10-11] MEDS: QUEtiapine FUMARATE 100 MG TAB PO SCH (22:05)
[2016-10-12 06:00] VITALS: BP 113/56
[2016-10-12 06:05] LABS: MEAN CORPUSCULAR HEMOGLOBIN 31.5 pg (27.0-33.0); MEAN CORPUSCULAR HGB CONC 33.4 g/dl (32.0-36.5); MEAN CORPUSCULAR VOLUME 94.1 fl (80.0-96.0); RED CELL DISTRIBUTION WIDTH 12.2 % (11.5-14.5); WHITE BLOOD COUNT 4.6 K/mm3 (4.0-10.0)
[2016-10-12 06:44] LABS: ANION GAP 8 MEQ/L (8-16); BLOOD UREA NITROGEN 35 MG/DL (7-18); CALCIUM LEVEL 8.3 MG/DL (8.8-10.2); CARBON DIOXIDE LEVEL 28 MEQ/L (21-32); CHLORIDE LEVEL 105 MEQ/L (98-107); CREATININE FOR GFR 0.98 MG/DL (0.70-1.30); GLOMERULAR FILTRATION RATE > 60.0 (>42); GLUCOSE, FASTING 84 MG/DL (83-110); POTASSIUM SERUM 4.3 MEQ/L (3.5-5.1); SODIUM LEVEL 141 MEQ/L (136-145)
[2016-10-12] MEDS: SENOKOT S TAB PO SCH ×2 (09:00→20:24)
[2016-10-12] MEDS: MULTIVITAMINS/MINERALS THERAP 1 TAB PO SCH (10:45)
[2016-10-12] MEDS: VITAMIN B COMPLEX/VIT C CAP PO SCH (10:46)
[2016-10-12] MEDS: FOLIC ACID 1 MG TAB PO SCH (10:46)
[2016-10-12] MEDS: ASPIRIN 81 MG ENTERIC TAB PO SCH (10:47)
[2016-10-12] MEDS: LISINOPRIL 10 MG TAB PO SCH (10:47)
[2016-10-12] MEDS: ATORVASTATIN 20 MG TAB PO SCH (10:47)
[2016-10-12] MEDS: OMEGA-3 1050MG CAPSULE PO SCH (10:47)
[2016-10-12] MEDS: THIAMINE 100 MG TAB PO SCH (10:47)
[2016-10-12] MEDS: ENOXAPARIN 40 MG/0.4 ML SYRINGE (J1650) SC SCH (10:48)
[2016-10-12] MEDS: hydroCHLOROthiazide 12.5 MG CAPSULE PO SCH (10:48)
[2016-10-12] MEDS: QUEtiapine FUMARATE 100 MG TAB PO SCH (20:24)
[2016-10-12] MEDS: ACETAMINOPHEN TAB 650MG DOSE (2X325MG) PO PRN (20:24)
[2016-10-12] MEDS: risperiDONE 1 MG TAB PO SCH (20:24)
[2016-10-13 06:00] VITALS: BP 120/57
[2016-10-13] MEDS: SENOKOT S TAB PO SCH ×2 (09:00→20:54)
[2016-10-13] MEDS: VITAMIN B COMPLEX/VIT C CAP PO SCH (10:38)
[2016-10-13] MEDS: THIAMINE 100 MG TAB PO SCH (10:38)
[2016-10-13] MEDS: FOLIC ACID 1 MG TAB PO SCH (10:39)
[2016-10-13] MEDS: MULTIVITAMINS/MINERALS THERAP 1 TAB PO SCH (10:39)
[2016-10-13] MEDS: OMEGA-3 1050MG CAPSULE PO SCH (10:40)
[2016-10-13] MEDS: LISINOPRIL 10 MG TAB PO SCH (10:40)
[2016-10-13] MEDS: ATORVASTATIN 20 MG TAB PO SCH (10:40)
[2016-10-13] MEDS: ASPIRIN 81 MG ENTERIC TAB PO SCH (10:40)
[2016-10-13] MEDS: hydroCHLOROthiazide 12.5 MG CAPSULE PO SCH (10:42)
[2016-10-13] MEDS: ENOXAPARIN 40 MG/0.4 ML SYRINGE (J1650) SC SCH (10:46)
[2016-10-13] MEDS: ACETAMINOPHEN TAB 650MG DOSE (2X325MG) PO PRN (20:54)
[2016-10-13] MEDS: risperiDONE 1 MG TAB PO SCH (20:54)
[2016-10-13] MEDS: QUEtiapine FUMARATE 100 MG TAB PO SCH (20:54)
[2016-10-14 06:00] VITALS: BP 127/58
[2016-10-14] MEDS: ENOXAPARIN 40 MG/0.4 ML SYRINGE (J1650) SC SCH (09:00)
[2016-10-14] MEDS: SENOKOT S TAB PO SCH ×2 (09:37→20:44)
[2016-10-14] MEDS: FOLIC ACID 1 MG TAB PO SCH (09:37)
[2016-10-14] MEDS: OMEGA-3 1050MG CAPSULE PO SCH (09:37)
[2016-10-14] MEDS: ATORVASTATIN 20 MG TAB PO SCH (09:38)
[2016-10-14] MEDS: hydroCHLOROthiazide 12.5 MG CAPSULE PO SCH (09:38)
[2016-10-14] MEDS: VITAMIN B COMPLEX/VIT C CAP PO SCH (09:38)
[2016-10-14] MEDS: THIAMINE 100 MG TAB PO SCH (09:38)
[2016-10-14] MEDS: LISINOPRIL 10 MG TAB PO SCH (09:38)
[2016-10-14] MEDS: MULTIVITAMINS/MINERALS THERAP 1 TAB PO SCH (09:38)
[2016-10-14] MEDS: ASPIRIN 81 MG ENTERIC TAB PO SCH (09:38)
[2016-10-14 14:00] VITALS: BP 115/56
--- NOTE | 2016-10-14 15:56 | IPN ---
DATE: 10/14/2016 Mr. Palomares is not a useful historian. He has no complaints of pain now. No chest pain. No shortness of breath. He has been up and walking around. He has been reasonable with staff and easily redirectable. Temperature is 97.3, pulse 73, respirations 18, blood pressure 127/58, 98% on room air. Intake and output notable for a positive fluid balance of 720. He is awake, appropriately interactive, pleasantly conversant. Heart is distant sounding. Breathing is symmetrical and rested. No accessory muscle use. Most recent labs are white cell count of 4.6, hemoglobin 10.2. BUN 35, creatinine 0.98. ASSESSMENT: This is a 70-year-old with encephalopathy. PLAN: 1. Patient's encephalopathy is likely from underlying dementia. Based on his behavior on our medical floor, it would seem that he would be appropriate for a wander guard in a unit with perhaps an alarmed door. He is easily redirectable and compliant with staff. 2. Patient has hypertension, which appears to be reasonably controlled with the current setting. 3. Patient has hyperlipidemia, on statin. 4. Patient is awaiting placement.
[2016-10-14] MEDS: ACETAMINOPHEN TAB 650MG DOSE (2X325MG) PO PRN (20:44)
[2016-10-14] MEDS: risperiDONE 1 MG TAB PO SCH (20:44)
[2016-10-14] MEDS: QUEtiapine FUMARATE 100 MG TAB PO SCH (20:44)
[2016-10-15 06:00] VITALS: BP 112/58
[2016-10-15] MEDS: LISINOPRIL 10 MG TAB PO SCH (09:22)
[2016-10-15] MEDS: MULTIVITAMINS/MINERALS THERAP 1 TAB PO SCH (09:22)
[2016-10-15] MEDS: OMEGA-3 1050MG CAPSULE PO SCH (09:22)
[2016-10-15] MEDS: FOLIC ACID 1 MG TAB PO SCH (09:22)
[2016-10-15] MEDS: SENOKOT S TAB PO SCH ×2 (09:22→21:51)
[2016-10-15] MEDS: ATORVASTATIN 20 MG TAB PO SCH (09:22)
[2016-10-15] MEDS: hydroCHLOROthiazide 12.5 MG CAPSULE PO SCH (09:23)
[2016-10-15] MEDS: ENOXAPARIN 40 MG/0.4 ML SYRINGE (J1650) SC SCH (09:23)
[2016-10-15] MEDS: ASPIRIN 81 MG ENTERIC TAB PO SCH (09:23)
[2016-10-15] MEDS: THIAMINE 100 MG TAB PO SCH (09:23)
[2016-10-15] MEDS: VITAMIN B COMPLEX/VIT C CAP PO SCH (09:42)
[2016-10-15] MEDS: QUEtiapine FUMARATE 100 MG TAB PO SCH (21:51)
[2016-10-15] MEDS: risperiDONE 1 MG TAB PO SCH (21:51)
[2016-10-16] MEDS: ACETAMINOPHEN TAB 650MG DOSE (2X325MG) PO PRN (00:57)
[2016-10-16 06:00] VITALS: BP 110/53
[2016-10-16] MEDS: ENOXAPARIN 40 MG/0.4 ML SYRINGE (J1650) SC SCH ×2 (09:00→10:25)
[2016-10-16] MEDS: MULTIVITAMINS/MINERALS THERAP 1 TAB PO SCH (10:23)
[2016-10-16] MEDS: VITAMIN B COMPLEX/VIT C CAP PO SCH (10:23)
[2016-10-16] MEDS: THIAMINE 100 MG TAB PO SCH (10:23)
[2016-10-16] MEDS: ATORVASTATIN 20 MG TAB PO SCH (10:23)
[2016-10-16] MEDS: SENOKOT S TAB PO SCH ×2 (10:23→20:22)
[2016-10-16] MEDS: ASPIRIN 81 MG ENTERIC TAB PO SCH (10:24)
[2016-10-16] MEDS: hydroCHLOROthiazide 12.5 MG CAPSULE PO SCH (10:24)
[2016-10-16] MEDS: OMEGA-3 1050MG CAPSULE PO SCH (10:24)
[2016-10-16] MEDS: FOLIC ACID 1 MG TAB PO SCH (10:24)
[2016-10-16] MEDS: LISINOPRIL 10 MG TAB PO SCH (10:24)
[2016-10-16] MEDS: QUEtiapine FUMARATE 100 MG TAB PO SCH (20:22)
[2016-10-16] MEDS: risperiDONE 1 MG TAB PO SCH (20:22)
[2016-10-17 06:00] VITALS: BP 143/76
[2016-10-17] MEDS: ENOXAPARIN 40 MG/0.4 ML SYRINGE (J1650) SC SCH (09:00)
[2016-10-17] MEDS: hydroCHLOROthiazide 12.5 MG CAPSULE PO SCH (09:29)
[2016-10-17] MEDS: MULTIVITAMINS/MINERALS THERAP 1 TAB PO SCH (09:29)
[2016-10-17] MEDS: FOLIC ACID 1 MG TAB PO SCH (09:29)
[2016-10-17] MEDS: ATORVASTATIN 20 MG TAB PO SCH (09:29)
[2016-10-17] MEDS: ASPIRIN 81 MG ENTERIC TAB PO SCH (09:29)
[2016-10-17] MEDS: SENOKOT S TAB PO SCH ×2 (09:29→20:09)
[2016-10-17] MEDS: THIAMINE 100 MG TAB PO SCH (09:29)
[2016-10-17] MEDS: VITAMIN B COMPLEX/VIT C CAP PO SCH (09:29)
[2016-10-17] MEDS: LISINOPRIL 10 MG TAB PO SCH (09:30)
[2016-10-17] MEDS: OMEGA-3 1050MG CAPSULE PO SCH (09:30)
[2016-10-17] MEDS: QUEtiapine FUMARATE 100 MG TAB PO SCH (20:08)
[2016-10-17] MEDS: risperiDONE 1 MG TAB PO SCH (20:09)
[2016-10-18 06:00] VITALS: BP 123/56
[2016-10-18] MEDS: VITAMIN B COMPLEX/VIT C CAP PO SCH (08:38)
[2016-10-18] MEDS: OMEGA-3 1050MG CAPSULE PO SCH (08:38)
[2016-10-18] MEDS: MULTIVITAMINS/MINERALS THERAP 1 TAB PO SCH (08:38)
[2016-10-18] MEDS: LISINOPRIL 10 MG TAB PO SCH (08:38)
[2016-10-18] MEDS: ATORVASTATIN 20 MG TAB PO SCH (08:38)
[2016-10-18] MEDS: THIAMINE 100 MG TAB PO SCH (08:38)
[2016-10-18] MEDS: ASPIRIN 81 MG ENTERIC TAB PO SCH (08:38)
[2016-10-18] MEDS: hydroCHLOROthiazide 12.5 MG CAPSULE PO SCH (08:38)
[2016-10-18] MEDS: FOLIC ACID 1 MG TAB PO SCH (08:38)
[2016-10-18] MEDS: ENOXAPARIN 40 MG/0.4 ML SYRINGE (J1650) SC SCH (08:38)
[2016-10-18] MEDS: SENOKOT S TAB PO SCH ×2 (08:38→20:04)
[2016-10-18] MEDS: QUEtiapine FUMARATE 100 MG TAB PO SCH (20:04)
[2016-10-18] MEDS: risperiDONE 1 MG TAB PO SCH (20:04)
[2016-10-19 06:00] VITALS: BP 130/68
[2016-10-19 06:21] LABS: MEAN CORPUSCULAR HEMOGLOBIN 30.9 pg (27.0-33.0); MEAN CORPUSCULAR HGB CONC 33.6 g/dl (32.0-36.5); MEAN CORPUSCULAR VOLUME 91.8 fl (80.0-96.0); RED CELL DISTRIBUTION WIDTH 12.1 % (11.5-14.5); WHITE BLOOD COUNT 6.1 K/mm3 (4.0-10.0)
[2016-10-19 06:36] LABS: ANION GAP 6 MEQ/L (8-16); BLOOD UREA NITROGEN 24 MG/DL (7-18); CALCIUM LEVEL 8.5 MG/DL (8.8-10.2); CARBON DIOXIDE LEVEL 28 MEQ/L (21-32); CHLORIDE LEVEL 104 MEQ/L (98-107); CREATININE FOR GFR 0.79 MG/DL (0.70-1.30); GLOMERULAR FILTRATION RATE > 60.0 (>42); GLUCOSE, FASTING 84 MG/DL (83-110); POTASSIUM SERUM 4.3 MEQ/L (3.5-5.1); SODIUM LEVEL 138 MEQ/L (136-145)
[2016-10-19] MEDS: FOLIC ACID 1 MG TAB PO SCH (08:33)
[2016-10-19] MEDS: MULTIVITAMINS/MINERALS THERAP 1 TAB PO SCH (08:33)
[2016-10-19] MEDS: ASPIRIN 81 MG ENTERIC TAB PO SCH (08:33)
[2016-10-19] MEDS: LISINOPRIL 10 MG TAB PO SCH (08:33)
[2016-10-19] MEDS: THIAMINE 100 MG TAB PO SCH (08:33)
[2016-10-19] MEDS: ENOXAPARIN 40 MG/0.4 ML SYRINGE (J1650) SC SCH (08:33)
[2016-10-19] MEDS: VITAMIN B COMPLEX/VIT C CAP PO SCH (08:33)
[2016-10-19] MEDS: ATORVASTATIN 20 MG TAB PO SCH (08:33)
[2016-10-19] MEDS: hydroCHLOROthiazide 12.5 MG CAPSULE PO SCH (08:33)
[2016-10-19] MEDS: OMEGA-3 1050MG CAPSULE PO SCH (08:33)
[2016-10-19] MEDS: SENOKOT S TAB PO SCH ×2 (08:33→12:08)
[2016-10-19] MEDS: risperiDONE 1 MG TAB PO SCH (20:21)
[2016-10-19] MEDS: QUEtiapine FUMARATE 100 MG TAB PO SCH (20:22)
[2016-10-19] MEDS: ACETAMINOPHEN TAB 650MG DOSE (2X325MG) PO PRN (20:25)
[2016-10-20 06:00] VITALS: BP 103/53
[2016-10-20] MEDS: SENOKOT S TAB PO SCH ×2 (08:24→20:45)
[2016-10-20] MEDS: VITAMIN B COMPLEX/VIT C CAP PO SCH (08:24)
[2016-10-20] MEDS: ATORVASTATIN 20 MG TAB PO SCH (08:24)
[2016-10-20] MEDS: FOLIC ACID 1 MG TAB PO SCH (08:24)
[2016-10-20] MEDS: OMEGA-3 1050MG CAPSULE PO SCH (08:24)
[2016-10-20] MEDS: hydroCHLOROthiazide 12.5 MG CAPSULE PO SCH (08:25)
[2016-10-20] MEDS: MULTIVITAMINS/MINERALS THERAP 1 TAB PO SCH (08:25)
[2016-10-20] MEDS: ENOXAPARIN 40 MG/0.4 ML SYRINGE (J1650) SC SCH (08:25)
[2016-10-20] MEDS: ASPIRIN 81 MG ENTERIC TAB PO SCH (08:25)
[2016-10-20] MEDS: THIAMINE 100 MG TAB PO SCH (08:25)
[2016-10-20] MEDS: LISINOPRIL 10 MG TAB PO SCH (09:00)
[2016-10-20] MEDS: ACETAMINOPHEN TAB 650MG DOSE (2X325MG) PO PRN (19:35)
[2016-10-20] MEDS: QUEtiapine FUMARATE 100 MG TAB PO SCH (20:44)
[2016-10-20] MEDS: risperiDONE 1 MG TAB PO SCH (20:44)
[2016-10-21 06:00] VITALS: BP 142/68
[2016-10-21] MEDS: VITAMIN B COMPLEX/VIT C CAP PO SCH (09:43)
[2016-10-21] MEDS: THIAMINE 100 MG TAB PO SCH (09:44)
[2016-10-21] MEDS: hydroCHLOROthiazide 12.5 MG CAPSULE PO SCH (09:44)
[2016-10-21] MEDS: ENOXAPARIN 40 MG/0.4 ML SYRINGE (J1650) SC SCH (09:44)
[2016-10-21] MEDS: MULTIVITAMINS/MINERALS THERAP 1 TAB PO SCH (09:44)
[2016-10-21] MEDS: OMEGA-3 1050MG CAPSULE PO SCH (09:44)
[2016-10-21] MEDS: SENOKOT S TAB PO SCH ×2 (09:44→20:46)
[2016-10-21] MEDS: FOLIC ACID 1 MG TAB PO SCH (09:45)
[2016-10-21] MEDS: ATORVASTATIN 20 MG TAB PO SCH (09:45)
[2016-10-21] MEDS: ASPIRIN 81 MG ENTERIC TAB PO SCH (09:45)
[2016-10-21] MEDS: LISINOPRIL 10 MG TAB PO SCH (09:45)
--- NOTE | 2016-10-21 12:53 | IPNPDOC ---
Text Note Date of Service The patient was seen on 10/21/16. NOTE Subjective: Patient seen and examined at bedside. He has no complaints of pain. He has been up and walking around. He has been reasonable with staff and easily redirectable. 1:1 sitter is also present in his room. Objective: General: NAD, sitting comfortably in chair, in good spirits HEENT: NC/AT Lungs: CTA B/L Heart: +S1S2, RRR Abd: soft, NT, +BS Ext: no edema Psych: alert, oriented to person and place, named president with prompting ASSESSMENT: This is a 70-year-old with encephalopathy. PLAN: 1. Patient's encephalopathy is likely from underlying dementia. Could possibe be appropriate for a wander guard in a unit with perhaps an alarmed door. He is easily redirectable and compliant with staff. 2. Patient has hypertension, which appears to be reasonably controlled with the current setting. 3. Patient has hyperlipidemia, on statin. 4. Patient is awaiting placement. VS,Fishbone, I+O VS, Fishbone, I+O Vital Signs Date Time Temp Pulse Resp B/P (MAP) Pulse Ox O2 Delivery O2 Flow Rate FiO2 10/21/16 09:45 142/68 10/21/16 06:00 97.2 69 17 91 Room Air I&O- Last 24 Hours up to 6 AM 10/21/16 05:59 Intake Total 1140 ml Output Total 0 ml Balance 1140 ml LAURA GALEAS MD Oct 21, 2016 12:53
[2016-10-21] MEDS ORDERED: MOM 30ML SUSPENSION UDC PO PRN (14:00)
[2016-10-21] MEDS: risperiDONE 1 MG TAB PO SCH (20:47)
[2016-10-21] MEDS: QUEtiapine FUMARATE 100 MG TAB PO SCH (20:47)
[2016-10-22 05:20] VITALS: BP 131/63
[2016-10-22] MEDS: SENOKOT S TAB PO SCH ×2 (08:58→21:29)
[2016-10-22] MEDS: LISINOPRIL 10 MG TAB PO SCH (08:59)
[2016-10-22] MEDS: THIAMINE 100 MG TAB PO SCH (08:59)
[2016-10-22] MEDS: ASPIRIN 81 MG ENTERIC TAB PO SCH (08:59)
[2016-10-22] MEDS: MULTIVITAMINS/MINERALS THERAP 1 TAB PO SCH (08:59)
[2016-10-22] MEDS: ATORVASTATIN 20 MG TAB PO SCH (08:59)
[2016-10-22] MEDS: hydroCHLOROthiazide 12.5 MG CAPSULE PO SCH (08:59)
[2016-10-22] MEDS: OMEGA-3 1050MG CAPSULE PO SCH (08:59)
[2016-10-22] MEDS: FOLIC ACID 1 MG TAB PO SCH (08:59)
[2016-10-22] MEDS: ENOXAPARIN 40 MG/0.4 ML SYRINGE (J1650) SC SCH (09:00)
[2016-10-22] MEDS: VITAMIN B COMPLEX/VIT C CAP PO SCH (09:03)
[2016-10-22] MEDS: risperiDONE 1 MG TAB PO SCH (21:29)
[2016-10-22] MEDS: QUEtiapine FUMARATE 100 MG TAB PO SCH (21:29)
[2016-10-23] MEDS: ACETAMINOPHEN TAB 650MG DOSE (2X325MG) PO PRN (01:41)
[2016-10-23] MEDS: OMEGA-3 1050MG CAPSULE PO SCH (09:47)
[2016-10-23] MEDS: FOLIC ACID 1 MG TAB PO SCH (09:47)
[2016-10-23] MEDS: VITAMIN B COMPLEX/VIT C CAP PO SCH (09:48)
[2016-10-23] MEDS: ASPIRIN 81 MG ENTERIC TAB PO SCH (09:48)
[2016-10-23] MEDS: THIAMINE 100 MG TAB PO SCH (09:48)
[2016-10-23] MEDS: ATORVASTATIN 20 MG TAB PO SCH (09:48)
[2016-10-23] MEDS: SENOKOT S TAB PO SCH ×2 (09:49→21:51)
[2016-10-23] MEDS: MULTIVITAMINS/MINERALS THERAP 1 TAB PO SCH (09:49)
[2016-10-23] MEDS: LISINOPRIL 10 MG TAB PO SCH (09:49)
[2016-10-23] MEDS: hydroCHLOROthiazide 12.5 MG CAPSULE PO SCH (09:49)
[2016-10-23] MEDS: ENOXAPARIN 40 MG/0.4 ML SYRINGE (J1650) SC SCH (09:49)
[2016-10-23] MEDS: QUEtiapine FUMARATE 100 MG TAB PO SCH (21:51)
[2016-10-23] MEDS: risperiDONE 1 MG TAB PO SCH (21:51)
[2016-10-24 06:00] VITALS: BP 143/70
[2016-10-24] MEDS: FOLIC ACID 1 MG TAB PO SCH (08:18)
[2016-10-24] MEDS: OMEGA-3 1050MG CAPSULE PO SCH (08:18)
[2016-10-24] MEDS: ATORVASTATIN 20 MG TAB PO SCH (08:18)
[2016-10-24] MEDS: LISINOPRIL 10 MG TAB PO SCH (08:18)
[2016-10-24] MEDS: MULTIVITAMINS/MINERALS THERAP 1 TAB PO SCH (08:19)
[2016-10-24] MEDS: VITAMIN B COMPLEX/VIT C CAP PO SCH (08:19)
[2016-10-24] MEDS: hydroCHLOROthiazide 12.5 MG CAPSULE PO SCH (08:19)
[2016-10-24] MEDS: THIAMINE 100 MG TAB PO SCH (08:19)
[2016-10-24] MEDS: ENOXAPARIN 40 MG/0.4 ML SYRINGE (J1650) SC SCH (08:19)
[2016-10-24] MEDS: ASPIRIN 81 MG ENTERIC TAB PO SCH (08:19)
[2016-10-24] MEDS: SENOKOT S TAB PO SCH ×2 (08:19→20:12)
[2016-10-24] MEDS: risperiDONE 1 MG TAB PO SCH (20:12)
[2016-10-24] MEDS: QUEtiapine FUMARATE 100 MG TAB PO SCH (20:12)
[2016-10-25 06:00] VITALS: BP 127/67
[2016-10-25] MEDS: ASPIRIN 81 MG ENTERIC TAB PO SCH (08:26)
[2016-10-25] MEDS: OMEGA-3 1050MG CAPSULE PO SCH (08:26)
[2016-10-25] MEDS: FOLIC ACID 1 MG TAB PO SCH (08:26)
[2016-10-25] MEDS: LISINOPRIL 10 MG TAB PO SCH (08:26)
[2016-10-25] MEDS: ATORVASTATIN 20 MG TAB PO SCH (08:26)
[2016-10-25] MEDS: hydroCHLOROthiazide 12.5 MG CAPSULE PO SCH (08:26)
[2016-10-25] MEDS: THIAMINE 100 MG TAB PO SCH (08:26)
[2016-10-25] MEDS: MULTIVITAMINS/MINERALS THERAP 1 TAB PO SCH (08:26)
[2016-10-25] MEDS: SENOKOT S TAB PO SCH ×2 (08:26→20:12)
[2016-10-25] MEDS: VITAMIN B COMPLEX/VIT C CAP PO SCH (08:26)
[2016-10-25] MEDS: ENOXAPARIN 40 MG/0.4 ML SYRINGE (J1650) SC SCH (08:27)
[2016-10-25] MEDS: ACETAMINOPHEN TAB 650MG DOSE (2X325MG) PO PRN (20:12)
[2016-10-25] MEDS: QUEtiapine FUMARATE 100 MG TAB PO SCH (20:12)
[2016-10-25] MEDS: risperiDONE 1 MG TAB PO SCH (20:12)
[2016-10-26 06:00] VITALS: BP 142/64
[2016-10-26 06:39] LABS: MEAN CORPUSCULAR HEMOGLOBIN 31.4 pg (27.0-33.0); MEAN CORPUSCULAR HGB CONC 33.9 g/dl (32.0-36.5); MEAN CORPUSCULAR VOLUME 92.4 fl (80.0-96.0); RED CELL DISTRIBUTION WIDTH 11.6 % (11.5-14.5); WHITE BLOOD COUNT 5.2 K/mm3 (4.0-10.0)
[2016-10-26 06:53] LABS: ANION GAP 5 MEQ/L (8-16); BLOOD UREA NITROGEN 21 MG/DL (7-18); CALCIUM LEVEL 8.6 MG/DL (8.8-10.2); CARBON DIOXIDE LEVEL 31 MEQ/L (21-32); CHLORIDE LEVEL 102 MEQ/L (98-107); CREATININE FOR GFR 0.77 MG/DL (0.70-1.30); GLOMERULAR FILTRATION RATE > 60.0 (>42); GLUCOSE, FASTING 83 MG/DL (83-110); SODIUM LEVEL 138 MEQ/L (136-145)
[2016-10-26] MEDS: SENOKOT S TAB PO SCH ×2 (09:13→20:37)
[2016-10-26] MEDS: ATORVASTATIN 20 MG TAB PO SCH (09:13)
[2016-10-26] MEDS: FOLIC ACID 1 MG TAB PO SCH (09:13)
[2016-10-26] MEDS: ASPIRIN 81 MG ENTERIC TAB PO SCH (09:13)
[2016-10-26] MEDS: MULTIVITAMINS/MINERALS THERAP 1 TAB PO SCH (09:22)
[2016-10-26] MEDS: THIAMINE 100 MG TAB PO SCH (09:22)
[2016-10-26] MEDS: OMEGA-3 1050MG CAPSULE PO SCH (09:22)
[2016-10-26] MEDS: hydroCHLOROthiazide 12.5 MG CAPSULE PO SCH (09:22)
[2016-10-26] MEDS: VITAMIN B COMPLEX/VIT C CAP PO SCH (09:22)
[2016-10-26] MEDS: LISINOPRIL 10 MG TAB PO SCH (09:23)
[2016-10-26] MEDS: ENOXAPARIN 40 MG/0.4 ML SYRINGE (J1650) SC SCH (09:24)
[2016-10-26] MEDS: QUEtiapine FUMARATE 100 MG TAB PO SCH (20:37)
[2016-10-26] MEDS: risperiDONE 1 MG TAB PO SCH (20:37)
[2016-10-26] MEDS: ACETAMINOPHEN TAB 650MG DOSE (2X325MG) PO PRN (20:39)
[2016-10-27 06:00] VITALS: BP 123/57
[2016-10-27] MEDS: OMEGA-3 1050MG CAPSULE PO SCH (10:27)
[2016-10-27] MEDS: ASPIRIN 81 MG ENTERIC TAB PO SCH (10:28)
[2016-10-27] MEDS: FOLIC ACID 1 MG TAB PO SCH (10:28)
[2016-10-27] MEDS: THIAMINE 100 MG TAB PO SCH (10:28)
[2016-10-27] MEDS: VITAMIN B COMPLEX/VIT C CAP PO SCH (10:28)
[2016-10-27] MEDS: SENOKOT S TAB PO SCH ×2 (10:28→21:02)
[2016-10-27] MEDS: hydroCHLOROthiazide 12.5 MG CAPSULE PO SCH (10:28)
[2016-10-27] MEDS: LISINOPRIL 10 MG TAB PO SCH (10:29)
[2016-10-27] MEDS: MULTIVITAMINS/MINERALS THERAP 1 TAB PO SCH (10:29)
[2016-10-27] MEDS: ATORVASTATIN 20 MG TAB PO SCH (10:30)
[2016-10-27] MEDS: ENOXAPARIN 40 MG/0.4 ML SYRINGE (J1650) SC SCH (10:30)
[2016-10-27 14:00] VITALS: BP 98/50
[2016-10-27] MEDS: risperiDONE 1 MG TAB PO SCH (21:02)
[2016-10-27] MEDS: QUEtiapine FUMARATE 100 MG TAB PO SCH (21:02)
[2016-10-27] MEDS: ACETAMINOPHEN TAB 650MG DOSE (2X325MG) PO PRN (21:02)
[2016-10-28 06:00] VITALS: BP 120/60
[2016-10-28] MEDS: THIAMINE 100 MG TAB PO SCH (11:23)
[2016-10-28] MEDS: FOLIC ACID 1 MG TAB PO SCH (11:23)
[2016-10-28] MEDS: SENOKOT S TAB PO SCH ×2 (11:23→20:25)
[2016-10-28] MEDS: OMEGA-3 1050MG CAPSULE PO SCH (11:23)
[2016-10-28] MEDS: VITAMIN B COMPLEX/VIT C CAP PO SCH (11:23)
[2016-10-28] MEDS: hydroCHLOROthiazide 12.5 MG CAPSULE PO SCH (11:23)
[2016-10-28] MEDS: ASPIRIN 81 MG ENTERIC TAB PO SCH (11:23)
[2016-10-28] MEDS: LISINOPRIL 10 MG TAB PO SCH (11:23)
[2016-10-28] MEDS: MULTIVITAMINS/MINERALS THERAP 1 TAB PO SCH (11:24)
[2016-10-28] MEDS: ENOXAPARIN 40 MG/0.4 ML SYRINGE (J1650) SC SCH (11:24)
[2016-10-28] MEDS: ATORVASTATIN 20 MG TAB PO SCH (11:24)
--- NOTE | 2016-10-28 18:56 | IPNPDOC ---
Text Note Date of Service The patient was seen on 10/28/16. NOTE Patient seen and examined at bedside. He has no complaints of pain. He has been up and walking around. He has been reasonable with staff and easily redirectable. 1:1 sitter is also present in his room. Objective: General: NAD, sleeping HEENT: NC/AT Lungs: CTA B/L Heart: +S1S2, RRR Abd: soft, NT, +BS Ext: no edema Psych: alert, oriented to person and place, named president with prompting ASSESSMENT: This is a 70-year-old male patient with underlying medical history of hypertension, dementia, alcohol intoxication who was found on neighbor's porch confused. Brought to the hospital. Was admitted for altered mental status. PLAN: 1. Patient's encephalopathy is likely from underlying dementia. Could possibe be appropriate for a wander guard in a unit with perhaps an alarmed door. He is easily redirectable and compliant with staff. 2. hypertension, which appears to be reasonably controlled with the current setting. c/w med 3. Patient has hyperlipidemia, on statin. 4. Patient is awaiting placement. VS,Fishbone, I+O VS, Fishbone, I+O Vital Signs Date Time Temp Pulse Resp B/P (MAP) Pulse Ox O2 Delivery O2 Flow Rate FiO2 10/28/16 06:00 98.0 69 16 120/60 (80) 97 Room Air I&O- Last 24 Hours up to 6 AM 10/28/16 06:00 Intake Total 1320 ml Output Total 0 ml Balance 1320 ml WILI KOCH MD Oct 28, 2016 18:56
[2016-10-28] MEDS: QUEtiapine FUMARATE 100 MG TAB PO SCH (20:25)
[2016-10-28] MEDS: risperiDONE 1 MG TAB PO SCH (20:25)
[2016-10-29 06:00] VITALS: BP 123/61
[2016-10-29] MEDS: ATORVASTATIN 20 MG TAB PO SCH (09:00)
[2016-10-29] MEDS: FOLIC ACID 1 MG TAB PO SCH (09:00)
[2016-10-29] MEDS: OMEGA-3 1050MG CAPSULE PO SCH (09:00)
[2016-10-29] MEDS: VITAMIN B COMPLEX/VIT C CAP PO SCH (09:00)
[2016-10-29] MEDS: ASPIRIN 81 MG ENTERIC TAB PO SCH (09:00)
[2016-10-29] MEDS: ENOXAPARIN 40 MG/0.4 ML SYRINGE (J1650) SC SCH (09:00)
[2016-10-29] MEDS: LISINOPRIL 10 MG TAB PO SCH (09:00)
[2016-10-29] MEDS: THIAMINE 100 MG TAB PO SCH (09:00)
[2016-10-29] MEDS: SENOKOT S TAB PO SCH ×2 (09:00→20:39)
[2016-10-29] MEDS: hydroCHLOROthiazide 12.5 MG CAPSULE PO SCH (09:00)
[2016-10-29] MEDS: MULTIVITAMINS/MINERALS THERAP 1 TAB PO SCH (09:00)
[2016-10-29] MEDS: risperiDONE 1 MG TAB PO SCH (20:39)
[2016-10-29] MEDS: QUEtiapine FUMARATE 100 MG TAB PO SCH (20:40)
[2016-10-30 05:20] VITALS: BP 136/66
[2016-10-30] MEDS: VITAMIN B COMPLEX/VIT C CAP PO SCH (09:03)
[2016-10-30] MEDS: MULTIVITAMINS/MINERALS THERAP 1 TAB PO SCH (09:03)
[2016-10-30] MEDS: ATORVASTATIN 20 MG TAB PO SCH (09:04)
[2016-10-30] MEDS: SENOKOT S TAB PO SCH ×2 (09:04→20:17)
[2016-10-30] MEDS: ASPIRIN 81 MG ENTERIC TAB PO SCH (09:04)
[2016-10-30] MEDS: OMEGA-3 1050MG CAPSULE PO SCH (09:04)
[2016-10-30] MEDS: FOLIC ACID 1 MG TAB PO SCH (09:04)
[2016-10-30] MEDS: LISINOPRIL 10 MG TAB PO SCH (09:04)
[2016-10-30] MEDS: hydroCHLOROthiazide 12.5 MG CAPSULE PO SCH (09:04)
[2016-10-30] MEDS: THIAMINE 100 MG TAB PO SCH (09:04)
[2016-10-30] MEDS: ENOXAPARIN 40 MG/0.4 ML SYRINGE (J1650) SC SCH (09:04)
[2016-10-30] MEDS: QUEtiapine FUMARATE 100 MG TAB PO SCH (20:18)
[2016-10-30] MEDS: risperiDONE 1 MG TAB PO SCH (20:18)
[2016-10-31 05:05] VITALS: BP 110/56
[2016-10-31] MEDS: ASPIRIN 81 MG ENTERIC TAB PO SCH (09:10)
[2016-10-31] MEDS: SENOKOT S TAB PO SCH ×2 (09:10→20:50)
[2016-10-31] MEDS: OMEGA-3 1050MG CAPSULE PO SCH (09:10)
[2016-10-31] MEDS: MULTIVITAMINS/MINERALS THERAP 1 TAB PO SCH (09:10)
[2016-10-31] MEDS: LISINOPRIL 10 MG TAB PO SCH (09:10)
[2016-10-31] MEDS: THIAMINE 100 MG TAB PO SCH (09:10)
[2016-10-31] MEDS: hydroCHLOROthiazide 12.5 MG CAPSULE PO SCH (09:11)
[2016-10-31] MEDS: FOLIC ACID 1 MG TAB PO SCH (09:11)
[2016-10-31] MEDS: ENOXAPARIN 40 MG/0.4 ML SYRINGE (J1650) SC SCH (09:11)
[2016-10-31] MEDS: ATORVASTATIN 20 MG TAB PO SCH (09:11)
[2016-10-31] MEDS: VITAMIN B COMPLEX/VIT C CAP PO SCH (09:11)
[2016-10-31] MEDS: QUEtiapine FUMARATE 100 MG TAB PO SCH (20:50)
[2016-10-31] MEDS: risperiDONE 1 MG TAB PO SCH (20:50)
[2016-11-01 06:00] VITALS: BP 117/58
[2016-11-01 06:52] LABS: MEAN CORPUSCULAR HEMOGLOBIN 31.3 pg (27.0-33.0); MEAN CORPUSCULAR HGB CONC 34.6 g/dl (32.0-36.5); MEAN CORPUSCULAR VOLUME 90.5 fl (80.0-96.0); RED CELL DISTRIBUTION WIDTH 11.8 % (11.5-14.5); WHITE BLOOD COUNT 4.6 K/mm3 (4.0-10.0)
[2016-11-01 07:01] LABS: ANION GAP 8 MEQ/L (8-16); BLOOD UREA NITROGEN 26 MG/DL (7-18); CALCIUM LEVEL 8.2 MG/DL (8.8-10.2); CARBON DIOXIDE LEVEL 28 MEQ/L (21-32); CHLORIDE LEVEL 104 MEQ/L (98-107); CREATININE FOR GFR 0.71 MG/DL (0.70-1.30); GLOMERULAR FILTRATION RATE > 60.0 (>42); GLUCOSE, FASTING 83 MG/DL (83-110); MAGNESIUM LEVEL 1.9 MG/DL (1.8-2.4); POTASSIUM SERUM 4.1 MEQ/L (3.5-5.1); SODIUM LEVEL 140 MEQ/L (136-145)
[2016-11-01] MEDS: VITAMIN B COMPLEX/VIT C CAP PO SCH (09:14)
[2016-11-01] MEDS: ASPIRIN 81 MG ENTERIC TAB PO SCH (09:14)
[2016-11-01] MEDS: SENOKOT S TAB PO SCH ×2 (09:14→21:50)
[2016-11-01] MEDS: MULTIVITAMINS/MINERALS THERAP 1 TAB PO SCH (09:14)
[2016-11-01] MEDS: OMEGA-3 1050MG CAPSULE PO SCH (09:14)
[2016-11-01] MEDS: THIAMINE 100 MG TAB PO SCH (09:15)
[2016-11-01] MEDS: FOLIC ACID 1 MG TAB PO SCH (09:15)
[2016-11-01] MEDS: ATORVASTATIN 20 MG TAB PO SCH (09:15)
[2016-11-01] MEDS: LISINOPRIL 10 MG TAB PO SCH (09:17)
[2016-11-01] MEDS: hydroCHLOROthiazide 12.5 MG CAPSULE PO SCH (09:17)
[2016-11-01] MEDS: ENOXAPARIN 40 MG/0.4 ML SYRINGE (J1650) SC SCH (09:38)
[2016-11-01] MEDS: risperiDONE 1 MG TAB PO SCH (21:50)
[2016-11-01] MEDS: QUEtiapine FUMARATE 100 MG TAB PO SCH (21:50)
[2016-11-01 22:00] VITALS: BP 169/54
[2016-11-02] MEDS: ACETAMINOPHEN TAB 650MG DOSE (2X325MG) PO PRN ×2 (01:00→02:20)
[2016-11-02 06:00] VITALS: BP 123/58
[2016-11-02] MEDS: SENOKOT S TAB PO SCH ×2 (10:09→21:03)
[2016-11-02] MEDS: ATORVASTATIN 20 MG TAB PO SCH (10:10)
[2016-11-02] MEDS: OMEGA-3 1050MG CAPSULE PO SCH (10:10)
[2016-11-02] MEDS: hydroCHLOROthiazide 12.5 MG CAPSULE PO SCH (10:10)
[2016-11-02] MEDS: THIAMINE 100 MG TAB PO SCH (10:11)
[2016-11-02] MEDS: VITAMIN B COMPLEX/VIT C CAP PO SCH (10:11)
[2016-11-02] MEDS: ASPIRIN 81 MG ENTERIC TAB PO SCH (10:12)
[2016-11-02] MEDS: LISINOPRIL 10 MG TAB PO SCH (10:13)
[2016-11-02] MEDS: MULTIVITAMINS/MINERALS THERAP 1 TAB PO SCH (10:13)
[2016-11-02] MEDS: FOLIC ACID 1 MG TAB PO SCH (10:13)
[2016-11-02] MEDS: ENOXAPARIN 40 MG/0.4 ML SYRINGE (J1650) SC SCH (10:14)
[2016-11-02 14:00] VITALS: BP 127/62
[2016-11-02] MEDS: QUEtiapine FUMARATE 100 MG TAB PO SCH (21:03)
[2016-11-02] MEDS: risperiDONE 1 MG TAB PO SCH (21:03)
[2016-11-03] MEDS: OMEGA-3 1050MG CAPSULE PO SCH (08:37)
[2016-11-03] MEDS: ASPIRIN 81 MG ENTERIC TAB PO SCH (08:37)
[2016-11-03] MEDS: ATORVASTATIN 20 MG TAB PO SCH (08:38)
[2016-11-03] MEDS: FOLIC ACID 1 MG TAB PO SCH (08:38)
[2016-11-03] MEDS: THIAMINE 100 MG TAB PO SCH (08:38)
[2016-11-03] MEDS: VITAMIN B COMPLEX/VIT C CAP PO SCH (08:38)
[2016-11-03] MEDS: SENOKOT S TAB PO SCH ×2 (08:38→20:54)
[2016-11-03] MEDS: LISINOPRIL 10 MG TAB PO SCH (08:38)
[2016-11-03] MEDS: MULTIVITAMINS/MINERALS THERAP 1 TAB PO SCH (08:38)
[2016-11-03] MEDS: hydroCHLOROthiazide 12.5 MG CAPSULE PO SCH (08:39)
[2016-11-03] MEDS: ENOXAPARIN 40 MG/0.4 ML SYRINGE (J1650) SC SCH (08:39)
[2016-11-03] MEDS: QUEtiapine FUMARATE 100 MG TAB PO SCH (20:54)
[2016-11-03] MEDS: risperiDONE 1 MG TAB PO SCH (20:54)
[2016-11-04 06:00] VITALS: BP 113/60
--- NOTE | 2016-11-04 08:38 | IPN ---
DATE: 11/04/2016 NOTE: The patient was seen and examined at bedside. He was actually asleep when I saw him this morning. Per the sitter who was in there, the patient has not slept well in the evening.. He woke up at 3:00 a.m. being restless and walking around the room and did not fall back to sleep until 6:00 a.m. For the past couple of days, he has been active, has no complaints. He has been very reasonable with the staff and easily directable to be staying in his room. There is a one-to-one sitter at all times present in his room. VITAL SIGNS: Temperature 97.0, pulse 90, respiratory rate of 18, blood pressure of 113/60 (77), pulse oximetry of 100% on room air. OBJECTIVE: GENERAL: No acute distress. Sleeping. HEENT: Atraumatic, normocephalic. LUNGS: Clear to auscultation bilaterally. HEART: Positive S1, S2. Regular rate and rhythm. No murmurs, gallops or rubs appreciated. ABDOMEN: Soft, nondistended. Positive bowel sounds in all four quadrants. EXTREMITIES: No peripheral edema or cyanosis appreciated. IMAGING: No new imaging was done. LABORATORY DATA: No new laboratories were drawn today, last laboratories were drawn on 11/01/2016, which hematology showed a WBC of 4.6, hemoglobin 10.3, hematocrit 29.8 and platelets of 449. No new chemistries were drawn today. Last ones were drawn on 11/01/2016. Sodium was 140, potassium 4.1, chloride of 104, carbon dioxide of 28, BUN of 26, creatinine of 0.71, fasting glucose of 83, anion gap of 8, calcium of 8.2, magnesium 1.9. ASSESSMENT: This is a 70-year-old male patient with underlying medical history of hypertension, dementia, alcohol intoxication, who was brought to the hospital when he was found on his neighbor's porch and confused. He was admitted for altered mental status. PLAN: 1. The patient's encephalopathy is likely from underlying dementia, it is appropriate for him to have a one-to-one sitter at all times. He is easily directable and is compliant with the staff. 2. Hypertension, which appears reasonable with the current settings. Continue with current medications. 3. The patient with hyperlipidemia, currently on statins, continue. 4. The patient is awaiting placement. My preceptor for this patient encounter was Dr. Willis. The preceptor was physically present in the building during the encounter and was fully available. As needed, all aspects of the patient interview, examination, medical decision making process, and medical care plan development were reviewed and approved by the preceptor. The preceptor is aware and concurs with the plan as stated in the body of this note and will attest to such by his/her cosignature. DINA
[2016-11-04] MEDS: ASPIRIN 81 MG ENTERIC TAB PO SCH (09:17)
[2016-11-04] MEDS: OMEGA-3 1050MG CAPSULE PO SCH (09:17)
[2016-11-04] MEDS: THIAMINE 100 MG TAB PO SCH (09:18)
[2016-11-04] MEDS: VITAMIN B COMPLEX/VIT C CAP PO SCH (09:18)
[2016-11-04] MEDS: ATORVASTATIN 20 MG TAB PO SCH (09:18)
[2016-11-04] MEDS: FOLIC ACID 1 MG TAB PO SCH (09:18)
[2016-11-04] MEDS: hydroCHLOROthiazide 12.5 MG CAPSULE PO SCH (09:18)
[2016-11-04] MEDS: MULTIVITAMINS/MINERALS THERAP 1 TAB PO SCH (09:18)
[2016-11-04] MEDS: SENOKOT S TAB PO SCH ×2 (09:18→20:31)
[2016-11-04] MEDS: ENOXAPARIN 40 MG/0.4 ML SYRINGE (J1650) SC SCH (09:19)
[2016-11-04] MEDS: LISINOPRIL 10 MG TAB PO SCH (09:19)
[2016-11-04] MEDS: risperiDONE 1 MG TAB PO SCH (20:30)
[2016-11-04] MEDS: QUEtiapine FUMARATE 100 MG TAB PO SCH (20:31)
[2016-11-05 06:00] VITALS: BP 131/60
[2016-11-05] MEDS: ATORVASTATIN 20 MG TAB PO SCH (09:29)
[2016-11-05] MEDS: ASPIRIN 81 MG ENTERIC TAB PO SCH (09:29)
[2016-11-05] MEDS: SENOKOT S TAB PO SCH ×2 (09:29→20:17)
[2016-11-05] MEDS: MULTIVITAMINS/MINERALS THERAP 1 TAB PO SCH (09:29)
[2016-11-05] MEDS: FOLIC ACID 1 MG TAB PO SCH (09:29)
[2016-11-05] MEDS: LISINOPRIL 10 MG TAB PO SCH (09:30)
[2016-11-05] MEDS: hydroCHLOROthiazide 12.5 MG CAPSULE PO SCH (09:30)
[2016-11-05] MEDS: THIAMINE 100 MG TAB PO SCH (09:30)
[2016-11-05] MEDS: OMEGA-3 1050MG CAPSULE PO SCH (09:30)
[2016-11-05] MEDS: ENOXAPARIN 40 MG/0.4 ML SYRINGE (J1650) SC SCH (09:30)
[2016-11-05] MEDS: VITAMIN B COMPLEX/VIT C CAP PO SCH (09:30)
[2016-11-05] MEDS: QUEtiapine FUMARATE 100 MG TAB PO SCH (20:16)
[2016-11-05] MEDS: risperiDONE 1 MG TAB PO SCH (20:16)
[2016-11-06 06:00] VITALS: BP 138/64
[2016-11-06] MEDS ORDERED: RISP1TAB42 PO (08:45)
[2016-11-06] MEDS: ASPIRIN 81 MG ENTERIC TAB PO SCH (08:53)
[2016-11-06] MEDS: MULTIVITAMINS/MINERALS THERAP 1 TAB PO SCH (08:53)
[2016-11-06] MEDS: THIAMINE 100 MG TAB PO SCH (08:53)
[2016-11-06] MEDS: hydroCHLOROthiazide 12.5 MG CAPSULE PO SCH (08:53)
[2016-11-06] MEDS: FOLIC ACID 1 MG TAB PO SCH (08:53)
[2016-11-06 08:54] VITALS: BP 104/70
[2016-11-06] MEDS: VITAMIN B COMPLEX/VIT C CAP PO SCH (08:54)
[2016-11-06] MEDS: LISINOPRIL 10 MG TAB PO SCH (08:54)
[2016-11-06] MEDS: SENOKOT S TAB PO SCH (08:54)
[2016-11-06] MEDS: ATORVASTATIN 20 MG TAB PO SCH (08:55)
[2016-11-06] MEDS: OMEGA-3 1050MG CAPSULE PO SCH (08:59)
[2016-11-06] MEDS: ENOXAPARIN 40 MG/0.4 ML SYRINGE (J1650) SC SCH (08:59)
--- NOTE | 2016-11-06 18:33 | DS.PDOC ---
Discharge Summary General Date of Admission Aug 25, 2016 at 21:23 Date of Discharge Nov 06, 2016 Discharge Summary PROCEDURES PERFORMED DURING STAY: [None]. ADMITTING DIAGNOSES: 1. Altered Mental Status 2. Metabolic Encephalopathy DISCHARGE DIAGNOSES: 1. Dementia 2. HTN 3. Dyslipidemia 4. Anxiety COMPLICATIONS/CHIEF COMPLAINT: Altered Mental Status / Encephalopathy. HISTORY OF PRESENT ILLNESS: Limited by patient's mental status. This is a 70-year-old male patient. Based on medication review, patient likely has underlying dementia with hypertension with dyslipidemia. As per emergency department (ED) physician, patient was found on neighbor's porch confused. Subsequently, emergency medical services (EMS) was called. Patient was brought here. In the emergency room patient was confused, alert, oriented to person. Thinks that this is 1918. Does not know where he is and does not know why he is at the hospital. Patient could not give a full past medical history or past surgical history. Does not know if he has any family. Speaks in gibberish. Is eating in the emergency room. Has pulled out his intravenous (IV). Able to move all four extremities. Denies any chest pain, pressure, or discomfort. Denies any abdominal pain. Denies any vision change. Further history is limited. Spoken to patient's daughter, Preeti, phone number is [phone]. As per patient's daughter, the patient sees primary care provider at the [facility] and sees psychiatrist for dementia. Only medical history that the patient's daughter is aware is dementia. As per patient's daughter, the patient has been diagnosed with dementia about 2 years ago when the patient's girlfriend was taken away from him , placed in a facility. Subsequently, the patient was taken by the daughter to [place], but en route, the patient became delirious with worsening dementia, had a full workup by the physicians in [place], was diagnosed with early onset dementia. Subsequently, was advised to place the patient back to his regular environment, which has been done. The patient was brought back to his old home and subsequently set up followup with [facility] with visiting nurse service and with followup about 2 weeks ago. The daughter last saw the patient in February of 2016 but has been in telephone contact with the patient on a daily to every other day basis. The patient used to be a heavy drinker for the past 40 years but stopped drinking about a year ago, as recommended by the patient's psychiatrist. As per daughter, the patient lives in a closed community and daughter has spoken to the patient's neighbor. The patient has not really been drinking for the past 1 year. Furthermore, about 2 weeks ago, the patient's daughter was informed by visiting nurse that the patient has not been taking his medication and has left the stove on with house filled with propane and the visiting nurse is no longer feeling safe visiting his house. And the patient's daughter was in the process of setting the patient up to a facility, possible assisted living versus a group home facility. About 2 weeks ago, the patient's daughter was not able to reach the patient, and the patient's daughter has been trying to contact the patient's neighbors and relatives to find out and make sure the patient is okay and subsequently the patient was brought to the hospital earlier today by the patient's neighbor because he was found on the porch confused. The patient's daughter reported that when she saw him in February 2016, the patient was alert and able to have a conversation, oriented times three but currently the patient is only alert to person and is talking gibberish. Goals of care have also been discussed with the patient's daughter. Will complete a workup, which includes MRIs. Urine toxicology has been negative. Will get RPR, ESR, CRP and when the workup is complete, will consider for possible placement given home is no longer a safe environment for the patient, and he no longer can take care of himself. Patient and family services (PFS) has been consulted. HOSPITAL COURSE: Patient was admitted to the floor and Imaging such as CT Head, MRI Brain showed no acute findings Lab work, vitals were not suggestive of any underlying infectious or reversible etiology. Patient had a through work up with ESR, CRP, syphilis which were all negative. TSH, Ammonia levels within normal limits, Toxicology screening was negative and there were no evidence of infection. It was decided that patient will need placement for advanced dementia and the patients family agree. [facility] got on board to assist with placement. While waiting for placement patient chronic medical problems were managed. DISCHARGE MEDICATIONS: Please see below. ALLERGIES: Please see below. PHYSICAL EXAMINATION ON DISCHARGE: VITAL SIGNS: Please see below. GENERAL: No acute distress. Sleeping. HEENT: Atraumatic, normocephalic. LUNGS: Clear to auscultation bilaterally. No ronchi, crackles or wheezing. HEART: Positive S1, S2. Regular rate and rhythm. No murmurs, gallops or rubs appreciated. ABDOMEN: Soft, nondistended. Positive bowel sounds in all four quadrants. EXTREMITIES: No peripheral edema or cyanosis appreciated. LABORATORY DATA: Please see below. IMAGIN10/26/16 EKG SINUS RHYTHM NSTTW ABNORMALITY NO PRIOR FOR COMPARISON 10/26/16 CT head without contrast No acute hemorrhage or infarct. Findings are consistent with age-related atrophy and chronic small vessel ischemic disease. 10/26/16 Chest Xray There is no acute cardiopulmonary disease. 10/26/16 MRI without contrast 1. Small vessel ischemic disease. 2. Mild volume loss. ACTIVITY: As tolerated. DIET: Soft diet. Ensure enlive DISCHARGE PLAN: 1. Dementia, it is appropriate for him to have a one-to-one sitter at all times. He is easily directable and is compliant with the staff. Continue Seroquel and Risperdal. Continue care at [facility] 2. Hypertension, which appears reasonable with the current settings. Continue with current medications, Lisinopril 3. Hyperlipidemia, currently on statins, continue. ITEMS TO FOLLOWUP ON OUTPATIENT: 1. Continue care at [facility] DISCHARGE CONDITION: Stable TIME SPENT ON DISCHARGE: Greater than 30 minutes. Vital Signs/I&Os Vital Signs Date Time Temp Pulse Resp B/P (MAP) Pulse Ox O2 Delivery O2 Flow Rate FiO2 11/06/16 08:54 104/70 11/06/16 08:00 Room Air 11/06/16 06:00 97.6 88 18 97 I&O- Last 24 Hours up to 6 AM 11/07/16 06:00 Intake Total 240 ml Balance 240 ml Discharge Medications Scheduled (Lisinopril/Hydrochlorothi 10-12.5 mg) 1 Tab Tab, 1 TAB PO DAILY, (Reported) (Garlic) 1,000 Mg Cap, 1,000 MG PO DAILY, (Reported) Aspirin (Aspirin EC) 81 Mg Tabec, 81 MG PO DAILY, (Reported) Atorvastatin Calcium (Atorvastatin Calcium) 40 Mg Tab, 20 MG PO DAILY, (Reported ) B1/B2/B3/B5/B6 (Vitamin B Complex) 1 Tab Tab, 1 TAB PO DAILY, (Reported) Fish Oil (Fish Oil 1000 mg) 1 Cap Cap, 1 CAP PO DAILY, (Reported) Folic Acid (Folic Acid) 1 Mg Tab, 1 MG PO DAILY, (Reported) Memantine Hydrochloride (Memantine HCl) 10 Mg Tab, 10 MG PO BID, (Reported) Quetiapine Fumerate (Quetiapine Fumarate) 100 Mg Tab, 100 MG PO QHS, (Reported) Risperidone (Risperdal) 1 Mg Tab, 1 MG PO QHS Allergies Coded Allergies: No Known Drug Allergy (Verified Allergy, Unknown, 08/25/16) VERIFIED PER PATIENT'S DAUGHTER TAMIKAPRIETO Ellington, Nov 06, 2016 18:33
== END 2016-11-06 09:27 | DRG 884 ==
LOC: M ED 18:02 → EDBD 18:02 → M ED INP 21:23 → M PCU 23:48 → M MSPAV 08-28 15:37
PROVIDERS: ADMIT Hospitalist; ATTEND Internal Medicine
DX: F03.91 Unspecified dementia, unspecified severity, with behavioral disturbance (principal); G93.41 Metabolic encephalopathy; I10 Essential (primary) hypertension; E78.5 Hyperlipidemia, unspecified; F41.9 Anxiety disorder, unspecified; Z79.82 Long term (current) use of aspirin; Z79.899 Other long term (current) drug therapy